=== PATIENT | male | born 1975 | race African-American/Black ===

== ENCOUNTER 2016-12-21 20:32 | Inpatient (IN) ==
--- NOTE | 2016-12-21 20:54 | EKG Report ---
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
[2016-12-21] MEDS ORDERED: SODIUM CHLORIDE 0.9% 2,000 ML IV STA (23:50)
[2016-12-21] MEDS ORDERED: PIPERACILLIN/TAZOBACTAM 3,375 MG in SODIUM CHLORIDE 0.9% 100 ML IV STA (23:50)
[2016-12-21] MEDS ORDERED: VANCOMYCIN INJ 1,000 MG in SODIUM CHLORIDE 0.9% 250 ML IV STA (23:51)
--- NOTE | 2016-12-21 23:54 | Emergency Department Note ---
Arrival - Arrival Chief Complaint: Shortness of Breath Stated Complaint: SOB x 3 days ED Nursing Triage Note: Patient to triage with c/o SOB x 3 days, worse with exertion. denies CP. Mode of Arrival: Ambulatory Time Seen by Provider: 12/21/16 23:09 - History of Present Illness HPI Narrative: This is a 41-year-old male of descent who developed abdominal discomfort 2 weeks ago which was not severe and which did not require him to seek medical attention who developed shortness of breath and right-sided chest pain which started today. His vital signs show a heart rate of 120 bpm with a room air O2 sat of 95%. His urine has been grossly bloody off and on for several months. Allergies/Adverse Reactions: Allergies Allergy/AdvReac Type Severity Reaction Status Date / Time No Known Allergies Allergy Unverified 12/21/16 20:52 Home Medications: Home Medications Medication Instructions Recorded Confirmed Type No Known Home Medications [No 12/21/16 12/21/16 History Known Home Medications] Review of System - Review of System Constitutional: Present: fever, weakness Eyes: Absent: redness, vision change, other Head/Ears/Nose/Throat: Absent: epistaxis, nasal drainage Respiratory: Present: cough. Absent: respiratory distress, wheezing Cardiovascular: Present: dyspnea on exertion Gastrointestinal: Absent: nausea, vomiting, diarrhea Genitourinary male: Present: hematuria Musculoskeletal: Absent: joint swelling, lower back pain Skin: Absent: change in color, change in hair/nails Neurological: Absent: numbness, paresthesias, confusion Psychiatric: Absent: anxiety, suicidal thoughts, homicidal thoughts Endocrine: Absent: heat intolerance, polydipsia, polyuria Hematological/Lymphatic: Absent: easy bruising, lymphadenopathy Allergic/Immunologic: Absent: urticaria, itchy eyes Medical,Surgical,& Family Hx - Medical History Respiratory: History of: Asthma - Social History Smoking Status: Current every day smoker Frequency of Alcohol Use: Rarely Type of Drug Use: None Exam Vital Signs: Vital Signs Temperature 99.5 F 12/21/16 20:36 Pulse Rate 140 H 12/21/16 20:36 Respiratory Rate 26 H 12/21/16 20:36 Blood Pressure 133/96 12/21/16 20:36 O2 Sat by Pulse Oximetry 100 12/21/16 20:36 - General Exam limited due to: ALOC - Head Head exam: Present: atraumatic - Eye Eye exam: Present: PERRL, EOMI - ENT ENT exam: Present: normal exam, mucous membranes dry - Neck Neck exam: Present: normal inspection, full ROM - Chest Chest inspection: Present: normal inspection, symmetric chest wall rise - Respiratory Respiratory exam: Present: normal lung sounds bilaterally - Cardiovascular Cardiovascular exam: Present: tachycardia - Abdominal Exam Abdominal exam: Present: soft, normal bowel sounds - Extremities Exam Extremities exam: Present: normal inspection - Back Exam Back exam: Present: normal inspection. Absent: CVA tenderness (R), CVA tenderness (L) - Neurological Exam Neurological exam: Present: alert, oriented X3 - Psychiatric Psychiatric exam: Present: normal affect, normal mood - Skin Skin exam: Present: warm, dry Course Course Narrative: The CT scan of the chest shows a right lingular infiltrate with associated para pneumonic effusion has a heart rate of 130 in spite of 2 L of normal saline. His blood pressure is normal he is not hypoxic but he is complaining of right pleuritic chest pain. Pulmonary embolus was ruled out by CT scan. The case was discussed with the hospitalist who agreed to admit him to the hospital for intravenous antibiotics and further evaluation. Results - Labs CBC & BMP: 12/22/16 00:10 12/22/16 00:10 Disposition Clinical Impression: Lingular pneumonia, Parapneumonic effusion, Sepsis Disposition: Still a Patient Additional Instructions: The CT scan shows a right lingular infiltrate with a and associated parapneumonic effusion. The patient has chest pain but no hypoxemia nor hypotension. The patient continues to have tachycardia with a rate of 130 bpm after 2 L of intravenous fluids. Therefore it seems reasonable that the patient be admitted for intravenous antibiotics and further evaluation. The case was discussed with the hospitalist team who agreed to admit the patient.
[2016-12-22 00:30] LABS: Basophils % 0.4 % (0.0-0.8); Hemoglobin 13.7 GM/DL (14.0-18.0); Immature Granulocytes % 0.5 %; Immature Granulocytes Absolute 0.05 #; Lymphocytes # 1.4 10*3/uL (1.4-4.0); Lymphocytes % 14.4 % (21.2-54.2); Mean Corpuscular HGB Conc 34.3 GM/DL (32-36); Mean Corpuscular Hemoglobin 33 PG (27-34); Mean Corpuscular Volume 96.4 FL (87-102); Mean Platelet Volume 11.2 FL (9.6-12.0); Monocytes # 0.4 10*3/uL (0.11-0.8); Monocytes % 4.4 % (1.7-12.7); Neutrophils # 7.9 10*3/uL (1.4-7.4); Neutrophils % 80.3 % (38.7-73.9); Platelet Count 118 T/CUMM (130-400); Red Blood Count 4.15 MC/CUMM (3.8-5.5); Red Cell Distribution Width 12.2 % (9.3-17.3); White Blood Count 9.8 T/CUMM (4-12)
[2016-12-22 00:38] LABS: Apearance,Urine Slightly Hazy (Clear); Bilirubin,Urine Small mg/dL (Negative); Blood, Urine Moderate mg/dL (Negative); Glucose,Urine (UA) Negative (Negative); Hyaline Casts,Urine 54 /LPF (0-3); Ketones,Urine Negative (Negative); Mucus,Urine Many /LPF (Occasional); Nitrite,Urine Negative (Negative); Protein,Urine >=500 MG/DL; RBC,Urine 3 /HPF (0-4); Urine Color Amber (Yellow); Urine Specific Gravity 1.033 (1.001-1.035); WBC,Urine 3 /HPF (0-6)
[2016-12-22 00:47] LABS: VBG Base Excess -5.3 MEQ/L (0-4); VBG HCO3 19.6 MEQ/L (24-28); VBG Oxygen Saturation 70.3 %; VBG PCO2 42.1 MMHG (41-51); VBG PH 7.306; VBG PO2 46.5 MMHG (17-40)
[2016-12-22 00:50] LABS: Albumin 3.2 G/DL (3.4-5.0); Bilirubin,Total 2.4 MG/DL (0.2-1.0); Calcium 8.4 MG/DL (8.5-10.1); Osmolality,Calculated 262.5 MOS/KG (273-304); Potassium 3.8 MMOL/L (3.5-5.1); Total Protein 7.5 G/DL (6.4-8.3)
[2016-12-22 00:51] LABS: Lactic Acid 4.1 MMOL/L (0.4-2.0)
[2016-12-22] MEDS ORDERED: PIPERACILLIN/TAZOBACTAM 3,375 MG VIAL IV ONE (00:56)
[2016-12-22] MEDS ORDERED: SODIUM CHLORIDE 0.9% 100 ML IV ONE (00:56)
[2016-12-22] MEDS ORDERED: VANCOMYCIN 1,000 MG VIAL ONE (00:56)
[2016-12-22] MEDS ORDERED: KETOROLAC 30 MG/1 ML VIAL IV STA (01:42)
[2016-12-22] MEDS ORDERED: KETOROLAC 30 MG/1 ML VIAL ONE (01:50)
--- NOTE | 2016-12-22 03:34 | Hospitalist History & Physical ---
Assessment and Plan (1) Cavitary pneumonia Status: Acute Assessment and plan: This is accompanied by fevers and some night sweats at home the patient was been losing weight. Concerned about chronic granulomatous infections. He gives a history of diabetes that just started getting sick but the seen on CT of the chest does not appear acute. This patient should be admitted to a negative pressure room. He does have significant hypoxia I will therefore need to be admitted to the intensive care unit. Obtain a chest x-ray PA and lateral. Current Visit: Yes (2) Pleural effusion Status: Acute Assessment and plan: This could be a parapneumonic effusion. Ligaments cannot be ruled out. Patient will be consulted to pulmonology alongside a consultation to infectious disease to assist with evaluation and management. Current Visit: Yes (3) Weight loss Status: Acute Assessment and plan: Evaluate for chronic infection including HIV granulomatous infection also for malignancy. Current Visit: Yes (4) Thrombocytopenia Status: Acute Current Visit: Yes (5) Chronic anemia Status: Acute Assessment and plan: Repeat CBC in the morning Current Visit: Yes (6) Abnormal EKG Status: Acute Assessment and plan: Patient is tachycardic but abnormalities noted is a poor progression of anterior forces possibly an old MRI. Will check echocardiogram Current Visit: Yes (7) Abnormal CT of liver Status: Acute Current Visit: Yes (8) Acute respiratory failure with hypoxia Status: Acute Assessment and plan: Continue supplemental oxygen as the patient seemed to be doing better with that. Current Visit: Yes History of Present Illness Chief complaint: Shortness of breath cough fever no hemoptysis/fatigue and wt loss History of present illness: Mr. 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 Patient was seen by the emergency room physician noted a CT scan of the abdomen for some reason and the CT scan of the chest reveals a small pleural effusion of the possible thickening of the pleura on the right and anterior chest on the right side showing cavitary consolidation. Patient has never been evaluated for HIV. He is in the hospital accompanied by her fiancee. Does not acknowledge illicit behavior. Is a smoker many years and has a pack of cigarettes in his pants. No history of hemoptysis no history of exotic travel. He has history of childhood asthma which he has not needed to be treated since he was a teenager. Home Medications Medication Instructions Recorded Confirmed Type No Known Home Medications [No 12/21/16 12/21/16 History Known Home Medications] Allergies Allergy/AdvReac Type Severity Reaction Status Date / Time No Known Allergies Allergy Unverified 12/21/16 20:52 Medical,Surgical,& Family Hx - Medical History Respiratory: History of: Asthma - Social History Smoking Status: Current every day smoker Frequency of Alcohol Use: Rarely Type of Drug Use: None Review of systems: A 12 point system assessment was done. What stands out is the chief complaint and history of presenting illness. This patient obviously has lost some weight. He has multiple scars on his legs he does have a multiple scars on his legs most likely associated with his occupation occasional cough no obvious adenopathy very tired. The rest of the 12 point system assessment is unremarkable Exam - Constitutional Vitals: Period Temp Pulse Resp BP Sys/Zayas Pulse Ox Last 24 Hr 99.5 F-99.5 F 140-140 26-26 133-133/96-96 100 General appearance: under weight, other (Looks extremely tired with general malaise) - Head Head exam: Present: normocephalic, atraumatic, other - Eye Eye exam: Present: EOMI, other (Mild icterus) Pupils: Present: RUCHI - ENT ENT exam: Present: normal exam, other - Neck Neck exam: Present: normal inspection, other (No obvious) - Respiratory Respiratory exam: Present: other (There are to auscultation in the right base some crackles inhaled bilaterally and expiratory wheezing more so on the right than the left) - Cardiovascular Cardiovascular exam: Present: regular rate and rhythm - GI/Abdominal GI/Abdominal exam: Present: other (Palpable liver age which is slightly tender) - Neurological Exam Neurological exam: Present: alert, oriented X3, CN II-XII intact - Skin Skin exam: Present: normal color, warm, dry, other (Report discussed in the limb suspicion of the legs.) Results - Labs CBC & BMP: 12/22/16 00:10 12/22/16 00:10 Lab Results: I have reviewed the past 24 hour labs (Chronic anemia with normal MCV low platelet count of 118,000.ABGs show some hypoxemia on room air with a PO2 of 46 mild hyponatremia creatinine 1.3 BUN of 9 LFTs of AST of 84 ALT of 51 alk phos of 134 total bilirubin of 2.4 calcium of 8.4 C-reactive protein 1.25 ( high total protein of 7.5 albumin of 3.2. Urinalysis is slightly hazy greater than 500 protein small bilirubin urobilinogen of 4.0 a lot of urine mucus for the presence of hyaline casts severe RBCs 3 WBCs leukocyte esterase all negative nitrates was negative)
[2016-12-22] MEDS ORDERED: LEVOFLOXACIN INJ 150 ML IV ONE (06:25)
[2016-12-22] MEDS ORDERED: ACETAMINOPHEN 325 MG TABLET ONE (06:25)
[2016-12-22] MEDS: LEVOFLOXACIN INJ 750 MG in PREMIX 1 EACH IV SCH (06:27)
[2016-12-22] MEDS: ACETAMINOPHEN 325 MG TABLET PO PRN (06:27)
--- NOTE | 2016-12-22 06:56 | CT Report ---
Exam: CT chest PE study, Date: 12/21/2016 11:49 PM Indication: Hypoxemia and tachycardia Comparison: None Total DLP 467.2 Technical: Images were obtained from the thoracic inlet through the lung bases with 100 cc of Omnipaque 350 with axial and coronal imaging available for review.Dose reduction was performed with decreasing kv and mA and automated exposure. 3-D MIP images were obtained Findings: The study was initially reviewed by C.. The pulmonary outflow tract, left and right proximal pulmonary arteries, first-order, second-order and third order branches reveal no evidence of pulmonary thromboemboli. There is a right pleural effusion present. There is suggestion of a consolidation present in the right base anteriorly measuring 4.5 x 3.5 cm. Underlying cardiac enlargement is present. Minimal groundglass density in the left lung. The abdominal structures will be described with CT scan of the abdomen pelvis below Impression: 1. Right lower lobe pneumonia suspected with a right pleural effusion 2. Cardiomegaly. Exam: CT abdomen pelvis w con Date: 12/21/2016 11:49 PM Comparison: None Indication: Hypoxia abdominal pain Total DLP: 467.2 mGy*cm Technical: Images were obtained from the lung bases to the iliac crest continuation through the pelvis with 100 cc of Omnipaque 350 with axial sagittal coronal imaging available for review. Dose reduction was performed with decreasing kv and mA and automated exposure Findings: Liver and Spleen: Liver hepatic and portal veins unremarkable. Spleen is intact. Gallbladder and Pancreas: Unremarkable Adrenals: Unremarkable Kidneys: Both kidneys are equally perfused and demonstrate no evidence for obstructive uropathy. Stomach: Incomplete distended with air-fluid and debris Retroperitoneum: No enlarged lymph nodes. Aorta and IVC: No obvious aneurysm aorta vessels, minimal atherosclerotic plaque present and IVC are unremarkable. Bowel and Mesentery: There is no evidence for bowel obstruction. No evidence of appendicitis diverticulosis or diverticulitis present. Pelvis: Bladder: Partially distended with contrast. Fluid: No free fluid identified. Lymph nodes: No enlarged lymph nodes. Pelvic organs: Some calcifications are present in the seminal vesicles. The prostate gland is otherwise demonstrated without obvious abnormality. Osseous structures: No suspicious appearing osseous abnormalities noted. Impression: 1. No acute intra-abdominal or pelvic pathology demonstrated. PROCEDURE INTERPRETED AT [facility] DEPARTMENT OF RADIOLOGY Final Report Signed by: Dr. Chema Suresh
--- NOTE | 2016-12-22 07:34 | XRay Report ---
Exam: XR chest 2V Date: 12/22/2016 3:49 AM Indication: Cavitary pneumonia pleural effusion Comparison: None Technical: PA lateral Findings: Examination reveals right middle lobe pneumonic infiltrate measuring up to approximately 4.3 cm. Mild cardiomegaly is present. Tiny low volume effusions present. No obvious pneumothorax. Oxygen tubing external cardiac leads are present. The bony structures reveal no acute findings Impression: 1. Cardiomegaly with low volume right effusion 2. 4.3 cm consolidation suspected in the right middle lobe suggestive of pneumonic infiltrate PROCEDURE INTERPRETED AT [facility] DEPARTMENT OF RADIOLOGY Final Report Signed by: Dr. Chema Suresh
[2016-12-22] MEDS ORDERED: ENOXAPARIN 40 MG/0.4 ML SYRINGE ONE (08:01)
[2016-12-22 08:07] LABS: HIV Antigen/Antibody Result Nonreactive (Nonreactive)
[2016-12-22] MEDS: ENOXAPARIN 40 MG/0.4 ML SYRINGE SUBCUT SCH (08:15)
[2016-12-22] MEDS ORDERED: PIPERACILLIN/TAZOBACTAM 3,375 MG in SODIUM CHLORIDE 0.9% 100 ML IV SCH (10:00)
--- NOTE | 2016-12-22 10:27 | Hospitalist Progress Note ---
Assessment and Plan (1) Pneumonia Status: Acute Assessment and plan: Impression: 1. Right-sided pneumonia 2. Seizure 3. Nicotine addiction Plan: I will be sure that appropriate sputum studies have been ordered. Nicotine replacement. Ativan as needed for seizures. Infectious disease and pulmonary will see the patient later this morning. This note was completed using [employer] voice recognition software. There may be varnishing machine operator errors as a result. Current Visit: Yes Qualifiers: Pneumonia type: due to unspecified organism Laterality: right Lung location: upper lobe of lung Qualified Code(s): J18.1 - Lobar pneumonia, unspecified organism Hospitalist: Subjective Interval history: Follow-up right-sided pneumonia. The patient tells me that he has been sick for about a week. He has had a cough with yellow sputum production and dyspnea. 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 He does not have any sick contacts. He smokes about 1 or 2 packs of cigarettes per week. He also consumes an undetermined amount of alcohol. He has not had any weight loss, headache, change in vision, or prior seizures. When he was transferring to his bed in the ICU he had a seizure. He is now awake and conversant. Exam - Constitutional Vitals: Period Temp Pulse Resp BP Sys/Zayas Pulse Ox Last 24 Hr 96.5 F-99.5 F 115-144 15-26 120-155/92-109 94-100 Vital signs are noted above. There is no meningismus. Heart is regular with no murmur or gallop. Lungs are clear with rales in the anterior chest on the right. Abdomen is soft without mass. There is no lymphadenopathy in the neck. He is awake and conversant. There is no ophthalmoplegia noted. Results - Labs CBC & BMP: 12/22/16 00:10 12/22/16 00:10 Lab Results: I have reviewed the past 24 hour labs
--- NOTE | 2016-12-22 14:52 | Pulmonology Consult Note ---
Assessment and Plan (1) Abnormal liver function test Status: Acute Assessment and plan: Patient's bilirubin was 2.4 and he does have a history of drinking alcohol regularly. Current Visit: Yes (2) Acute respiratory failure with hypoxia Status: Acute Assessment and plan: The patient has a right middle lobe pneumonia and cardiomegaly and comes in with shortness of breath and hypoxemia. He apparently is more comfortable now for Current Visit: Yes (3) Pneumonia Status: Acute Assessment and plan: The patient has a right middle lobe pneumonia. I doubt this is TB. It certainly could be anaerobic infection. Current Visit: Yes Qualifiers: Pneumonia type: due to unspecified organism Laterality: right Lung location: middle lobe of lung Qualified Code(s): J18.1 - Lobar pneumonia, unspecified organism (4) Seizure Status: Acute Assessment and plan: Patient apparently had a seizure earlier. Current Visit: Yes History of Present Illness Chief complaint: Pneumonia History of present illness: Mr. Bunch is a 41 year old black male that apparently is a heavy smoker and drinker that came in with some abdominal pain along with coughing and shortness of breath. He said he started feeling badly last week with some cough and congestion and he did get a little short of breath. He is unsure if he had much fever. He is not coughing up any blood. He says he has not lost any weight. He says he is always been thin for quite some time. He says his appetite was okay until last week. 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 He came to the emergency room and was found to have a right middle lobe pneumonia. Home Medications Medication Instructions Recorded Confirmed Type Albuterol Sulfate [Proair HFA] 2 puffs INH DIRECTED PRN 12/22/16 12/22/16 History Allergies Allergy/AdvReac Type Severity Reaction Status Date / Time No Known Allergies Allergy Unverified 12/21/16 20:52 - Constitutional Constitutional: Present: chills, fever(s). Absent: fatigue, weight loss - EENT Eyes: Absent: loss of vision Ears: Absent: decreased hearing Nose, mouth and throat: Absent: dysphagia, headache(s), sinus pressure - Cardiovascular Cardiovascular: Present: chest pain at rest, dyspnea. Absent: edema, orthopnea , PND - Respiratory Respiratory: Present: cough, dyspnea, wheezing, change in phlegm color. Absent : hemoptysis - Gastrointestinal Gastrointestinal: Present: abdominal pain. Absent: change in bowel habits, dysphagia, nausea, vomiting - Genitourinary Genitourinary: Absent: difficulty urinating, dysuria, flank pain, hematuria - Musculoskeletal Musculoskeletal: Absent: arthralgias, muscle weakness - Neurological Neurological: Absent: abnormal speech, focal weakness, paresthesias Exam ([facility]) H&P - Constitutional Vitals: Period Temp Pulse Resp BP Sys/Zayas Pulse Ox Last 24 Hr 96.5 F-99.5 F 115-144 14-36 120-155/90-109 94-100 General appearance: mild distress (Patient is sitting up talking and is relatively comfortable at present), under weight - Head Head exam: Present: normal inspection, normocephalic - Eye Eye exam: Present: EOMI. Absent: scleral icterus Pupils: Present: RUCHI - ENT ENT exam: Present: other (He does have dental caries and poor dentition) - Neck Neck exam: Absent: lymphadenopathy, thyromegaly - Respiratory Respiratory exam: Present: rales (He does have coarse breath sounds with some crackles in the right chest), rhonchi, wheezes. Absent: accessory muscle use - Cardiovascular Cardiovascular exam: Present: regular rate and rhythm, tachycardia. Absent: gallop, systolic murmur - GI/Abdominal GI/Abdominal exam: Present: normal bowel sounds, soft. Absent: organomegaly, tenderness - Extremities Exam Extremities exam: Absent: calf tenderness, edema - Neurological Exam Neurological exam: Present: alert, CN II-XII intact - Psychiatric Psychiatric exam: Present: normal affect - Skin Skin exam: Present: warm, dry. Absent: rash Medical,Surgical,& Family Hx - Medical History Neurology: History of: Seizures (This admission 12/22/16) Respiratory: History of: Asthma - Family History Family History: Reports;: Family Cancer (father), Family Diabetes (father and mother), Family Heart Disease (sister), Family Hypertension (sister), Family Stroke (sister) - Social History Smoking Status: Current every day smoker Frequency of Alcohol Use: Frequently Type of Drug Use: None Results - Labs CBC & BMP: 12/22/16 00:10 12/22/16 00:10 Labs: His PO2 is 46 with a PCO2 of 42 and a pH of 7.3. - Diagnostic Findings Procedure: Chest x-ray: image reviewed by me, report reviewed by me (Chest x- ray shows cardiomegaly and a right middle lobe consolidation.), CT - chest: image reviewed by me, report reviewed by me (CT shows a right middle lobe consolidation.)
--- NOTE | 2016-12-22 16:02 | Infectious Disease Consult ---
Assessment and Plan (1) Pneumonia Status: Acute Assessment and plan: Patient has pneumonia involving right lower lung. It is not as severe pneumonia , that is not severe enough to account for the degree of hypoxemia he has. Would classify this as community-acquired pneumonia. Tuberculosis is highly unlikely as this is an acute presentation and there are no associated symptoms such as weight loss night sweats hemoptysis; further the infiltrate is not classic for TB. Recommendations: 1. Discontinue Zosyn 2. Continue levofloxacin for community-acquired pneumonia 3. Check urine Legionella and strep pneumo antigens Thank you very much for the consult. Will follow. Current Visit: Yes Qualifiers: Pneumonia type: due to unspecified organism Laterality: right Lung location: middle lobe of lung Qualified Code(s): J18.1 - Lobar pneumonia, unspecified organism (2) Thrombocytopenia Status: Acute Assessment and plan: Not sure because of this. Patient is HIV negative. Continue to monitor. Current Visit: Yes (3) Abnormal liver function test Status: Acute Assessment and plan: AST higher than ALT; suspect cause may be his alcohol consumption. He told me only drinks 1 beer per day but he may have underestimated this. Current Visit: Yes (4) Acute respiratory failure with hypoxia Status: Acute Assessment and plan: Patient's hypoxemia is out of keeping with the relatively small infiltrate on lung imaging. I think there may be be another cause for this; his BNP was quite high and I am not sure if he may have an element of CHF. Current Visit: Yes History of Present Illness Chief complaint: Pneumonia, suspected TB History of present illness: Mr. Bunch is a 41 year old male who does not have any chronic medical illnesses and presented to hospital yesterday after work because of worsening shortness of breath. The patient started having a "cold "a week ago with mild cough and nasal congestion. His fiance had similar symptoms. Over the weekend , which is about 3 days ago, the patient started coughing more with yellow sputum. He started also having nausea and vomited once. No abdominal pain. Regarding the cough he has had no hemoptysis, no pleuritic chest pain. He denies fever and night sweats. He has not lost any weight over the past few weeks. Denies known contact to tuberculosis. No recent travel, no pets. Denies illicit drug use; says he drinks 1 beer per day after work. 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 Patient has not noted to be hypoxemic and therefore admitted to the intensive care unit. There was concern for TB by primary care provider and so he was admitted to a negative pressure room. I am asked to assist with management. Home Medications Medication Instructions Recorded Confirmed Type Albuterol Sulfate [Proair HFA] 2 puffs INH DIRECTED PRN 12/22/16 12/22/16 History Allergies Allergy/AdvReac Type Severity Reaction Status Date / Time No Known Allergies Allergy Unverified 12/21/16 20:52 12 point system: reviewed and no additional remarkable complaints except as stated (Per HPI, also patient had a seizure this morning just as he was transferred to the ICU from the emergency room, generalized tonic-clonic lasting about a minute.) Medical,Surgical,& Family Hx - Medical History Neurology: History of: Seizures (This admission 12/22/16) Respiratory: History of: Asthma - Family History Family History: Reports;: Family Cancer (father), Family Diabetes (father and mother), Family Heart Disease (sister), Family Hypertension (sister), Family Stroke (sister) - Social History Smoking Status: Current every day smoker Frequency of Alcohol Use: Frequently Type of Drug Use: None Infectious Disease Exam H&P - Constitutional Vitals: Vital Signs Temp Pulse Resp BP Pulse Ox 97.8 F 117 H 21 130/101 100 12/22/16 11:00 12/22/16 15:00 12/22/16 15:00 12/22/16 15:00 12/22/16 15:00 Intake and Output 12/21/16 12/22/16 12/22/16 23:59 07:59 15:59 Intake Total 2350 / 2350 520 / 520 Output Total 0 / 0 Balance 2350 / 2350 520 / 520 Intake: IV 2350 / 2350 250 / 250 Levaquin Inj 750 mg In 150 / 150 Premix 1 Each @ 100 mls/ hr IV Q24H AUDI Rx#: [id number] Zosyn 3,375 mg In Ns 100 100 / 100 ml @ 200 mls/hr IV 1X ED STA Rx#:[id number] Zosyn 3,375 mg In Ns 100 100 / 100 ml @ 25 mls/hr IV Q8H AUDI Rx#:[id number] Ns 2,000 ml @ 999 mls/hr 1999 / 1999 IV 1X ED BOLUS STA Rx#: [id number] Vancomycin Inj 1,000 mg 250 / 250 In Ns 250 ml @ 250 mls/hr IV 1X ED STA Rx#: [id number] Oral 270 / 270 Output: Urine 0 / 0 Other: Voiding Method Toilet # Voids 1 # Bowel Movements 1 Weight 53.07 kg 54.1 kg Patient Weight 12/22/16 23:59 Weight 54.1 kg Exam: General: Patient notably dyspneic, but nontoxic-appearing, his face appeared a bit puffy HEENT: Mucous membranes pale pink and moist, anicteric acyanotic, RUCHI, no oropharyngeal exudates Neck: Supple, no thyroid gland enlargement, no lymphadenopathy Respiratory system: Breath sounds vesicular, no crepitations or wheezes Cardiovascular: Normal S1 and S2, no murmurs appreciated Abdomen: Normal bowel sounds, soft nontender throughout, no organomegaly or mass Genitourinary: No suprapubic pain or bladder distention Extremities: no edema Skin: No rash Reports - Labs CBC & BMP: 12/22/16 00:10 12/22/16 00:10 Labs: Laboratory Results - last 24 hr 12/21/16 12/22/16 12/22/16 00:36 00:10 00:10 WBC 9.8 RBC 4.15 Hgb 13.7 L Hct 40.0 L MCV 96.4 MCH 33 MCHC 34.3 RDW 12.2 Plt Count 118 L MPV 11.2 Neut % (Auto) 80.3 H Lymph % (Auto) 14.4 L Carter % (Auto) 4.4 Eos % (Auto) 0.0 Baso % (Auto) 0.4 Neut # (Auto) 7.9 H Lymph # (Auto) 1.4 Carter # (Auto) 0.4 Eos # (Auto) 0.0 Baso # (Auto) 0.0 Immature Gran % 0.5 Nucleated RBC % 0.0 Immature Gran # 0.05 Nucleated RBCs # 0.00 Immature Plt Fraction 0.0 VBG pH 7.306 VBG pCO2 42.1 VBG pO2 46.5 H VBG HCO3 19.6 L VBG Total CO2 18.6 VBG O2 Saturation 70.3 VBG Base Excess -5.3 L FiO2 21.00 Sodium 132 L Potassium 3.8 Chloride 97 L Carbon Dioxide 23 Anion Gap 15.8 H BUN 9 Creatinine 1.30 GFR Calculation 79 BUN/Creatinine Ratio 6.00 Glucose 97 POC Glucose Calculated Osmolality 262.5 L Lactic Acid 4.1 H Calcium 8.4 L Total Bilirubin 2.40 H AST 84 H ALT 51 Alkaline Phosphatase 134 H C-Reactive Protein B-Natriuretic Peptide Total Protein 7.5 Albumin 3.2 L Globulin 4.3 H Albumin/Globulin Ratio 0.7 L Urine Color Urine Appearance Urine pH Ur Specific Frederick Urine Protein Urine Glucose (UA) Urine Ketones Urine Blood Urine Nitrate Urine Bilirubin Urine Urobilinogen Urine Leukocytes Urine RBC Urine WBC Hyaline Casts Urine Mucus Ur Culture Indicated? HIV 1&2 Antigen & Ab 12/22/16 12/22/16 12/22/16 00:10 00:10 11:05 WBC RBC Hgb Hct MCV MCH MCHC RDW Plt Count MPV Neut % (Auto) Lymph % (Auto) Carter % (Auto) Eos % (Auto) Baso % (Auto) Neut # (Auto) Lymph # (Auto) Carter # (Auto) Eos # (Auto) Baso # (Auto) Immature Gran % Nucleated RBC % Immature Gran # Nucleated RBCs # Immature Plt Fraction VBG pH VBG pCO2 VBG pO2 VBG HCO3 VBG Total CO2 VBG O2 Saturation VBG Base Excess FiO2 Sodium Potassium Chloride Carbon Dioxide Anion Gap BUN Creatinine GFR Calculation BUN/Creatinine Ratio Glucose POC Glucose 97 Calculated Osmolality Lactic Acid Calcium Total Bilirubin AST ALT Alkaline Phosphatase C-Reactive Protein 1.25 H B-Natriuretic Peptide Total Protein Albumin Globulin Albumin/Globulin Ratio Urine Color Kendal Urine Appearance Slightly hazy Urine pH 5.0 Ur Specific Frederick 1.033 Urine Protein >=500 Urine Glucose (UA) Negative Urine Ketones Negative Urine Blood Moderate Urine Nitrate Negative Urine Bilirubin Small H Urine Urobilinogen 4.0 H Urine Leukocytes Negative Urine RBC 3 Urine WBC 3 Hyaline Casts 54 Urine Mucus Many Ur Culture Indicated? Ordered separately HIV 1&2 Antigen & Ab 12/22/16 12/22/16 11:24 Unknown WBC RBC Hgb Hct MCV MCH MCHC RDW Plt Count MPV Neut % (Auto) Lymph % (Auto) Carter % (Auto) Eos % (Auto) Baso % (Auto) Neut # (Auto) Lymph # (Auto) Carter # (Auto) Eos # (Auto) Baso # (Auto) Immature Gran % Nucleated RBC % Immature Gran # Nucleated RBCs # Immature Plt Fraction VBG pH VBG pCO2 VBG pO2 VBG HCO3 VBG Total CO2 VBG O2 Saturation VBG Base Excess FiO2 Sodium Potassium Chloride Carbon Dioxide Anion Gap BUN Creatinine GFR Calculation BUN/Creatinine Ratio Glucose POC Glucose Calculated Osmolality Lactic Acid Calcium Total Bilirubin AST ALT Alkaline Phosphatase C-Reactive Protein B-Natriuretic Peptide 3781 H Total Protein Albumin Globulin Albumin/Globulin Ratio Urine Color Urine Appearance Urine pH Ur Specific Frederick Urine Protein Urine Glucose (UA) Urine Ketones Urine Blood Urine Nitrate Urine Bilirubin Urine Urobilinogen Urine Leukocytes Urine RBC Urine WBC Hyaline Casts Urine Mucus Ur Culture Indicated? HIV 1&2 Antigen & Ab Nonreactive - Reports Microbiology: Microbiology 12/22/16 Unknown Cryptococcal Antigen - Final Serum Negative for Cryptococcus Ag - Diagnostic Findings Procedure: Chest x-ray: image reviewed by me, report reviewed by me (Infiltrate in right midlung), CT Abdomen and Pelvis: report reviewed by me (Unremarkable), CT - chest: report reviewed by me, image reviewed by me (Right mid to lower lung infiltrate)
--- NOTE | 2016-12-22 19:40 | ECHO Report ---
Larry Bunch Exam Date: 12/22/2016 07:50 Referring Physician: Technologist: ko LincolnS, RVT Age: 41 Ht (in): 74 Wt (lb): 117 Gender: M Exam Location: [facility] Echo Indications: Abnormal electrocardiogram [ECG] [EKG], Pneumonia, Thrombocytopenia, Chronic anemia, Acute resp failure w/hypoxia BP: 133 / 96 HR: 231 Rhythm: Sinus Technical Quality: Good IMPRESSIONS Severely reduced LV systolic function with global hypokinesis, ejection fraction 10%. Grade 3/4 diastolic dysfunction consistent with impaired restricted filling pattern. Mild biventricular dilation with biventricular hypokinesis. Mild right atrial enlargement. Mild mitral and pulmonic regurgitation. Moderate tricuspid regurgitation. Pulmonary hypertension pulmonary artery pressure estimated at 48 mmHg. MEASUREMENTS (Male / Female) Normal Values 2D ECHO LV Diastolic Diameter PLAX 6.1 cm 4.2 - 5.9 / 3.9 - 5.3 cm LV Systolic Diameter PLAX 5.9 cm LV Fractional Shortening PLAX 2.9 % IVS Diastolic Thickness 0.7 cm 0.6 - 1.0 / 0.6 - 0.9 cm LVPW Diastolic Thickness 0.8 cm 0.6 - 1.0 / 0.6 - 0.9 cm RV Internal Dim ED PLAX 3.6 cm Aortic Root Diameter 2.5 cm LA Systolic Diameter LX 2.9 cm 3.0 - 4.0 / 2.7 - 3.8 cm DOPPLER TR Peak Velocity 307.0 cm/s TR Peak Gradient 37.7 mmHg FINDINGS Left Ventricle Mildly increased left ventricular cavity size. Normal left ventricular wall thickness. Left ventricular ejection fraction is estimated at 10%. Right Ventricle The right ventricle is mildly dilated and hypokinetic. Right Atrium The right atrium is mildly enlarged. Left Atrium The left atrium is normal in size. Mitral Valve Morphologically normal mitral valve. Mild mitral valve regurgitation. Aortic Valve Morphologically normal aortic valve without significant sclerosis or stenosis. There is no aortic regurgitation. Tricuspid Valve Morphologically normal tricuspid valve. Moderate tricuspid valve regurgitation. Tricuspid regurgitation velocities suggest a PAP of 48 mmHg. Pulmonic Valve Morphologically normal pulmonic valve. Mild pulmonary valve regurgitation. Pericardium Normal pericardium without effusion. Aorta Normal ascending aorta dimension. Justa Hammond MD (Electronically Signed) Final Date: 22 December 2016 19:39
--- NOTE | 2016-12-22 19:57 | CT Report ---
CT head/brain wo con INDICATION: Altered mental status/confusion The total DLP is 173 mGy*cm. COMPARISON: None available Technique: Serial axial tomographic images of the brain were obtained without the use of intravenous contrast. Dose reduction: This CT exam was performed using one or more of the following dose reduction techniques: Automated exposure control, automated adjustment of the mA and/or KV according to patient size, or use of iterative reconstruction technique. Findings: Mild generalized atrophy is noted with mild prominence of the sulci and cortical volume loss, which is somewhat advanced for patient's stated age. Periventricular white matter hypodensity changes are noted bilaterally which do not demonstrate mass effect and are nonspecific but favored to represent sequela of chronic microvascular ischemia. There is no evidence of vascular territory infarct or acute intracranial hemorrhage. Nonspecific hypodensities noted within the prakash, which may be artifactual or represent age indeterminate lacunar infarcts. The gomez-white matter differentiation is otherwise generally maintained. There is no hydrocephalus. The basilar cisterns are patent. Right maxillary sinus is completely opacified with somewhat increased density, which may represent inspissated mucus or fungal sinusitis. Otherwise, visualized paranasal sinuses, mastoid air cells and middle ear cavities are predominantly clear. The included orbits and their contents appear within normal limits. The visualized osseous structures and overlying soft tissues of the skull and face demonstrate no acute abnormality. IMPRESSION: No acute intracranial hemorrhage or infarction. Somewhat advanced atrophy and sequela of chronic microvascular ischemia. Additionally, vague hypodensities within the prakash are suggested, which may be artifactual although underlying lacunar infarcts of indeterminate age would be an alternate consideration. If further evaluation is warranted, MRI would be recommended. High density opacification of the right maxillary sinus may represent inspissated mucus or fungal sinusitis if there is no history of trauma. PROCEDURE INTERPRETED AT [facility] DEPARTMENT OF RADIOLOGY Final Report Signed by: Jarrett Cast
[2016-12-22] MEDS: LORazepam 2 MG/1 ML VIAL IV PRN (23:16)
[2016-12-23] MEDS ORDERED: DEXTROSE 50% 25 GM/50 ML SYRINGE IV ONE (00:25)
[2016-12-23] MEDS: DEXTROSE 50% 25 GM/50 ML SYRINGE IV PRN ×2 (00:34→04:34)
--- NOTE | 2016-12-23 07:06 | XRay Report ---
Exam: XR chest 1V portable Date: 12/23/2016 4:00 AM Indication: Pneumonia Comparison: 12/22/2016 Technical: AP Findings: Cardiomegaly is present. Increasing consolidation present in the right infrahilar region. No obvious pneumothorax. The mediastinum and bony structures are otherwise intact. Impression: 1. Increasing pneumonic infiltrate in the right perihilar infrahilar region right middle lobe area 2. Cardiomegaly without decompensation PROCEDURE INTERPRETED AT [facility] DEPARTMENT OF RADIOLOGY Final Report Signed by: Dr. Chema Suresh
--- NOTE | 2016-12-23 08:09 | Pulmonology Progress Note ---
Pulmonary - PN: Subj Interval history: Patient is a 41-year-old black man that comes in with shortness of breath and a right middle lobe pneumonia. He also has cardiomegaly and it looks like he has an ejection fraction of 10%. He says he will drink up to a sixpack of beer a day and sometimes will drink of whiskey with this. 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 He is having some mild alcohol withdrawal now. He did get some Ativan during the night. He says his cough and shortness of breath are better. He is not coughing up much sputum. He did not have any fever. His chest x-ray actually looks better today. Exam (Progress Note) - Constitutional Vitals: Period Temp Pulse Resp BP Sys/Zayas Pulse Ox Last 24 Hr 96.5 F-98.5 F 115-144 14-39 115-155/76-110 95-100 Exam: General appearance: mild distress (Patient is resting okay in bed but he does have some anxiety and nervousness. His heart rate is around 120.), under weight - Head Head exam: Present: normal inspection, normocephalic - Eye Eye exam: Present: EOMI. Absent: scleral icterus Pupils: Present: RUCHI - ENT ENT exam: Present: other (He does have dental caries and poor dentition) - Neck Neck exam: Absent: lymphadenopathy, thyromegaly - Respiratory Respiratory exam: Present: He has good breath sounds bilaterally with some mild crackles bilaterally. He is not wheezing now. - Cardiovascular Cardiovascular exam: Present: regular rate and rhythm, tachycardia. Absent: gallop, systolic murmur - GI/Abdominal GI/Abdominal exam: Present: normal bowel sounds, soft. Absent: organomegaly, tenderness - Extremities Exam Extremities exam: Absent: calf tenderness, edema, he has no signs of phlebitis - Neurological Exam Neurological exam: Present: alert, CN II-XII intact - Psychiatric Psychiatric exam: Present: normal affect - Skin Skin exam: Present: warm, dry. Absent: rash Results - Labs CBC & BMP: 12/22/16 00:10 12/22/16 00:10 - Diagnostic Findings Procedure: Chest x-ray: image reviewed by me, report reviewed by me (Chest x- ray shows cardiomegaly and the right midlung pneumonia is better.) Assessment and Plan (1) Abnormal liver function test Status: Acute Assessment and plan: Patient's bilirubin was 2.4 and he does have a history of drinking alcohol regularly. Current Visit: Yes (2) Acute respiratory failure with hypoxia Status: Acute Assessment and plan: The patient has a right middle lobe pneumonia and cardiomegaly and comes in with shortness of breath and hypoxemia. His infiltrate is better. He looks like he has a severe cardiomyopathy causing most of his problems. Current Visit: Yes (3) Pneumonia Status: Acute Assessment and plan: The patient has a right middle lobe pneumonia. I doubt this is TB. It certainly could be anaerobic infection. Current Visit: Yes Qualifiers: Pneumonia type: due to unspecified organism Laterality: right Lung location: middle lobe of lung Qualified Code(s): J18.1 - Lobar pneumonia, unspecified organism (4) Seizure Status: Acute Assessment and plan: Patient apparently had a seizure earlier. He will need to be watched for DTs. 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 Will start low-dose Coreg and cardiology will need to evaluate. Current Visit: Yes
[2016-12-23] MEDS ORDERED: FUROSEMIDE 40 MG/4 ML VIAL IV ONE (08:13)
[2016-12-23] MEDS: NICOTINE 14 MG/24 HR PATCH TRANSDERM SCH (08:43)
[2016-12-23] MEDS: ENOXAPARIN 40 MG/0.4 ML SYRINGE SUBCUT SCH (08:43)
[2016-12-23] MEDS: CARVEDILOL 3.125 MG TABLET PO SCH ×2 (08:43→22:34)
[2016-12-23] MEDS: LEVOFLOXACIN INJ 750 MG in PREMIX 1 EACH IV SCH (08:43)
--- NOTE | 2016-12-23 09:42 | Hospitalist Progress Note ---
Assessment and Plan (1) Pneumonia Status: Acute Assessment and plan: Impression: 1. Right-sided pneumonia 2. Acute systolic congestive heart failure, etiology not known 3. Seizure 4. Possible chronic alcoholism Plan: He is not on much in the way of anything for his heart failure. He is on a low- dose of Coreg. If he develops pulmonary vascular congestion, will add a diuretic. Continue current antibiotics. This note was completed using [employer] voice recognition software. There may be medical illustrator errors as a result. Current Visit: Yes Qualifiers: Pneumonia type: due to unspecified organism Laterality: right Lung location: middle lobe of lung Qualified Code(s): J18.1 - Lobar pneumonia, unspecified organism Hospitalist: Subjective Interval history: Follow-up right middle lobe pneumonia. Pulmonary and infectious disease have both seen the patient, and none of us think that he has tuberculosis. I think we can discontinue isolation. Echocardiogram showed an ejection fraction of 10%. Etiology and chronicity is not known. He may have an alcoholic cardiomyopathy. Exam - Constitutional Vitals: Period Temp Pulse Resp BP Sys/Zayas Pulse Ox Last 24 Hr 97.4 F-98.5 F 115-144 12-39 115-144/76-110 95-100 Vital signs are noted above. Heart is regular with distant tones. He has a soft systolic murmur. I do not hear a gallop. Chest is clear anteriorly. I could not get him to wake up enough to sit up for an examination of the posterior lung dos santos. Abdomen is nontender. He is currently sleeping. Results - Labs CBC & BMP: 12/22/16 00:10 12/22/16 00:10 Lab Results: I have reviewed the past 24 hour labs
--- NOTE | 2016-12-23 12:12 | Infectious Disease Progress ---
Assessment and Plan (1) Pneumonia Status: Acute Assessment and plan: Patient has pneumonia involving right lower lung - CAP vs aspiration. Today his told me he drinks a lot. TB not likely. Recommendations: 1. Discontinue levofloxacin due to the fact that it lowers seizure threshold 2. Start Unasyn; this will cover possible aspiration 3. Start azithromycin to cover atypicals 4. F/U cultures Current Visit: Yes Qualifiers: Pneumonia type: due to unspecified organism Laterality: right Lung location: middle lobe of lung Qualified Code(s): J18.1 - Lobar pneumonia, unspecified organism (2) Thrombocytopenia Status: Acute Assessment and plan: Not sure because of this, maybe alcoholism. Continue to monitor. Current Visit: Yes (3) Abnormal liver function test Status: Acute Assessment and plan: AST higher than ALT; based on history from this is from alcoholism. Current Visit: Yes (4) Acute respiratory failure with hypoxia Status: Acute Assessment and plan: Patient's hypoxemia is out of keeping with the relatively small infiltrate on lung imaging. I think there may be be another cause for this; his BNP was quite high and EF is only 10% so likely pulmonary edema from CHF is the cause. Current Visit: Yes Infectious Disease - PN: Subj Interval history: Pt having visual and auditory halucinations today, and very tremulous. No fever. Denies significant cough. Infectious Disease Exam (PN) - Constitutional Vitals: Temp Pulse Resp BP Pulse Ox 97.6 F 130 H 27 H 127/93 94 L 12/23/16 07:00 12/23/16 10:00 12/23/16 10:00 12/23/16 10:00 12/23/16 10:00 General appearance: mild distress (Patient is sitting up talking and is relatively comfortable at present), under weight Exam: GEN: very tremulous, drowsy HEENT: no oral exudates RS: no added sounds CVS: normal S1 and S2, no murmurs ABD: soft, non-tender EXTREMITIES: no edema Results - Labs CBC & BMP: 12/22/16 00:10 12/22/16 00:10 Lab Results: I have reviewed the past 24 hour labs - Diagnostic Findings Procedure: Chest x-ray: report reviewed by me
[2016-12-23] MEDS: LORazepam 2 MG/1 ML VIAL IV PRN ×3 (12:45→22:38)
[2016-12-23] MEDS: ACETAMINOPHEN 325 MG TABLET PO PRN (12:45)
[2016-12-23] MEDS ORDERED: DIAZEPAM 10 MG/2 ML SYRINGE IV PRN (20:18)
[2016-12-23] MEDS: DIAZEPAM 10 MG/2 ML SYRINGE IV PRN ×2 (20:28→22:04)
[2016-12-24] MEDS: DIAZEPAM 10 MG/2 ML SYRINGE IV PRN (00:24)
[2016-12-24] MEDS: chlordiazePOXIDE 25 MG CAPSULE PO SCH ×4 (02:33→20:13)
[2016-12-24] MEDS: DEXTROSE 50% 25 GM/50 ML SYRINGE IV PRN (02:44)
[2016-12-24 06:33] LABS: Calcium 8.4 MG/DL (8.5-10.1); Osmolality,Calculated 275.1 MOS/KG (273-304); Potassium 3.9 MMOL/L (3.5-5.1)
[2016-12-24] MEDS: AMPICILLIN/SULBACTAM 1,500 MG in SODIUM CHLORIDE 0.9% 100 ML IV SCH ×3 (07:26→18:03)
--- NOTE | 2016-12-24 07:45 | Pulmonology Progress Note ---
Pulmonary - PN: Subj Interval history: Patient is a 41-year-old black man that comes in with shortness of breath and a right middle lobe pneumonia. He also has cardiomegaly and it looks like he has an ejection fraction of 10%. He says he will drink up to a sixpack of beer a day and sometimes will drink of whiskey with this. 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 Yesterday he had considerable more confusion and had a very restless night. He looks like he is hallucinating and having DTs. He did get IV Valium and Ativan. He seems to be resting now. His heart rate and blood pressure have been increased. He does not seem to be having any breathing trouble. Exam (Progress Note) - Constitutional Vitals: Period Temp Pulse Resp BP Sys/Zayas Pulse Ox Last 24 Hr 97.9 F-98.5 F 106-130 12-38 104-144/75-122 94-100 Exam: General appearance: mild distress (Patient has been extremely restless and is now sedated. He is not having any respiratory distress.) - Head Head exam: Present: normal inspection, normocephalic - Eye Eye exam: Present: EOMI. Absent: scleral icterus Pupils: Present: RUCHI - ENT ENT exam: Present: other (He does have dental caries and poor dentition) - Neck Neck exam: Absent: lymphadenopathy, thyromegaly - Respiratory Respiratory exam: Present: He has good breath sounds bilaterally with some mild crackles bilaterally. He is not wheezing now. - Cardiovascular Cardiovascular exam: Present: regular rate and rhythm, tachycardia. His blood pressure has been up also. Absent: gallop, systolic murmur - GI/Abdominal GI/Abdominal exam: Present: normal bowel sounds, soft. Absent: organomegaly, tenderness - Extremities Exam Extremities exam: Absent: calf tenderness, edema, he has no signs of phlebitis - Neurological Exam Neurological exam: Present: alert, CN II-XII intact - Psychiatric Psychiatric exam: Present: He is confused now. - Skin Skin exam: Present: warm, dry. Absent: rash Results - Labs CBC & BMP: 12/22/16 00:10 12/24/16 04:19 Assessment and Plan (1) Abnormal liver function test Status: Acute Assessment and plan: Patient's bilirubin was 2.4 and he does have a history of drinking alcohol regularly. Now it looks like he is having the DTs. Current Visit: Yes (2) Acute respiratory failure with hypoxia Status: Acute Assessment and plan: The patient has a right middle lobe pneumonia and cardiomegaly and comes in with shortness of breath and hypoxemia. His infiltrate is better. He looks like he has a severe cardiomyopathy causing most of his problems. He seems to be breathing okay at present. Current Visit: Yes (3) Pneumonia Status: Acute Assessment and plan: The patient has a right middle lobe pneumonia. I doubt this is TB. It certainly could be anaerobic infection. Current Visit: Yes Qualifiers: Pneumonia type: due to unspecified organism Laterality: right Lung location: middle lobe of lung Qualified Code(s): J18.1 - Lobar pneumonia, unspecified organism (4) Seizure Status: Acute Assessment and plan: Patient apparently had a seizure earlier. He has not had any obvious seizures but he is having the DTs now. 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 Will start low-dose Coreg and cardiology will need to evaluate. Current Visit: Yes
[2016-12-24] MEDS: ENOXAPARIN 40 MG/0.4 ML SYRINGE SUBCUT SCH (08:22)
[2016-12-24] MEDS: CARVEDILOL 6.25 MG TABLET PO SCH ×2 (08:22→20:13)
[2016-12-24] MEDS: AZITHROMYCIN 250 MG TABLET PO SCH (08:22)
[2016-12-24] MEDS: NICOTINE 14 MG/24 HR PATCH TRANSDERM SCH (08:23)
[2016-12-24] MEDS: LORazepam 2 MG/1 ML VIAL IV PRN ×3 (08:23→21:20)
--- NOTE | 2016-12-24 09:00 | Hospitalist Progress Note ---
Assessment and Plan (1) Pneumonia Status: Acute Assessment and plan: Impression: 1. Right-sided pneumonia 2. Acute systolic congestive heart failure, etiology not known 3. Seizure 4. Possible chronic alcoholism 5. Possible psychiatric diagnosis Plan: Continue current antibiotics. Librium is on board for alcohol withdrawal. May need to add an antipsychotic if hallucinations and agitation persist. This note was completed using [employer] voice recognition software. There may be geography faculty member errors as a result. Current Visit: Yes Qualifiers: Pneumonia type: due to unspecified organism Laterality: right Lung location: middle lobe of lung Qualified Code(s): J18.1 - Lobar pneumonia, unspecified organism Hospitalist: Subjective Interval history: Follow-up right-sided pneumonia, probable alcoholism with possible withdrawal, and agitation. The patient apparently had some hallucinations and agitated behavior yesterday evening. I do not think it safe for him to move to the floor because of that. Infectious disease has revised his antibiotics. Tuberculosis does not seem likely, and the isolation has been discontinued. The question has been raised as to whether or not the patient has a psychiatric diagnosis. We may need to get that information from the family if they visit today. Exam - Constitutional Vitals: Period Temp Pulse Resp BP Sys/Zayas Pulse Ox Last 24 Hr 97.9 F-98.5 F 106-130 17-38 104-144/75-122 94-100 Vital signs are noted above. Heart is regular with distant tones and no murmur. He is moving air fairly well. Abdomen is soft with positive bowel sounds. He is awake and conversant. Results - Labs CBC & BMP: 12/22/16 00:10 12/24/16 04:19 Lab Results: I have reviewed the past 24 hour labs
--- NOTE | 2016-12-24 14:35 | Event Note ---
I have been informed that the patient "does not meet ICU criteria." The patient 's female template storage clerk is in the room. She reports that he has a long history of significant alcohol use. There is no prior history of any psychiatric diagnosis. I think his hallucinations and agitation are from alcohol withdrawal. Will continue him on [id number] benzodiazepines. When family members do not stay with the patient, he will likely require one-on-one assistance for safety
--- NOTE | 2016-12-24 15:08 | Infectious Disease Progress ---
Assessment and Plan (1) Pneumonia Status: Acute Assessment and plan: Patient has pneumonia involving right lower lung - CAP vs aspiration. Recommendations: Continue Unasyn and azithromycin. Current Visit: Yes Qualifiers: Pneumonia type: due to unspecified organism Laterality: right Lung location: middle lobe of lung Qualified Code(s): J18.1 - Lobar pneumonia, unspecified organism (2) Thrombocytopenia Status: Acute Assessment and plan: 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 Current Visit: Yes (3) Abnormal liver function test Status: Acute Assessment and plan: AST higher than ALT; based on history from this is probably from alcoholism with liver cirrhosis. Current Visit: Yes (4) Acute respiratory failure with hypoxia Status: Acute Assessment and plan: Likely a CHF from some cardiomyopathy. Current Visit: Yes Infectious Disease - PN: Subj Interval history: Patient remains confused to date, tremulous, BP was high this morning but now it is borderline low. Difficulty getting his O2 saturations but is not any respiratory distress. He has been afebrile. Infectious Disease Exam (PN) - Constitutional Vitals: Temp Pulse Resp BP Pulse Ox 97.2 F L 100 H 14 95/81 96 12/24/16 08:00 12/24/16 11:00 12/24/16 11:00 12/24/16 11:00 12/24/16 11:00 General appearance: mild distress (Patient is sitting up talking and is relatively comfortable at present), under weight Exam: GEN: tremulous, confused HEENT: Pale moist mucosa RS: Sounded clear CVS: normal S1 and S2, no murmurs ABD: soft, non-tender EXTREMITIES: no edema Results - Labs CBC & BMP: 12/22/16 00:10 12/24/16 04:19 Lab Results: I have reviewed the past 24 hour labs (Blood cultures negative to date)
[2016-12-25] MEDS: AMPICILLIN/SULBACTAM 1,500 MG in SODIUM CHLORIDE 0.9% 100 ML IV SCH ×4 (01:00→17:35)
--- NOTE | 2016-12-25 07:24 | Pulmonology Progress Note ---
Pulmonary - PN: Subj Interval history: Patient is a 41-year-old black man that comes in with shortness of breath and a right middle lobe pneumonia. He also has cardiomegaly and it looks like he has an ejection fraction of 10%. He says he will drink up to a sixpack of beer a day and sometimes will drink of whiskey with this. 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 He was having considerable DTs yesterday but he looks much better this morning. He is much more comfortable and calmer. He responds okay and is resting better. His heart rate and blood pressure better. He is not having any respiratory distress now. He will probably move to a regular room today. I will check a chest x-ray tomorrow. Exam (Progress Note) - Constitutional Vitals: Period Temp Pulse Resp BP Sys/Zayas Pulse Ox Last 24 Hr 97.2 F-98.1 F 91-114 11-39 94-124/73-101 96-100 Exam: General appearance: no distress (Patient looks much more comfortable and is in no distress now.) - Head Head exam: Present: normal inspection, normocephalic - Eye Eye exam: Present: EOMI. Absent: scleral icterus Pupils: Present: RUCHI - ENT ENT exam: Present: other (He does have dental caries and poor dentition) - Neck Neck exam: Absent: lymphadenopathy, thyromegaly - Respiratory Respiratory exam: Present: He has good breath sounds bilaterally with some mild crackles bilaterally. He is not wheezing now. - Cardiovascular Cardiovascular exam: Present: regular rate and rhythm, he has a laterally displaced PMI but his heart rate is much better now. - GI/Abdominal GI/Abdominal exam: Present: normal bowel sounds, soft. Absent: organomegaly, tenderness - Extremities Exam Extremities exam: Absent: calf tenderness, edema, he has no signs of phlebitis - Neurological Exam Neurological exam: Present: alert, CN II-XII intact - Psychiatric Psychiatric exam: Present: He is still very sleepy but is resting better. - Skin Skin exam: Present: warm, dry. Absent: rash Results - Labs CBC & BMP: 12/22/16 00:10 12/24/16 04:19 Assessment and Plan (1) Abnormal liver function test Status: Acute Assessment and plan: Patient's bilirubin was 2.4 and he does have a history of drinking alcohol regularly. He has had some DTs but is getting better now. Current Visit: Yes (2) Acute respiratory failure with hypoxia Status: Acute Assessment and plan: The patient has a right middle lobe pneumonia and cardiomegaly and comes in with shortness of breath and hypoxemia. His infiltrate is better. He looks like he has a severe cardiomyopathy causing most of his problems. He is not having any respiratory difficulties at present. Current Visit: Yes (3) Pneumonia Status: Acute Assessment and plan: The patient has a right middle lobe pneumonia. I doubt this is TB. It certainly could be anaerobic infection. Clinically he is doing better and will check a chest x-ray tomorrow. Current Visit: Yes Qualifiers: Pneumonia type: due to unspecified organism Laterality: right Lung location: middle lobe of lung Qualified Code(s): J18.1 - Lobar pneumonia, unspecified organism (4) Seizure Status: Acute Assessment and plan: Patient apparently had a seizure earlier. He has not had any obvious seizures but he is having the DTs now. He apparently slept much better last night. 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 Will start low-dose Coreg and cardiology will need to evaluate. His heart rate and blood pressure are better today. Current Visit: Yes
--- NOTE | 2016-12-25 08:25 | Physician Query Form ---
CLICK EDIT DOCUMENT TO SELECT QUERY ANSWER --> OK --> SIGN Angela Guajardo RN Clinical Operating Room Surgical Technician W) [phone] (f) [phone] [email or web address] PROVIDERS: Make your selection(s) from the choices in EACH section by typing an "x" and enter comments in the comment section. Please use your independent medical judgment in providing your response. This request does not imply that any particular answer is desired or expected. CLINICAL INDICATORS: (Providers should not edit this section) Height: 6ft 2in Weight: 118 lbs Filter Worker BMI: 15.1 Nutritional supplements: Ensure Enlive with all meals Pipe Organ Installer notes: Loss of body fat and muscle mass. Meets criteria for malnutrition. Based on the above, which following choice most accurately represents the patient's nutritional status? ( ) Malnutrition ( ) mild ( ) moderate ( ) severe ( x) Protein calorie malnutrition ( ) mild ( ) moderate ( x) severe ( ) Emaciation due to malnutrition ( ) Nutritional marasmus ( ) Cachexia ( ) Underweight ( ) No nutritional deficiency ( ) Other, please specify: ( ) Clinically unable to determine Mild Malnutrition (BMI < 18.5, % Normal Body Weight 85-95%) Moderate Malnutrition (BMI < 17, % Normal Body Weight 75-85%) Severe Malnutrition (BMI < 16, % Normal Body Weight < 75%) Source: Lola COMMENTS: PLEASE ALSO DOCUMENT RESPONSE IN PROGRESS NOTES AND/OR DISCHARGE SUMMARY Use of terms such as suspected, likely, or probable (associated with a specific diagnosis that is being evaluated, monitored, or treated as if it exists) are acceptable and can be restated in the discharge summary if not ruled out. MTDD
[2016-12-25] MEDS: chlordiazePOXIDE 25 MG CAPSULE PO SCH ×4 (09:25→20:37)
[2016-12-25] MEDS: CARVEDILOL 6.25 MG TABLET PO SCH ×2 (09:26→20:38)
[2016-12-25] MEDS: NICOTINE 14 MG/24 HR PATCH TRANSDERM SCH (09:27)
[2016-12-25] MEDS: AZITHROMYCIN 250 MG TABLET PO SCH (09:27)
[2016-12-25] MEDS: ENOXAPARIN 40 MG/0.4 ML SYRINGE SUBCUT SCH (09:31)
--- NOTE | 2016-12-25 10:08 | Hospitalist Progress Note ---
Assessment and Plan (1) Pneumonia Status: Acute Assessment and plan: Impression: 1. Right-sided pneumonia, improving clinically 2. Acute systolic congestive heart failure, probably alcoholic 3. Seizure, likely related to alcohol withdrawal 4. Chronic alcoholism with delirium tremens; withdrawal symptoms appear to be improving Plan: Continue current antibiotics and sedatives. Transfer to floor. Repeat chest x- ray in the morning. This note was completed using [employer] voice recognition software. There may be occupational therapy teacher errors as a result. Current Visit: Yes Qualifiers: Pneumonia type: due to unspecified organism Laterality: right Lung location: middle lobe of lung Qualified Code(s): J18.1 - Lobar pneumonia, unspecified organism Hospitalist: Subjective Interval history: Follow-up pneumonia, alcohol withdrawal, and probable alcoholic cardiomyopathy with chronic systolic congestive heart failure. The patient's mental status appears to have improved. Staff reports that he slept all night after one injection of Ativan yesterday afternoon. He says that he is hungry this morning. He does not appear to be actively hallucinating. He continues to oxygenate well with supplemental nasal oxygen. Exam - Constitutional Vitals: Period Temp Pulse Resp BP Sys/Zayas Pulse Ox Last 24 Hr 97.2 F-98.1 F 91-114 11-39 94-120/73-97 96-100 Vital signs are noted above. Heart is regular with a soft systolic murmur. I do not hear a gallop. He has a few rhonchi in the chest, but the lung dos santos are otherwise clear. He is awake and conversant. Speech is clearer than yesterday. Results - Labs CBC & BMP: 12/22/16 00:10 12/24/16 04:19 Lab Results: I have reviewed the past 24 hour labs
--- NOTE | 2016-12-25 12:44 | Infectious Disease Progress ---
Assessment and Plan (1) Pneumonia Status: Acute Assessment and plan: Patient has pneumonia involving right lower lung - CAP vs aspiration. Clinically seems to be improving. Recommendations: Continue Unasyn and azithromycin. Current Visit: Yes Qualifiers: Pneumonia type: due to unspecified organism Laterality: right Lung location: middle lobe of lung Qualified Code(s): J18.1 - Lobar pneumonia, unspecified organism (2) Thrombocytopenia Status: Acute Assessment and plan: 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 Current Visit: Yes (3) Abnormal liver function test Status: Acute Assessment and plan: AST higher than ALT; based on history from this is probably from alcoholism with liver cirrhosis. Current Visit: Yes (4) Acute respiratory failure with hypoxia Status: Acute Assessment and plan: Likely a CHF from cardiomyopathy. Current Visit: Yes Infectious Disease - PN: Subj Interval history: Patient now out of ICU. He was more lucid today less agitated less tremulous. However by the time I saw him he was sedated having recently gotten Librium. No fever. Infectious Disease Exam (PN) - Constitutional Vitals: Temp Pulse Resp BP Pulse Ox 98.8 F 89 18 100/84 100 12/25/16 10:00 12/25/16 10:00 12/25/16 10:00 12/25/16 10:00 12/25/16 10:00 General appearance: mild distress (Patient is sitting up talking and is relatively comfortable at present), under weight Exam: GEN: Sedated but arousable HEENT: Pale moist mucosa, no oral exudates RS: No added sounds CVS: normal S1 and S2, no murmurs ABD: soft, non-tender EXTREMITIES: no edema Results - Labs CBC & BMP: 12/22/16 00:10 12/24/16 04:19 Lab Results: I have reviewed the past 24 hour labs
[2016-12-25 14:21] LABS: Mycoplasma pneumoniae Ab, IgG 3.59 index (<=0.90); Mycoplasma pneumoniae Ab, IgM 0.72 index (<=0.90)
[2016-12-25] MEDS: ACETAMINOPHEN 325 MG TABLET PO PRN (20:38)
[2016-12-26] MEDS: AMPICILLIN/SULBACTAM 1,500 MG in SODIUM CHLORIDE 0.9% 100 ML IV SCH ×4 (01:10→18:05)
[2016-12-26 04:23] LABS: Calcium 7.8 MG/DL (8.5-10.1); Osmolality,Calculated 276.7 MOS/KG (273-304); Potassium 3.2 MMOL/L (3.5-5.1)
[2016-12-26] MEDS: AZITHROMYCIN 250 MG TABLET PO SCH (09:15)
[2016-12-26] MEDS: CARVEDILOL 6.25 MG TABLET PO SCH ×2 (09:15→21:52)
[2016-12-26] MEDS: chlordiazePOXIDE 25 MG CAPSULE PO SCH ×4 (09:15→21:52)
[2016-12-26] MEDS: NICOTINE 14 MG/24 HR PATCH TRANSDERM SCH (09:16)
[2016-12-26] MEDS: ENOXAPARIN 40 MG/0.4 ML SYRINGE SUBCUT SCH (09:16)
--- NOTE | 2016-12-26 11:21 | Pulmonology Progress Note ---
Pulmonary - PN: Subj Interval history: Patient is a 41-year-old black man that comes in with shortness of breath and a right middle lobe pneumonia. He also has cardiomegaly and it looks like he has an ejection fraction of 10%. He says he will drink up to a sixpack of beer a day and sometimes will drink of whiskey with this. 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 He was having considerable DTs yesterday but he looks much better this morning. He is much more comfortable and calmer. He responds okay and is resting better. His heart rate and blood pressure better. He is not having any respiratory distress now. He apparently had a reasonable night and did get some rest. He looks more alert today and calmer. He is starting to eat a little better. He says is not that short of breath now. Overall he looks like he is improving. Exam (Progress Note) - Constitutional Vitals: Period Temp Pulse Resp BP Sys/Zayas Pulse Ox Last 24 Hr 97.4 F-98.8 F 89-101 18-20 96-115/61-86 95-100 Exam: General appearance: no distress (Patient looks comfortable and reasonably alert now.) - Head Head exam: Present: normal inspection, normocephalic - Eye Eye exam: Present: EOMI. Absent: scleral icterus Pupils: Present: RUCHI - ENT ENT exam: Present: other (He does have dental caries and poor dentition) - Neck Neck exam: Absent: lymphadenopathy, thyromegaly - Respiratory Respiratory exam: Present: He has good breath sounds bilaterally and his lungs sound reasonably clear at present. - Cardiovascular Cardiovascular exam: Present: regular rate and rhythm, he has a laterally displaced PMI but his heart rate is much better now. - GI/Abdominal GI/Abdominal exam: Present: normal bowel sounds, soft. Absent: organomegaly, tenderness - Extremities Exam Extremities exam: Absent: calf tenderness, edema, he has no signs of phlebitis - Neurological Exam Neurological exam: Present: alert, CN II-XII intact - Psychiatric Psychiatric exam: Present: He is more alert today and looks comfortable. - Skin Skin exam: Present: warm, dry. Absent: rash Results - Labs CBC & BMP: 12/22/16 00:10 12/26/16 02:28 - Diagnostic Findings Procedure: Chest x-ray: image reviewed by me, report reviewed by me (Chest x- ray has improved but he still has a mild right middle lobe infiltrate.) Assessment and Plan (1) Abnormal liver function test Status: Acute Assessment and plan: Patient's bilirubin was 2.4 and he does have a history of drinking alcohol regularly. He has had some DTs but is getting better now. He definitely is getting over his withdrawal. Current Visit: Yes (2) Acute respiratory failure with hypoxia Status: Acute Assessment and plan: The patient has a right middle lobe pneumonia and cardiomegaly and comes in with shortness of breath and hypoxemia. His infiltrate is better. He looks like he has a severe cardiomyopathy causing most of his problems. He is not having any respiratory difficulties at present. He continues to do well with his breathing. Current Visit: Yes (3) Pneumonia Status: Acute Assessment and plan: The patient has a right middle lobe pneumonia. I doubt this is TB. It certainly could be anaerobic infection. Clinically he is doing better and his chest x-ray is improving. Current Visit: Yes Qualifiers: Pneumonia type: due to unspecified organism Laterality: right Lung location: middle lobe of lung Qualified Code(s): J18.1 - Lobar pneumonia, unspecified organism (4) Seizure Status: Acute Assessment and plan: Patient apparently had a seizure earlier. 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 Will start low-dose Coreg and cardiology will need to evaluate. His heart rate and blood pressure are better today. He does not have any heart failure at present. Current Visit: Yes
--- NOTE | 2016-12-26 13:03 | XRay Report ---
History: Pneumonia Date: 12/26/2016 Study: Chest x-ray AP portable Comparison exam: December 23, 2016 There is cardiomegaly. There is no mediastinal mass. The pulmonary vasculature is upper normal. There is no gross pleural effusion. There is some patchy infiltrate/edema in the right infrahilar area, unchanged. There is no new or worsening infiltrate. Osseous structures are unchanged. Impression: Continued right infrahilar pneumonia, grossly similar PROCEDURE INTERPRETED AT [facility] DEPARTMENT OF RADIOLOGY Final Report Signed by: Dr. Rosey lBanco
--- NOTE | 2016-12-26 16:28 | Hospitalist Progress Note ---
Hospitalist: Subjective Interval history: 41-year-old -[place] male who was admitted to ICU for pneumonia and respiratory failure, he is breathing better today. Exam - Constitutional Vitals: Period Temp Pulse Resp BP Sys/Zayas Pulse Ox Last 24 Hr 97.4 F-98 F 92-101 18-24 94-115/61-86 95-100 Exam: General: No Acute Distress HEENT: Normocephalic, atraumatic, Extra ocular movements intact Neck: Supple, No JVD Chest: Clear to auscultation B/L CV: S1 + S2 audible without murmur, gallop or rub Abd: soft, NT, Non-distended, BS + Ext: No edema Skin: No purpura, bruising or rash Rheumatologic: No Joint deformities Neurologic: Strength 5/5 all extremities, no gross sensory deficits Results - Labs CBC & BMP: 12/22/16 00:10 12/26/16 02:28 - Impressions Assessment and Plan: RML bacterial pneumonia Status: Acute Assessment and plan: Continue Unasyn and azithromycin Current Visit: Yes Thrombocytopenia, mild Status: Acute Assessment and plan: 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 Current Visit: Yes Chronic systolic congestive heart failure/cardiomyopathy Status: Acute Assessment and plan: His EF is 10%, this likely alcohol induced cardiac Current Visit: Yes Abnormal liver function test/ETOH abuse Status: Acute Assessment and plan: AST higher than ALT, due to alcohol abuse Current Visit: Yes Acute hypoxemic respiratory failure due to pneumonia Status: Acute Assessment and plan: Improving Current Visit: Yes
[2016-12-27] MEDS: AMPICILLIN/SULBACTAM 1,500 MG in SODIUM CHLORIDE 0.9% 100 ML IV SCH ×5 (01:58→23:56)
[2016-12-27] MEDS: NICOTINE 14 MG/24 HR PATCH TRANSDERM SCH (09:14)
[2016-12-27] MEDS: ENOXAPARIN 40 MG/0.4 ML SYRINGE SUBCUT SCH (09:15)
[2016-12-27] MEDS: AZITHROMYCIN 250 MG TABLET PO SCH (09:15)
[2016-12-27] MEDS: CARVEDILOL 6.25 MG TABLET PO SCH ×2 (09:15→21:54)
[2016-12-27] MEDS: chlordiazePOXIDE 25 MG CAPSULE PO SCH (09:18)
--- NOTE | 2016-12-27 10:45 | Pulmonology Progress Note ---
Pulmonary - PN: Subj Interval history: Patient is a 41-year-old black man that comes in with shortness of breath and a right middle lobe pneumonia. He also has cardiomegaly and it looks like he has an ejection fraction of 10%. He says he will drink up to a sixpack of beer a day and sometimes will drink of whiskey with this. 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 He was having considerable DTs yesterday but he looks much better this morning. He is much more comfortable and calmer. He responds okay and is resting better. His heart rate and blood pressure better. He is not having any respiratory distress now. He is starting to eat a little bit but he is very weak. He is still sleepy and will make his Librium as needed. Otherwise he seems to be doing a little better. Exam (Progress Note) - Constitutional Vitals: Period Temp Pulse Resp BP Sys/Zayas Pulse Ox Last 24 Hr 96.8 F-98.0 F 82-98 16-24 94-115/72-87 94-100 Exam: General appearance: no distress (Patient looks comfortable and does not appear to be in any distress now. ) - Head Head exam: Present: normal inspection, normocephalic - Eye Eye exam: Present: EOMI. Absent: scleral icterus Pupils: Present: RUCHI - ENT ENT exam: Present: other (He does have dental caries and poor dentition) - Neck Neck exam: Absent: lymphadenopathy, thyromegaly - Respiratory Respiratory exam: Present: He has good breath sounds bilaterally and his lungs sound reasonably clear at present. - Cardiovascular Cardiovascular exam: Present: regular rate and rhythm, he has a laterally displaced PMI but his heart rate is much better now. - GI/Abdominal GI/Abdominal exam: Present: normal bowel sounds, soft. Absent: organomegaly, tenderness - Extremities Exam Extremities exam: Absent: calf tenderness, edema, he has no signs of phlebitis - Neurological Exam Neurological exam: Present: alert, CN II-XII intact. He is moving his extremities but is very weak. - Psychiatric Psychiatric exam: Present: He is a little sleepy today. - Skin Skin exam: Present: warm, dry. Absent: rash Results - Labs CBC & BMP: 12/22/16 00:10 12/26/16 02:28 Assessment and Plan (1) Abnormal liver function test Status: Acute Assessment and plan: Patient's bilirubin was 2.4 and he does have a history of drinking alcohol regularly. He has had some DTs but is getting better now. He definitely is getting over his withdrawal. Will cut back on his Librium today. Current Visit: Yes (2) Acute respiratory failure with hypoxia Status: Acute Assessment and plan: The patient has a right middle lobe pneumonia and cardiomegaly and comes in with shortness of breath and hypoxemia. His infiltrate is better. He looks like he has a severe cardiomyopathy causing most of his problems. He is not having any respiratory difficulties at present. He continues to do well with his breathing. Current Visit: Yes (3) Pneumonia Status: Acute Assessment and plan: The patient has a right middle lobe pneumonia. I doubt this is TB. It certainly could be anaerobic infection. Clinically he is doing better and his chest x-ray is improving. He continues to do well with his breathing. Current Visit: Yes Qualifiers: Pneumonia type: due to unspecified organism Laterality: right Lung location: middle lobe of lung Qualified Code(s): J18.1 - Lobar pneumonia, unspecified organism (4) Seizure Status: Acute Assessment and plan: Patient apparently had a seizure earlier. 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 Will start low-dose Coreg and cardiology will need to evaluate. His heart rate and blood pressure are better today. He does not have any heart failure at present. He seems to be relatively stable. Current Visit: Yes
--- NOTE | 2016-12-27 13:37 | Hospitalist Progress Note ---
Hospitalist: Subjective Interval history: Patient resting comfortably today. He was admitted for pneumonia. Exam - Constitutional Vitals: Period Temp Pulse Resp BP Sys/Zayas Pulse Ox Last 24 Hr 96.8 F-98.0 F 82-98 16-20 95-115/75-87 94-100 Exam: General: No Acute Distress HEENT: Normocephalic, atraumatic, Extra ocular movements intact Neck: Supple, No JVD Chest: Clear to auscultation B/L CV: S1 + S2 audible without murmur, gallop or rub Abd: soft, NT, Non-distended, BS + Ext: No edema Skin: No purpura, bruising or rash Rheumatologic: No Joint deformities Neurologic: Strength 5/5 all extremities, no gross sensory deficits Results - Labs CBC & BMP: 12/22/16 00:10 12/26/16 02:28 - Impressions Assessment and Plan: RML bacterial pneumonia Status: Acute Assessment and plan: Continue Unasyn Current Visit: Yes Thrombocytopenia, mild Status: Acute Assessment and plan: 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
[2016-12-28] MEDS: AMPICILLIN/SULBACTAM 1,500 MG in SODIUM CHLORIDE 0.9% 100 ML IV SCH ×2 (06:12→11:22)
[2016-12-28] MEDS ORDERED: PNEUMOCOCCAL VACCINE (23 VALENT) 0.5 ML VIAL IM ONE (08:59)
[2016-12-28] MEDS: NICOTINE 14 MG/24 HR PATCH TRANSDERM SCH (09:54)
[2016-12-28] MEDS: CARVEDILOL 6.25 MG TABLET PO SCH ×2 (09:55→21:34)
[2016-12-28] MEDS: ENOXAPARIN 40 MG/0.4 ML SYRINGE SUBCUT SCH (09:57)
[2016-12-28 13:06] LABS: TB Ag minue Nil Result -0.01 IU/mL
--- NOTE | 2016-12-28 13:14 | Pulmonology Progress Note ---
Pulmonary - PN: Subj Interval history: Patient is a 41-year-old black man that comes in with shortness of breath and a right middle lobe pneumonia. He also has cardiomegaly and it looks like he has an ejection fraction of 10%. He says he will drink up to a sixpack of beer a day and sometimes will drink of whiskey with this. 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 He was having considerable DTs but this is cleared up fairly well. He says he is feeling better and is eating more today. He is more alert and looks comfortable. He says is not having shortness of breath. He is very weak. Exam (Progress Note) - Constitutional Vitals: Period Temp Pulse Resp BP Sys/Zayas Pulse Ox Last 24 Hr 96.1 F-98.6 F 72-102 16-22 103-110/54-79 90-100 Exam: General appearance: no distress (Patient looks more alert and is sitting up eating breakfast. ) - Head Head exam: Present: normal inspection, normocephalic - Eye Eye exam: Present: EOMI. Absent: scleral icterus Pupils: Present: RUCHI - ENT ENT exam: Present: other (He does have dental caries and poor dentition) - Neck Neck exam: Absent: lymphadenopathy, thyromegaly - Respiratory Respiratory exam: Present: He has good breath sounds bilaterally and his lungs sound reasonably clear at present. - Cardiovascular Cardiovascular exam: Present: regular rate and rhythm, he has a laterally displaced PMI but his heart rate is much better now. - GI/Abdominal GI/Abdominal exam: Present: normal bowel sounds, soft. Absent: organomegaly, tenderness - Extremities Exam Extremities exam: Absent: calf tenderness, edema, he has no signs of phlebitis - Neurological Exam Neurological exam: Present: alert, CN II-XII intact. He is moving his extremities but is very weak. He has not done much activity yet. - Psychiatric Psychiatric exam: Present: He is much more alert today. - Skin Skin exam: Present: warm, dry. Absent: rash Results - Labs CBC & BMP: 12/22/16 00:10 12/26/16 02:28 Assessment and Plan (1) Abnormal liver function test Status: Acute Assessment and plan: Patient's bilirubin was 2.4 and he does have a history of drinking alcohol regularly. He has had some DTs but is getting better now. He is more alert now and is calmer. He seems to be doing a little better. Current Visit: Yes (2) Acute respiratory failure with hypoxia Status: Acute Assessment and plan: The patient has a right middle lobe pneumonia and cardiomegaly and comes in with shortness of breath and hypoxemia. His infiltrate is better. He looks like he has a severe cardiomyopathy causing most of his problems. He is not having any respiratory difficulties at present. He continues to do well with his breathing. Current Visit: Yes (3) Pneumonia Status: Acute Assessment and plan: The patient has a right middle lobe pneumonia. Clinically he is doing much better. Current Visit: Yes Qualifiers: Pneumonia type: due to unspecified organism Laterality: right Lung location: middle lobe of lung Qualified Code(s): J18.1 - Lobar pneumonia, unspecified organism (4) Seizure Status: Acute Assessment and plan: Patient apparently had a seizure earlier. 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 Will start low-dose Coreg and cardiology will need to evaluate. His heart rate and blood pressure are better today. He does not have any heart failure at present. He looks like he feels better today. Current Visit: Yes
[2016-12-28] MEDS: chlordiazePOXIDE 25 MG CAPSULE PO PRN ×2 (13:38→21:34)
--- NOTE | 2016-12-28 14:55 | Infectious Disease Progress ---
Assessment and Plan (1) Pneumonia Status: Acute Assessment and plan: Patient has pneumonia involving right lower lung - histoplasmosis given urine histoplasma antigen positive. Will consider this mild to moderate infection rather than severe and therefore he would not require IV amphotericin B. Recommendations: 1. Discontinue Unasyn and azithromycin 2. Start on itraconazole 200 mg p.o. 3 times a day 3 days, then 200 mg p.o. twice a day for at least one month. May need to extend longer depending on how he does. Discussed with Dr. 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 Current Visit: Yes (3) Abnormal liver function test Status: Acute Assessment and plan: AST higher than ALT; based on history from this is probably from alcoholism with liver cirrhosis. Current Visit: Yes (4) Acute respiratory failure with hypoxia Status: Acute Assessment and plan: Likely a CHF from cardiomyopathy. Current Visit: Yes Infectious Disease - PN: Subj Interval history: Patient doing fairly okay. No longer confused but still requiring Librium. No fever, denies cough and shortness of breath. Infectious Disease Exam (PN) - Constitutional Vitals: Temp Pulse Resp BP Pulse Ox 98.3 F 72 20 106/54 99 12/28/16 11:40 12/28/16 11:40 12/28/16 11:40 12/28/16 11:40 12/28/16 11:40 General appearance: mild distress (Patient is sitting up talking and is relatively comfortable at present), under weight Exam: GEN: Sedated but arousable HEENT: Pale moist mucosa, no oral exudates RS: No added sounds CVS: normal S1 and S2, no murmurs ABD: soft, non-tender EXTREMITIES: no edema Results - Labs CBC & BMP: 12/22/16 00:10 12/26/16 02:28 Lab Results: I have reviewed the past 24 hour labs (Urine histoplasma antigen positive)
[2016-12-28] MEDS: ITRACONAZOLE 100 MG CAPSULE PO SCH ×2 (16:05→21:35)
--- NOTE | 2016-12-28 16:21 | Hospitalist Progress Note ---
Hospitalist: Subjective Interval history: Patient is awake and comfortable Exam - Constitutional Vitals: Period Temp Pulse Resp BP Sys/Zayas Pulse Ox Last 24 Hr 96.9 F-98.6 F 72-102 16-22 103-110/54-79 90-100 Exam: General: No Acute Distress HEENT: Normocephalic, atraumatic, Extra ocular movements intact Neck: Supple, No JVD Chest: Clear to auscultation B/L CV: S1 + S2 audible without murmur, gallop or rub Abd: soft, NT, Non-distended, BS + Ext: No edema Skin: No purpura, bruising or rash Rheumatologic: No Joint deformities Neurologic: Strength 5/5 all extremities, no gross sensory deficits Results - Labs CBC & BMP: 12/22/16 00:10 12/26/16 02:28 - Impressions Assessment and Plan: RML bacterial pneumonia/histoplasmosis Status: Acute Assessment and plan: Continue itraconazole Current Visit: Yes Thrombocytopenia, mild Status: Acute Assessment and plan: 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
[2016-12-29 07:24] LABS: Basophils # 0.1 10*3/uL (0.0-0.2); Basophils % 0.8 % (0.0-0.8); Eosinophils # 0.1 10*3/uL (0.0-0.87); Hematocrit 38.1 VOL% (42.0-52.0); Hemoglobin 13.1 GM/DL (14.0-18.0); Immature Granulocytes % 0.6 %; Immature Granulocytes Absolute 0.04 #; Lymphocytes # 1.7 10*3/uL (1.4-4.0); Lymphocytes % 22.7 % (21.2-54.2); Mean Corpuscular HGB Conc 34.4 GM/DL (32-36); Mean Corpuscular Hemoglobin 34 PG (27-34); Mean Corpuscular Volume 97.4 FL (87-102); Monocytes # 0.6 10*3/uL (0.11-0.8); Monocytes % 8.7 % (1.7-12.7); Neutrophils # 4.8 10*3/uL (1.4-7.4); Neutrophils % 66.2 % (38.7-73.9); Platelet Count 166 T/CUMM (130-400); Red Blood Count 3.91 MC/CUMM (3.8-5.5); Red Cell Distribution Width 12.8 % (9.3-17.3); White Blood Count 7.3 T/CUMM (4-12)
[2016-12-29 07:59] LABS: Calcium 8.1 MG/DL (8.5-10.1); Osmolality,Calculated 273.8 MOS/KG (273-304)
[2016-12-29] MEDS: ITRACONAZOLE 100 MG CAPSULE PO SCH ×3 (09:23→20:25)
[2016-12-29] MEDS: chlordiazePOXIDE 25 MG CAPSULE PO PRN ×2 (09:23→20:25)
[2016-12-29] MEDS: ENOXAPARIN 40 MG/0.4 ML SYRINGE SUBCUT SCH (09:23)
[2016-12-29] MEDS: CARVEDILOL 6.25 MG TABLET PO SCH ×2 (09:23→20:26)
[2016-12-29] MEDS: NICOTINE 14 MG/24 HR PATCH TRANSDERM SCH (09:23)
--- NOTE | 2016-12-29 13:48 | Pulmonology Progress Note ---
Pulmonary - PN: Subj Interval history: Patient is a 41-year-old black man that comes in with shortness of breath and a right middle lobe pneumonia. He also has cardiomegaly and it looks like he has an ejection fraction of 10%. He says he will drink up to a sixpack of beer a day and sometimes will drink of whiskey with this. 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 He was having considerable DTs but this is cleared up fairly well. He has been feeling better each day and eating a little more. He is starting to do more activity with physical therapy. He says he is not coughing much and denies shortness of breath. He is quite debilitated but does look better. Exam (Progress Note) - Constitutional Vitals: Period Temp Pulse Resp BP Sys/Zayas Pulse Ox Last 24 Hr 96.7 F-98.4 F 84-101 16-20 108-123/68-90 96-100 Exam: General appearance: no distress (Patient looks more alert and is sitting up eating breakfast. He is fairly calm and in no distress.) - Head Head exam: Present: normal inspection, normocephalic - Eye Eye exam: Present: EOMI. Absent: scleral icterus Pupils: Present: RUCHI - ENT ENT exam: Present: other (He does have dental caries and poor dentition) - Neck Neck exam: Absent: lymphadenopathy, thyromegaly - Respiratory Respiratory exam: Present: He has good breath sounds bilaterally and his lungs sound reasonably clear at present. - Cardiovascular Cardiovascular exam: Present: regular rate and rhythm, he has a laterally displaced PMI but his heart rate is much better now. - GI/Abdominal GI/Abdominal exam: Present: normal bowel sounds, soft. Absent: organomegaly, tenderness - Extremities Exam Extremities exam: Absent: calf tenderness, edema, he has no signs of phlebitis - Neurological Exam Neurological exam: Present: alert, CN II-XII intact. He is moving his extremities but is very weak. He has not done much activity yet. - Psychiatric Psychiatric exam: Present: He is much more alert today. - Skin Skin exam: Present: warm, dry. Absent: rash Results - Labs CBC & BMP: 12/29/16 05:15 12/29/16 05:15 Labs: His urine histoplasma antigen is positive. Assessment and Plan (1) Abnormal liver function test Status: Acute Assessment and plan: Patient's bilirubin was 2.4 and he does have a history of drinking alcohol regularly. He has had some DTs but is getting better now. He is more alert now and is calmer. He seems to be doing a little better. Current Visit: Yes (2) Acute respiratory failure with hypoxia Status: Acute Assessment and plan: The patient has a right middle lobe pneumonia and cardiomegaly and comes in with shortness of breath and hypoxemia. His infiltrate is better. He looks like he has a severe cardiomyopathy causing most of his problems. He is not having any respiratory difficulties at present. He is feeling better and is not short of breath now. Current Visit: Yes (3) Pneumonia Status: Acute Assessment and plan: The patient has a right middle lobe pneumonia. Clinically he is doing much better. He has positive histoplasma serology has been started on itraconazole. He seems to be relatively stable at present. Current Visit: Yes Qualifiers: Pneumonia type: due to unspecified organism Laterality: right Lung location: middle lobe of lung Qualified Code(s): J18.1 - Lobar pneumonia, unspecified organism (4) Seizure Status: Acute Assessment and plan: Patient apparently had a seizure earlier. 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 He seems to be comfortable and tolerating medicines. He has no signs of heart failure at present. Current Visit: Yes
--- NOTE | 2016-12-29 16:18 | Infectious Disease Progress ---
Assessment and Plan (1) Pneumonia Status: Acute Assessment and plan: Patient has pneumonia involving right lower lung - cause is histoplasmosis given urine histoplasma antigen positive. Recommendations: 1. Serum histoplasma serologies; titers can be followed to assess response to treatment 2. Continue itraconazole therapy as outlined in yesterday's note. Will treat for at least one month. Discussed with patient's at bedside Current Visit: Yes Qualifiers: Pneumonia type: due to unspecified organism Laterality: right Lung location: middle lobe of lung Qualified Code(s): J18.1 - Lobar pneumonia, unspecified organism (2) Thrombocytopenia Status: Acute Assessment and plan: 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 Current Visit: Yes (3) Abnormal liver function test Status: Acute Assessment and plan: AST higher than ALT; based on history from this is probably from alcoholism with liver cirrhosis. Current Visit: Yes (4) Acute respiratory failure with hypoxia Status: Acute Assessment and plan: Likely a CHF from cardiomyopathy. Current Visit: Yes Infectious Disease - PN: Subj Interval history: Patient doing okay, more alert and interactive. He denies significant cough and no sputum production. He has not had fever. Infectious Disease Exam (PN) - Constitutional Vitals: Temp Pulse Resp BP Pulse Ox 97.3 F L 93 H 20 99/68 95 12/29/16 16:00 12/29/16 16:00 12/29/16 16:00 12/29/16 16:00 12/29/16 16:00 General appearance: mild distress (Patient is sitting up talking and is relatively comfortable at present), under weight Exam: GEN: Awake and was having breakfast when I saw him this HEENT: Pale moist mucosa, no oral exudates RS: No added sounds CVS: normal S1 and S2, no murmurs ABD: soft, non-tender EXTREMITIES: no edema Results - Labs CBC & BMP: 12/29/16 05:15 12/29/16 05:15 Lab Results: I have reviewed the past 24 hour labs
--- NOTE | 2016-12-29 16:33 | Hospitalist Progress Note ---
Hospitalist: Subjective Interval history: 41-year-old male with pneumonia, breathing is better Exam - Constitutional Vitals: Period Temp Pulse Resp BP Sys/Zayas Pulse Ox Last 24 Hr 96.7 F-97.4 F 85-101 16-20 99-123/68-90 95-100 Exam: General: No Acute Distress HEENT: Normocephalic, atraumatic, Extra ocular movements intact Neck: Supple, No JVD Chest: Clear to auscultation B/L CV: S1 + S2 audible without murmur, gallop or rub Abd: soft, NT, Non-distended, BS + Ext: No edema Skin: No purpura, bruising or rash Rheumatologic: No Joint deformities Neurologic: Strength 5/5 all extremities, no gross sensory deficits Results - Labs CBC & BMP: 12/29/16 05:15 12/29/16 05:15 - Impressions Assessment and Plan: RML bacterial pneumonia/histoplasmosis Status: Acute Assessment and plan: Continue itraconazole for at least one month with follow-up serology titers Current Visit: Yes Thrombocytopenia, mild Status: Acute Assessment and plan: 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
[2016-12-29] MEDS: INSULIN REGULAR 100 UNIT/ML SUBCUT SCH ×2 (16:35→20:11)
[2016-12-30] MEDS: INSULIN REGULAR 100 UNIT/ML SUBCUT SCH ×2 (07:47→12:32)
[2016-12-30] MEDS: ITRACONAZOLE 100 MG CAPSULE PO SCH ×2 (07:59→14:16)
[2016-12-30] MEDS: ENOXAPARIN 40 MG/0.4 ML SYRINGE SUBCUT SCH (08:00)
[2016-12-30] MEDS: CARVEDILOL 6.25 MG TABLET PO SCH (08:00)
[2016-12-30] MEDS: NICOTINE 14 MG/24 HR PATCH TRANSDERM SCH (08:00)
[2016-12-30 12:44] VITALS: BP 109/88
--- NOTE | 2016-12-30 12:46 | Infectious Disease Progress ---
Assessment and Plan (1) Pneumonia Status: Acute Assessment and plan: Patient has pulmonary histoplasmosis. Recommendations: 1. Follow-up results of serum histoplasma serology; titers can be followed to assess response to treatment 2. Continue itraconazole therapy for at least one month. 3. Appointment to see me in the office in about 2 weeks. Check LFTs then and follow-up on histoplasma serology Discussed with at bedside. Discussed with Dr. 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 Current Visit: Yes (3) Abnormal liver function test Status: Acute Assessment and plan: AST higher than ALT; based on history from this is probably from alcoholism with liver cirrhosis. Current Visit: Yes (4) Acute respiratory failure with hypoxia Status: Acute Assessment and plan: Likely a CHF from cardiomyopathy. Current Visit: Yes Infectious Disease - PN: Subj Interval history: Patient feeling better overall and says he is ready to go home. He was approved for swing bed so he could get physical therapy but does not not want to go. will take care of him at home. He has been afebrile. Minimal cough. Eating better. Infectious Disease Exam (PN) - Constitutional Vitals: Temp Pulse Resp BP Pulse Ox 97.5 F L 99 H 18 120/90 95 12/30/16 08:00 12/30/16 08:00 12/30/16 08:00 12/30/16 08:00 12/30/16 08:00 General appearance: mild distress (Patient is sitting up talking and is relatively comfortable at present), under weight Exam: GEN: Awake and comfortable HEENT: Pale moist mucosa, no oral exudates RS: No added sounds CVS: normal S1 and S2, no murmurs ABD: soft, non-tender EXTREMITIES: no edema Results - Labs CBC & BMP: 12/29/16 05:15 12/29/16 05:15 Lab Results: I have reviewed the past 24 hour labs
--- NOTE | 2016-12-30 13:53 | Pulmonology Progress Note ---
Pulmonary - PN: Subj Interval history: Patient is a 41-year-old black man that comes in with shortness of breath and a right middle lobe pneumonia. He also has cardiomegaly and it looks like he has an ejection fraction of 10%. He says he will drink up to a sixpack of beer a day and sometimes will drink of whiskey with this. 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 He was having considerable DTs but this is cleared up fairly well. He has been feeling better each day and eating a little more. He is starting to do more activity with physical therapy. He says he is not coughing much and denies shortness of breath. He is starting to walk some with physical therapy. Overall he says he is better and wants to go home rather than a swing bed. Exam (Progress Note) - Constitutional Vitals: Period Temp Pulse Resp BP Sys/Zayas Pulse Ox Last 24 Hr 97 F-97.5 F 91-106 16-20 99-120/68-90 92-99 Exam: General appearance: no distress (Patient looks more alert and is sitting up eating breakfast. He is fairly calm and in no distress.) - Head Head exam: Present: normal inspection, normocephalic - Eye Eye exam: Present: EOMI. Absent: scleral icterus Pupils: Present: RUCHI - ENT ENT exam: Present: other (He does have dental caries and poor dentition) - Neck Neck exam: Absent: lymphadenopathy, thyromegaly - Respiratory Respiratory exam: Present: He has good breath sounds bilaterally and his lungs sound reasonably clear at present. His lungs sound okay today. - Cardiovascular Cardiovascular exam: Present: regular rate and rhythm, he has a laterally displaced PMI but his heart rate is much better now. - GI/Abdominal GI/Abdominal exam: Present: normal bowel sounds, soft. Absent: organomegaly, tenderness - Extremities Exam Extremities exam: Absent: calf tenderness, edema, he has no signs of phlebitis - Neurological Exam Neurological exam: Present: alert, CN II-XII intact. He is moving his extremities but is very weak. He has not done much activity yet. - Psychiatric Psychiatric exam: Present: He is much more alert today. - Skin Skin exam: Present: warm, dry. Absent: rash Results - Labs CBC & BMP: 12/29/16 05:15 12/29/16 05:15 Assessment and Plan (1) Abnormal liver function test Status: Acute Assessment and plan: Patient's bilirubin was 2.4 and he does have a history of drinking alcohol regularly. He has had some DTs but is getting better now. He is more alert now and is calmer. He seems to be doing a little better. Current Visit: Yes (2) Acute respiratory failure with hypoxia Status: Acute Assessment and plan: The patient has a right middle lobe pneumonia and cardiomegaly and comes in with shortness of breath and hypoxemia. His infiltrate is better. He looks like he has a severe cardiomyopathy causing most of his problems. He is not having any respiratory difficulties at present. He is feeling better and is not short of breath now. He can probably go from a pulmonary standpoint Current Visit: Yes (3) Pneumonia Status: Acute Assessment and plan: The patient has a right middle lobe pneumonia. Clinically he is doing much better. He has positive histoplasma serology has been started on itraconazole. He seems to be relatively stable at present. Current Visit: Yes Qualifiers: Pneumonia type: due to unspecified organism Laterality: right Lung location: middle lobe of lung Qualified Code(s): J18.1 - Lobar pneumonia, unspecified organism (4) Seizure Status: Acute Assessment and plan: Patient apparently had a seizure earlier. 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 He seems to be comfortable and tolerating medicines. He has no signs of heart failure at present. He continues to be extremely weak and needs to continue with physical therapy. Current Visit: Yes
--- NOTE | 2016-12-30 14:41 | Discharge Summary ---
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 Patient was seen by the emergency room physician noted a CT scan of the abdomen for some reason and the CT scan of the chest reveals a small pleural effusion of the possible thickening of the pleura on the right and anterior chest on the right side showing cavitary consolidation. Patient was admitted to the hospital with a diagnosis of community-acquired pneumonia and started on broad-spectrum antibiotics. Initially he was in the intensive care unit. Pulmonology and infectious disease are following. He also had cardiomyopathy and chronic systolic congestive heart failure with baseline ejection fraction 10%. He also has chronic nicotine addiction as well as alcohol abuse, and he was on DT prophylaxis with Librium. Overall he is stabilized and improved and was transferred to the floor. 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 Palma and switched to itraconazole, which she is tolerating quite well. His congestive heart failure is compensated and chronic systolic in nature for which she is on beta-carlito as well as SHERICE inhibitor. Patient was quite deconditioned and offered physical therapy. He also was offered swing bed or rehab but he declined. His culture turns are okay with him going home and follow-up with them as an outpatient. Patient has reached maximal hospital benefit and being discharged home in improved and stable condition. Total discharge time 45 minutes. - Time spent with patient Time with patient DS: Greater than 30 minutes Diagnosis - Discharge Diagnosis (1) Cavitary pneumonia Status: Resolved (2) Cardiomyopathy Status: Chronic Discharge Plan - Discharge Data Discharge Diet: advance to your usual diet Activity: resume usual activities as tolerated Hygiene: no restrictions Weight Bearing at Discharge: full weight bearing Driving: no restrictions Contact your physician if you experience:: fever over 101, Shortness of breath - Discharge Medications New Lisinopril [Prinivil] 2.5 mg PO DAILY #30 tablet Nicotine 14 mg/24 Hr Patch [Nicoderm CQ 14 mg/24 hr Patch] 1 patch TRANSDERM DAILY #30 patch Carvedilol [Coreg] 3.125 mg PO BID #60 tablet Itraconazole Cap [Sporanox Cap] 200 mg PO BID #120 capsule Continue Albuterol Sulfate [Proair HFA] 2 puffs INH DIRECTED PRN PRN Reason: Shortness Of Breath - Follow Up or Referral - Forms/Instructions Exam - Constitutional Vitals: Period Temp Pulse Resp BP Sys/Zayas Pulse Ox Last 24 Hr 97 F-97.5 F 91-106 16-20 99-120/68-90 92-99 Exam: General: No Acute Distress HEENT: Normocephalic, atraumatic, Extra ocular movements intact Neck: Supple, No JVD Chest: Clear to auscultation B/L CV: S1 + S2 audible without murmur, gallop or rub Abd: soft, NT, Non-distended, BS + Ext: No edema Skin: No purpura, bruising or rash Rheumatologic: No Joint deformities Neurologic: Strength 5/5 all extremities, no gross sensory deficits Discharge Results Procedures and tests throughout hospitalization: Pending Orders 12/29/16 16:34 Histoplasma Ab, S Routine Labs on day of discharge: Labs from last 24 hours 12/30/16 12/30/16 12/29/16 11:32 07:29 19:44 POC Glucose 142 H 140 H 83 12/29/16 15:25 POC Glucose 394 H DS: Provider Date of admission: 12/22/16 03:15 Primary care physician: . 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 Consulting Provider: Brent Santiago Consult to Specialist Group: Pulmonology When should Consulting Provider be notified: In am Person Notified: Gallo Date Notified: 12/22/16 Time Notified: 09:30 12/22/16 09:05 Consult to Dietitian [CONS] Routine Reason for Dietitian: Diet Recommendations 12/27/16 09:04 Consult to Physical Therapy [CONS] Routine Reason for Physical Therapy: Evaluate and Treat 12/27/16 13:40 Consult to Physician [CONS] Routine Comment: Urine histoplasma antigen was positive please eval Consulting Provider: Nani Hanna When should Consulting Provider be notified: In am When should Consulting Provider be notified: In am Person Notified: Lashell Date Notified: 12/28/16 Time Notified: 09:07 Consult Notification Comment: clifford monteiro 12/29/16 09:44 Consult to Case Mgmt/Social Srvs [CONS] Routine Reason for Case Mgmt/Social Srvs: Discharge Planning 12/29/16 10:03 Consult to Case Mgmt/Social Srvs [CONS] Routine Reason for Case Mgmt/Social Srvs: Rehab Discharging clinician: Myrna Talbot MD
--- NOTE | 2016-12-30 14:49 | Discharge Summary ---
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 Patient was seen by the emergency room physician noted a CT scan of the abdomen for some reason and the CT scan of the chest reveals a small pleural effusion of the possible thickening of the pleura on the right and anterior chest on the right side showing cavitary consolidation. Patient was admitted to the hospital with a diagnosis of community-acquired pneumonia and started on broad-spectrum antibiotics. Initially he was in the intensive care unit. Pulmonology and infectious disease are following. He also had cardiomyopathy and chronic systolic congestive heart failure with baseline ejection fraction 10%. He also has chronic nicotine addiction as well as alcohol abuse, and he was on DT prophylaxis with Librium. Overall he is stabilized and improved and was transferred to the floor. 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 Palma and switched to itraconazole, which she is tolerating quite well. His congestive heart failure is compensated and chronic systolic in nature for which she is on beta-carlito as well as SHERICE inhibitor. Patient was quite deconditioned and offered physical therapy. He also was offered swing bed or rehab but he declined. His culture turns are okay with him going home and follow-up with them as an outpatient. Patient has reached maximal hospital benefit and being discharged home in improved and stable condition. Total discharge time 45 minutes. Diagnosis - Discharge Diagnosis (1) Cavitary pneumonia Status: Resolved (2) Cardiomyopathy Status: Chronic Discharge Plan - Discharge Medications New Lisinopril [Prinivil] 2.5 mg PO DAILY #30 tablet Nicotine 14 mg/24 Hr Patch [Nicoderm CQ 14 mg/24 hr Patch] 1 patch TRANSDERM DAILY #30 patch Carvedilol [Coreg] 3.125 mg PO BID #60 tablet Itraconazole Cap [Sporanox Cap] 200 mg PO BID #120 capsule Continue Albuterol Sulfate [Proair HFA] 2 puffs INH DIRECTED PRN PRN Reason: Shortness Of Breath - Follow Up or Referral Follow Up: Nani Hanna MD [Physician] - 2 Weeks No PCP,. [Primary Care Provider] - 1 Week - Forms/Instructions Exam - Constitutional Vitals: Period Temp Pulse Resp BP Sys/Zayas Pulse Ox Last 24 Hr 97 F-97.5 F 91-106 16-20 99-120/68-90 92-99 Discharge Results Procedures and tests throughout hospitalization: Pending Orders 12/29/16 16:34 Histoplasma Ab, S Routine Labs on day of discharge: Labs from last 24 hours 12/30/16 12/30/16 12/29/16 11:32 07:29 19:44 POC Glucose 142 H 140 H 83 12/29/16 15:25 POC Glucose 394 H DS: Provider Date of admission: 12/22/16 03:15 Primary care physician: . 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 Consulting Provider: Brent Santiago Consult to Specialist Group: Pulmonology When should Consulting Provider be notified: In am Person Notified: Gallo Date Notified: 12/22/16 Time Notified: 09:30 12/22/16 09:05 Consult to Dietitian [CONS] Routine Reason for Dietitian: Diet Recommendations 12/27/16 09:04 Consult to Physical Therapy [CONS] Routine Reason for Physical Therapy: Evaluate and Treat 12/27/16 13:40 Consult to Physician [CONS] Routine Comment: Urine histoplasma antigen was positive please eval Consulting Provider: Nani Hanna When should Consulting Provider be notified: In am When should Consulting Provider be notified: In am Person Notified: Lashell Date Notified: 12/28/16 Time Notified: 09:07 Consult Notification Comment: clifford monteiro 12/29/16 09:44 Consult to Case Mgmt/Social Srvs [CONS] Routine Reason for Case Mgmt/Social Srvs: Discharge Planning 12/29/16 10:03 Consult to Case Mgmt/Social Srvs [CONS] Routine Reason for Case Mgmt/Social Srvs: Rehab Discharging clinician: Myrna Talbot MD
[2016-12-30] MEDS ORDERED: CARVEDILOL 6.25 MG TABLET PO SCH (21:00)
[2016-12-31] MEDS ORDERED: LISINOPRIL 2.5 MG TABLET PO SCH (09:00)
[2016-12-31] MEDS ORDERED: ITRACONAZOLE 100 MG CAPSULE PO SCH (15:00)
[2017-01-03 14:21] LABS: Histoplasma Immnodiffusion Negative (Negative)
== END 2016-12-30 16:40 | disposition home or self-care (01) | DRG 177 ==
LOC: N.ED 20:32 → N.EDINP 12-22 03:15 → SUATTDRO 12-22 03:15 → N.CC 12-22 07:54 → N.5E 12-25 09:57
PROVIDERS: ADMIT Internal Medicine Infectious Disease; ATTEND Hospitalist

== ENCOUNTER 2017-01-04 06:01 | Inpatient (IN) ==
--- NOTE | 2017-01-04 06:21 | Emergency Department Note ---
Saurabh Fernandes Rolonda, am scribing for, and in the presence of, John Reyes MD 06: 17. Amy Fernandes James D, MD, personally performed the services described in this documentation, ascribed by Ty Wiley in my presence, and it is both accurate and complete . Arrival - Arrival Chief Complaint: Upper Respiratory Stated Complaint: stomach hurting and hard to breathe/congested ED Nursing Triage Note: C/O Congestion/unable to take a deep breath/cough. Onset a couple of days ago. Pt was discharged from hospital last Wednesday after being treated for pneumonia. Pt/family reports that he was unable to get medications filled due to financial stress. Mode of Arrival: Wheelchair Source: Patient, Family (mother), Old Records Reviewed, RN Notes Reviewed - History of Present Illness HPI Narrative: Patient is a 41-year-old male with a known history of pulmonary histoplasmosis, cardiomyopathy, nicotine addiction, and alcohol abuse who presents to the emergency department short of breath stating that he cannot get his medication filled. The patient was discharged last week from the hospital with pulmonary histoplasmosis and having been placed on Sporanox. Onset (ago): month(s) Consistency: constant Severity: mild, moderate Severity scale (1-10): 4 Allergies/Adverse Reactions: Allergies Allergy/AdvReac Type Severity Reaction Status Date / Time No Known Allergies Allergy Unverified 12/21/16 20:52 Home Medications: Home Medications Medication Instructions Recorded Confirmed Type Carvedilol [Coreg] 3.125 mg PO BID #60 tablet 12/30/16 01/04/17 Rx Lisinopril [Prinivil] 2.5 mg PO DAILY #30 tablet 12/30/16 01/04/17 Rx Review of System - Review of System 12 point system: reviewed and no additional remarkable complaints except as stated - Review of System Constitutional: Absent: chills Eyes: Absent: pain Respiratory: Present: cough, respiratory distress (SOB), other (congestion) Cardiovascular: Absent: chest pain Gastrointestinal: Absent: nausea Genitourinary male: Absent: dysuria Musculoskeletal: Absent: arm pain Skin: Absent: rash Neurological: Absent: headache Psychiatric: Absent: anxiety Endocrine: Absent: cold intolerance Hematological/Lymphatic: Absent: easy bleeding Allergic/Immunologic: Absent: facial swelling Medical,Surgical,& Family Hx - Medical History Neurology: History of: Seizures (This admission 12/22/16) Respiratory: History of: Asthma - Family History Family History: Reports;: Family Cancer (father), Family Diabetes (father and mother), Family Heart Disease (sister), Family Hypertension (sister), Family Stroke (sister) - Social History Smoking Status: Current every day smoker Frequency of Alcohol Use: None Type of Drug Use: None Exam Vital Signs: Vital Signs Temperature 98.2 F 01/04/17 06:04 Pulse Rate 100 H 01/04/17 06:36 Respiratory Rate 20 01/04/17 06:36 Blood Pressure 138/100 01/04/17 06:36 O2 Sat by Pulse Oximetry 100 01/04/17 06:36 GENERAL: This is a well-nourished well-developed chronically and acutely ill- appearing black male in no apparent distress. VITAL SIGNS: Reviewed HEENT: Head is atraumatic and normocephalic. Pupils are equal round react to light. Extraocular movements are intact. Oropharynx is benign with moist mucous membranes. NECK: Neck is soft and supple without tenderness. There are no masses. There is no lymphadenopathy. LUNGS: Coarse breath sounds bilaterally. Chest rises symmetrically. There is no chest wall tenderness. CV: Heart is regular rate and rhythm without murmurs rubs or gallops. ABDOMEN: Abdomen is soft, nontender to palpation. There are no abdominal abnormal masses palpated. There is no organomegaly. Bowel sounds are present and active. SKIN: Skin is warm and dry. No rash. EXTREMITIES: Patient has full range of motion without tenderness. There is no pedal edema. NEUROLOGIC: Awake alert and oriented 4. Cranial nerves II through XII are intact. Motor is 5 over 5 in all extremities bilaterally. Deep tendon reflexes are 2+ and bilaterally equal. Course Course Narrative: The patient by his own admission since he left the hospital has continued to drink alcohol and smoke cigarettes. His fiance has attempted to get his medications and I have explained to the patient that his continued drinking and smoking bring him know closer to being able to afford his Sporanox. Patient was given Lasix 80 mg IV due to shortness of breath. - Consultations Consultation #1: Discussed with hospitalist. Patient will be admitted to their service. Time: 08:11 Results - Labs CBC & BMP: 01/04/17 06:26 01/04/17 06:26 Lab Results: I have reviewed the patients labs - Diagnostic Findings Procedure: Chest x-ray: image reviewed by me (Increased pulmonary markings bilaterally right greater than left) Disposition Clinical Impression: Pulmonary histoplasmosis, Cardiomyopathy, Nicotine addiction Case discussed with: patient Disposition: Still a Patient Condition: Stable
[2017-01-04 06:51] LABS: Basophils # 0.2 10*3/uL (0.0-0.2); Basophils % 1.6 % (0.0-0.8); Eosinophils # 0.1 10*3/uL (0.0-0.87); Eosinophils % 1.1 % (0.00-10.9); Immature Granulocytes % 0.4 %; Immature Granulocytes Absolute 0.04 #; Lymphocytes # 2.4 10*3/uL (1.4-4.0); Lymphocytes % 25.2 % (21.2-54.2); Mean Corpuscular HGB Conc 33.3 GM/DL (32-36); Mean Corpuscular Hemoglobin 33 PG (27-34); Mean Corpuscular Volume 98.8 FL (87-102); Mean Platelet Volume 11.3 FL (9.6-12.0); Monocytes # 0.7 10*3/uL (0.11-0.8); Monocytes % 7.7 % (1.7-12.7); Platelet Count 204 T/CUMM (130-400); Red Blood Count 4.25 MC/CUMM (3.8-5.5); Red Cell Distribution Width 12.6 % (9.3-17.3); White Blood Count 9.4 T/CUMM (4-12)
[2017-01-04 07:01] LABS: Albumin 2.7 G/DL (3.4-5.0); Calcium 8.8 MG/DL (8.5-10.1); Osmolality,Calculated 268.1 MOS/KG (273-304); Potassium 4.4 MMOL/L (3.5-5.1)
--- NOTE | 2017-01-04 07:44 | XRay Report ---
Exam: XR chest 2V Date: 01/04/2017 6:21 AM Indication: Pulmonary histoplasmosis Comparison: 12/26/2016 Technical: AP lateral Findings: Low volume effusion present right base. Cardiomegaly is present. No pneumothorax present. The bony structures are intact. The mediastinum is otherwise unremarkable. Impression: 1. Cardiomegaly 2. Right base atelectatic change infiltrates and low volume effusion. This could be secondary to mild cardiac decompensation or pneumonic infiltrate and parapneumonic effusion PROCEDURE INTERPRETED AT [facility] DEPARTMENT OF RADIOLOGY Final Report Signed by: Dr. Chema Suresh
[2017-01-04] MEDS ORDERED: FUROSEMIDE 40 MG/4 ML VIAL IV STA (08:08)
[2017-01-04] MEDS ORDERED: FUROSEMIDE 40 MG/4 ML VIAL ONE (08:14)
[2017-01-04] MEDS ORDERED: diphenhydrAMINE CAP 25 MG CAPSULE PO PRN (08:39)
[2017-01-04] MEDS ORDERED: NICOTINE 21 MG/24 HR PATCH TRANSDERM PRN (08:39)
[2017-01-04] MEDS ORDERED: MORPHINE 2 MG/1 ML SYRINGE IV PRN (08:39)
[2017-01-04] MEDS ORDERED: guaiFENesin/DM ER 600-30 MG TABLET PO PRN (08:39)
[2017-01-04] MEDS ORDERED: ACETAMINOPHEN 325 MG TABLET PO PRN ×2 (08:39)
[2017-01-04] MEDS ORDERED: ONDANSETRON 4 MG/2 ML VIAL IV PRN (08:39)
[2017-01-04] MEDS ORDERED: PROMETHAZINE 25 MG/1 ML VIAL IM PRN (08:39)
--- NOTE | 2017-01-04 08:51 | Hospitalist History & Physical ---
<Danielle Poe - Last Filed: 01/04/17 08:44> Assessment and Plan - Time spent with patient Time spent with patient: Greater than 30 minutes (1) Alcohol abuse Status: Acute Assessment and plan: 41-year-old -[place] male admitted by the hospitalist service with complaints of shortness of breath. 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 Will restart his Sporanox and consult Dr. Hanna for evaluation. Will get social workers involved to assist with helping patient pay for his medication. Will also get physical therapy evaluation for possible swing bed versus rehab placement. Patient did refuse swing bed on his last admission. Already restarted patient's hypertensive medications and will continue to monitor this. Patient does have elevated BNP with some pulmonary edema and patient will be started on IV Lasix as well. We will recheck his labs in the morning and a cxr in [address] Sherwood will see and examine patient and further recommendations to follow. Current Visit: Yes (2) Shortness of breath Status: Acute Current Visit: Yes (3) Hypertension Status: Acute Current Visit: Yes (4) Cardiomyopathy Status: Acute Current Visit: Yes (5) Nicotine addiction Status: Acute Current Visit: Yes (6) Pulmonary histoplasmosis Status: Acute Current Visit: Yes History of Present Illness Chief complaint: Shortness of breath History of present illness: Mr. Bunch is a 41 year old male with history of hypertension, cardiomyopathy with an EF of 10%, alcohol and tobacco abuse and recent diagnosis of pulmonary histoplasmosis presenting to the ED with a 3 day history of increasing shortness of breath, fatigue, and chills. Patient was recently discharged on 12/30/2016 after admission for cavitary pneumonia. He was found to be hypertensive with a cardiomyopathy with EF of 10%. He was started on lisinopril and carvedilol. Dr. Hanna was consulted at that time and he was found to have pulmonary histoplasmosis resulting in pneumonia. Patient is HIV negative. She discharged him on itraconazole and patient did not get his antibiotic filled. Fiance in the room states that it was too expensive. Patient is afebrile and vital signs are stable. Patient's alkaline phosphatase is 119, BNP 3947. Rest of his labs are relatively unremarkable. Chest x-ray showing cardiomegaly with right basilar atelectatic change infiltrates and low volume effusion. After discussion with Dr. Reyes the ED physician and Dr. Sherwood the admitting hospitalist, it was agreed patient would be admitted for further evaluation and treatment. Patient's medicines have already been reconciled and he is a full code. Home Medications Medication Instructions Recorded Confirmed Type Carvedilol [Coreg] 3.125 mg PO BID #60 tablet 12/30/16 01/04/17 Rx Lisinopril [Prinivil] 2.5 mg PO DAILY #30 tablet 12/30/16 01/04/17 Rx Allergies Allergy/AdvReac Type Severity Reaction Status Date / Time No Known Allergies Allergy Unverified 12/21/16 20:52 Medical,Surgical,& Family Hx - Medical History Neurology: History of: Seizures (This admission 12/22/16) Respiratory: History of: Asthma - Surgical History Orthopedic Surgeries: Patient denies;: Orthopedic Surgery - Family History Family History: Reports;: Family Cancer (father), Family Diabetes (father and mother), Family Heart Disease (sister), Family Hypertension (sister), Family Stroke (sister) - Social History Smoking Status: Current every day smoker Frequency of Alcohol Use: Frequently Type of Drug Use: None Marital Status: Single Lives With:: Significant Other Functional capacity: independent ambulation 12 point system: reviewed and no additional remarkable complaints except as stated Exam - Constitutional Vitals: Period Temp Pulse Resp BP Sys/Zayas Pulse Ox Last 24 Hr 97.8 F-98.2 F 100-102 20-22 120-138/88-100 98-100 Exam: Constitutional System: No distress. No tremulousness. Head: Normocephalic, atraumatic. Ears, Nose and Throat System: No evidence of Otitis or Mastoiditis. No epistaxis or discharge, poor dentition Eyes System: Pupils equal, round, and reactive. Extraocular muscles intact. Neck: Supple, without adenopathy, No jugular venous distention. No thyromegaly, neck mass, or prior surgery apparent. Respiratory System: Chest mild rales bilaterally to auscultation. Cardiovascular System: Heart with mildly tachycardic rate and regular rhythm. No murmur. GI System: Abdomen soft, nontender. Normo active bowel sounds present. Musculoskeletal System: limbs with no pedal edema. Full distal pulses. Neurological System: No discernable sensory deficit. No aphasia Psychiatric System: Conversation is rational Results - Labs CBC & BMP: 01/04/17 06:26 01/04/17 06:26 Lab Results: I have reviewed the past 24 hour labs - Impressions EKG is pending - Diagnostic Findings Procedure: Chest x-ray: report reviewed by me (Cardiomegaly, right base atelectatic change infiltrates and low volume effusion could be secondary to mild cardiac decompensation or pneumonic infiltrate and parapneumonic effusion) <Zackery Sherwood - Last Filed: 01/04/17 15:57> History of Present Illness History of present illness: Patient seen and examined independently of CAROL Poe, agree with history, assessment and plan as documented. Patient recently discharged with histoplasmosis, unable to afford his medication. Now returns with sob. He has known systolic CHF with EF 10%. BNP is elevated. IV lasix. ID evaluated, continue with the plan for itraconazole for 1 month. Social work to assist with this. Exam - Constitutional Vitals: Period Temp Pulse Resp BP Sys/Zayas Pulse Ox Last 24 Hr 97.8 F-98.2 F 100-108 20-22 114-138/55-100 96-100 Results - Labs CBC & BMP: 01/04/17 06:26 01/04/17 06:26
[2017-01-04] MEDS: FUROSEMIDE 40 MG/4 ML VIAL IV SCH ×3 (11:13→20:24)
[2017-01-04] MEDS: CARVEDILOL 3.125 MG TABLET PO SCH ×2 (11:20→20:23)
[2017-01-04] MEDS: PANTOPRAZOLE 40 MG TABLET PO SCH (11:20)
[2017-01-04] MEDS: ITRACONAZOLE 100 MG CAPSULE PO SCH ×2 (12:32→20:23)
[2017-01-04] MEDS: ENOXAPARIN 40 MG/0.4 ML SYRINGE SUBCUT SCH (12:32)
[2017-01-04] MEDS: LISINOPRIL 2.5 MG TABLET PO SCH (12:32)
--- NOTE | 2017-01-04 13:56 | Infectious Disease Consult ---
Assessment and Plan (1) Alcohol abuse Status: Acute Current Visit: Yes (2) Pulmonary histoplasmosis Status: Acute Assessment and plan: Urine histoplasma antigen was positive as well as serum histoplasma antibody. Recommendations: Patient has resumed itraconazole therapy and social work to assist with getting this medicine on discharge. Dose is 200 mg p.o. twice a day and it should be continued for about a month. Thank you very much for the consult. I can see him about 2 weeks after discharge to make sure he is doing okay on the itraconazole. Current Visit: Yes (3) Cardiomyopathy Status: Chronic Current Visit: No History of Present Illness Chief complaint: Pulmonary histoplasmosis History of present illness: Mr. Bunch is a 41 year old male who is here up until just last week. He was diagnosed with pulmonary histoplasmosis. He was started on hydrocortisone in the hospital and sent home but was unable to afford the prescription. Patient has cardiomyopathy as well diagnosed during last admission. He is a long- standing alcoholic. He says he came back to the hospital because he was feeling bad, coughing quite a bit. No fever or shortness of breath. He did go back to drinking alcohol after he was discharged. Home Medications Medication Instructions Recorded Confirmed Type Carvedilol [Coreg] 3.125 mg PO BID #60 tablet 12/30/16 01/04/17 Rx Lisinopril [Prinivil] 2.5 mg PO DAILY #30 tablet 12/30/16 01/04/17 Rx Allergies Allergy/AdvReac Type Severity Reaction Status Date / Time No Known Allergies Allergy Unverified 12/21/16 20:52 12 point system: reviewed and no additional remarkable complaints except as stated (Per HPI) Medical,Surgical,& Family Hx - Medical History Neurology: History of: Seizures (This admission 12/22/16) Respiratory: History of: Asthma - Surgical History Orthopedic Surgeries: Patient denies;: Orthopedic Surgery - Family History Family History: Reports;: Family Cancer (father), Family Diabetes (father and mother), Family Heart Disease (sister), Family Hypertension (sister), Family Stroke (sister) - Social History Smoking Status: Current every day smoker Frequency of Alcohol Use: Frequently Type of Drug Use: None Infectious Disease Exam H&P - Constitutional Vitals: Vital Signs Temp Pulse Resp BP Pulse Ox 97.9 F 108 H 20 114/55 96 01/04/17 11:12 01/04/17 11:12 01/04/17 11:12 01/04/17 11:12 01/04/17 11:12 Intake and Output 01/03/17 01/04/17 01/04/17 23:59 07:59 15:59 Intake Total 200 / 200 Balance 200 / 200 Intake: Oral 200 / 200 Other: # Voids 0 # Bowel Movements 0 Weight 55.338 kg 55.338 kg Patient Weight 01/04/17 23:59 Weight 55.338 kg Exam: General: Patient relatively comfortable but thin and chronically ill looking HEENT: Mucous membranes pink and moist, anicteric acyanotic, RUCHI, no oropharyngeal exudates Neck: Supple, no thyroid gland enlargement Respiratory system: Breath sounds vesicular, no crepitations or wheezes heard Cardiovascular: Normal S1 and S2, no murmurs appreciated Abdomen: Normal bowel sounds, soft nontender throughout, no organomegaly or mass Genitourinary: No suprapubic pain or bladder distention Extremities: no edema Skin: No rash Reports - Labs CBC & BMP: 01/04/17 06:26 01/04/17 06:26 Labs: Laboratory Results - last 24 hr 01/04/17 01/04/17 01/04/17 06:26 06:26 06:26 WBC 9.4 RBC 4.25 Hgb 14.0 Hct 42.0 MCV 98.8 MCH 33 MCHC 33.3 RDW 12.6 Plt Count 204 MPV 11.3 Neut % (Auto) 64.0 Lymph % (Auto) 25.2 [place] % (Auto) 7.7 Eos % (Auto) 1.1 Baso % (Auto) 1.6 H Neut # (Auto) 6.0 Lymph # (Auto) 2.4 [place] # (Auto) 0.7 Eos # (Auto) 0.1 Baso # (Auto) 0.2 Immature Gran % 0.4 Nucleated RBC % 0.0 Immature Gran # 0.04 Nucleated RBCs # 0.00 Immature Plt Fraction 0.0 Sodium 135 L Potassium 4.4 Chloride 102 Carbon Dioxide 25 Anion Gap 12.4 BUN 8 Creatinine 1.10 GFR Calculation 98 BUN/Creatinine Ratio 7.00 Glucose 108 H Calculated Osmolality 268.1 L Calcium 8.8 Total Bilirubin 1.00 AST 52 H ALT 42 Alkaline Phosphatase 119 H B-Natriuretic Peptide 3947 H Total Protein 7.0 Albumin 2.7 L Globulin 4.3 H Albumin/Globulin Ratio 0.6 L - Diagnostic Findings Procedure: Chest x-ray: image reviewed by me, report reviewed by me (Opacity in right lung base)
[2017-01-04] MEDS ORDERED: LORazepam 2 MG/1 ML VIAL IV PRN (16:18)
[2017-01-04] MEDS: chlordiazePOXIDE 10 MG CAPSULE PO SCH ×2 (17:37→20:24)
[2017-01-05] MEDS: FUROSEMIDE 40 MG/4 ML VIAL IV SCH ×5 (03:53→20:22)
[2017-01-05 07:36] LABS: Basophils # 0.1 10*3/uL (0.0-0.2); Basophils % 1.6 % (0.0-0.8); Eosinophils # 0.1 10*3/uL (0.0-0.87); Eosinophils % 1.2 % (0.00-10.9); Hematocrit 38.2 VOL% (42.0-52.0); Hemoglobin 13.2 GM/DL (14.0-18.0); Immature Granulocytes % 0.6 %; Immature Granulocytes Absolute 0.05 #; Lymphocytes # 1.8 10*3/uL (1.4-4.0); Lymphocytes % 21.4 % (21.2-54.2); Mean Corpuscular HGB Conc 34.6 GM/DL (32-36); Mean Corpuscular Hemoglobin 33 PG (27-34); Mean Corpuscular Volume 95.7 FL (87-102); Mean Platelet Volume 11.3 FL (9.6-12.0); Monocytes # 0.7 10*3/uL (0.11-0.8); Monocytes % 8.3 % (1.7-12.7); Neutrophils # 5.6 10*3/uL (1.4-7.4); Neutrophils % 66.9 % (38.7-73.9); Platelet Count 190 T/CUMM (130-400); Red Blood Count 3.99 MC/CUMM (3.8-5.5); Red Cell Distribution Width 12.3 % (9.3-17.3); White Blood Count 8.4 T/CUMM (4-12)
[2017-01-05 08:13] LABS: Albumin 2.4 G/DL (3.4-5.0); Bilirubin,Total 1.3 MG/DL (0.2-1.0); Calcium 8.6 MG/DL (8.5-10.1); Magnesium 1.6 MG/DL (1.8-2.4); Osmolality,Calculated 275.5 MOS/KG (273-304); Potassium 3.4 MMOL/L (3.5-5.1); Total Protein 6.4 G/DL (6.4-8.3)
[2017-01-05] MEDS: PANTOPRAZOLE 40 MG TABLET PO SCH (08:13)
[2017-01-05] MEDS: CARVEDILOL 3.125 MG TABLET PO SCH ×2 (08:13→20:21)
[2017-01-05] MEDS: chlordiazePOXIDE 10 MG CAPSULE PO SCH ×3 (08:13→16:08)
[2017-01-05] MEDS: LISINOPRIL 2.5 MG TABLET PO SCH (08:13)
[2017-01-05] MEDS: ITRACONAZOLE 100 MG CAPSULE PO SCH ×2 (08:13→20:21)
[2017-01-05] MEDS ORDERED: MAGNESIUM SULF RIDER 4 GM in PREMIX 1 EACH IV PRN (08:56)
--- NOTE | 2017-01-05 09:09 | XRay Report ---
History is short of breath Chest, 2 views Comparison 01/04/2017 The cardiac silhouette is enlarged. There is been mild improvement of prior diffuse pulmonary opacities. Minimal diffuse reticular opacities remain with continued patchy more focal pulmonary opacities in the right mid and lower chest. Small right effusion remains. Annmarie tiny suspected granuloma at the lateral left base again seen Impression: Slight improvement with continued mild diffuse infiltrates versus edema and more focal patchy area infiltrate in the right lung base PROCEDURE INTERPRETED AT [facility] DEPARTMENT OF RADIOLOGY Final Report Signed by: Dr. Rhea Schilling
[2017-01-05] MEDS: POTASSIUM CHLORIDE RIDER 10 MEQ in PREMIX 1 EACH IV PRN (09:52)
[2017-01-05] MEDS: ENOXAPARIN 40 MG/0.4 ML SYRINGE SUBCUT SCH (11:08)
--- NOTE | 2017-01-05 11:21 | Hospitalist Progress Note ---
<Niurka Chairezda - Last Filed: 01/05/17 11:18> Assessment and Plan (1) Alcohol abuse Status: Acute Assessment and plan: The patient has a long-standing history of alcohol abuse which places him at an increased risk for the development of delirium tremors. He reports that his last alcohol intake was only "2 beers" after discharge. Ativan and Librium was started yesterday prophylactically. In addition, we will start thiamine and multivitamin p.o. Current Visit: Yes (2) Cardiomyopathy Status: Acute Assessment and plan: Upon review of the patient's medical record, echocardiogram was obtained during the last clinical encounter on December 2016. Echocardiogram was significant for severely reduced left ventricular systolic function with global hypokinesis and ejection fraction at 10%. In addition, grade 3/4 diastolic dysfunction consistent with impaired restriction filling pattern was noted. Mild biventricular dilation with biventricular hypokinesis and mild right atrial enlargement is noted. Mild mitral and pulmonic regurgitation and moderate tricuspid regurgitation was noted. Pulmonary hypertension was noted with a pulmonary artery pressure estimated at 48 mmHg. Due to the severity of the patient's cardiomyopathy, we will consult cardiology to evaluate. In addition, at the time of admission the patient's BNP was noted at 3947. The patient was diuresed overnight however, his BNP was still noted at 3512. Current Visit: Yes (3) Nicotine addiction Status: Acute Current Visit: Yes (4) Abnormal liver function test Status: Acute Assessment and plan: The patient has chronic alcohol use. Total bilirubin at the time of admission was noted at 1.00, AST of 52, ALT of 42, and alkaline phosphatase was noted at 119. Today's labs were significant for a moderate elevation in the patient's total bilirubin which was noted at 1.30, AST 43, ALT 40, and alkaline phosphatase remained at 119. We will consult gastroenterology to evaluate and monitor the patient's liver function during the clinical encounter. Current Visit: No (5) Hypokalemia Status: Acute Assessment and plan: Potassium was noted at 3.4 today. We will start the electrolyte protocol, correct deficit, and recheck labs in a.m. Current Visit: Yes (6) Hypomagnesemia Status: Acute Assessment and plan: Magnesium was noted at 1.6 today. We will start the magnesium replacement protocol, correct deficit, and recheck labs in a.m. Current Visit: Yes Exam - Constitutional Vitals: Period Temp Pulse Resp BP Sys/Zayas Pulse Ox Last 24 Hr 97.1 F-98.8 F 84-92 16-20 98-114/64-75 94-98 Results - Labs CBC & BMP: 01/05/17 06:44 01/05/17 06:44 Specialty Discharge - Follow Up or Referrals Follow up with: Nani Hanna MD [Physician] - 2 Weeks <Zackery Sherwood - Last Filed: 01/05/17 15:18> Hospitalist: Subjective Interval history: Patient seen and examined independently of HALEY Chairez, agree with assessment and plan as documented. He denies sob. His BNP is elevated but clinically he has now edema and no sob. His EF is 10, cardiology recommend heart cath, which he is considering. Social work assisting with patient receiving itraconazole for his histo, this could be ready as soon as tomorrow. Exam - Constitutional Vitals: Period Temp Pulse Resp BP Sys/Zayas Pulse Ox Last 24 Hr 97.1 F-98.8 F 84-92 16-20 92-114/64-75 94-98 General appearance: under weight - Head Head exam: Present: normocephalic, atraumatic - Eye Eye exam: Present: EOMI Pupils: Present: RUCHI - ENT ENT exam: Present: normal exam - Neck Neck exam: Present: normal inspection - Respiratory Respiratory exam: Present: clear to auscultation bilaterally. Absent: rhonchi, wheezes - Cardiovascular Cardiovascular exam: Present: regular rate and rhythm - GI/Abdominal GI/Abdominal exam: Present: normal bowel sounds, soft. Absent: tenderness, rebound - Extremities Exam Extremities exam: Present: normal inspection. Absent: edema - Back Exam Back exam: Present: normal inspection - Neurological Exam Neurological exam: Present: alert, oriented X3 - Psychiatric Psychiatric exam: Present: normal affect, normal mood - Skin Skin exam: Present: warm, intact Results - Labs CBC & BMP: 01/05/17 06:44 01/05/17 06:44
--- NOTE | 2017-01-05 12:07 | Cardiology Consult Note ---
Assessment and Plan - Time spent with patient Time spent with patient: Greater than 30 minutes (Exam chart reviewed discussion with the patient education and orders) (1) Alcohol abuse Status: Chronic Current Visit: Yes (2) Cardiomyopathy Status: Chronic Assessment and plan: This very well may be related to his alcohol use or other potential etiology. I recommended left heart catheterization to further assess and rule out coronary artery disease or coronary anomalies. Patient wishes to talk with his fiance. Recommend adjusting his medications at this time. SHERICE inhibitor beta- carlito and diuretics. Alcohol cessation is a must. Current Visit: Yes (3) Hypokalemia Status: Acute Current Visit: Yes (4) Hypomagnesemia Status: Acute Current Visit: Yes (5) Nicotine addiction Status: Acute Current Visit: Yes Qualifiers: Nicotine product type: cigarettes (6) Pulmonary histoplasmosis Status: Chronic Current Visit: Yes (7) Abnormal liver function test Status: Chronic Current Visit: No (8) Seizure Status: Chronic Current Visit: No (9) Weight loss Status: Chronic Current Visit: No History of Present Illness - Data of Consult Patient: new to practice Consult date: 01/05/17 Requesting Physician: Zackery Sherwood - Consult Narrative Reason for consult: CM History of present illness: Mr. Bunch is a 41 year old male alcoholic gentleman who has demonstrated noncompliance that he states is due to cost for treatment of his pulmonary histoplasmosis. The patient is 6 feet 2 inches tall weighs 120 pounds he has significantly depressed body weight with a BMI 15.9. The patient was found on have an ejection fraction of 10% with no clear regional wall motion abnormality. He is now admitted with dyspnea and what appears to be some component of heart failure exacerbation we have been asked to see. The patient works at [employer] and denies any dyspnea on exertion he states he sleeps on one pillow he also denies chronic lower extremity edema. He is very stoic. He demonstrates impressive psychomotor slowing. He states that he drinks "2 beers " daily. He denies recreational or IV drugs. He states that he was not able to buy his medications for his lungs because of cost. He was able to buy his heart medicines without difficulty because they were cheap. His lung medicines were over $1200. We have been asked to see for his cardiomyopathy. I discussed with the patient about coronary artery disease. Although he has no identifiable risk factors except tobacco use and some remote family history his parents when they were older given his low EF would likely need left heart catheterization selective coronary angiography. I discussed with the patient about this and he wants to wait and discuss with his fiance. He is the father of 6 children. CC: Zackery Sherwood MD - Home Medications and Allergies Home Medications: Home Medications Medication Instructions Recorded Confirmed Type Carvedilol [Coreg] 3.125 mg PO BID #60 tablet 12/30/16 01/04/17 Rx Lisinopril [Prinivil] 2.5 mg PO DAILY #30 tablet 12/30/16 01/04/17 Rx Allergies/Adverse Reactions: Allergies Allergy/AdvReac Type Severity Reaction Status Date / Time No Known Allergies Allergy Unverified 12/21/16 20:52 - Constitutional Constitutional: Present: anorexia, weight loss. Absent: fatigue, fever(s), weakness, weight gain - EENT Eyes: Absent: blurry vision Ears: Absent: decreased hearing Nose, mouth and throat: Absent: dysphagia, neck mass, sore throat - Cardiovascular Cardiovascular: Absent: dyspnea, dyspnea on exertion, edema, radiating jaw, neck or arm pain - Respiratory Respiratory: Absent: dyspnea, dyspnea on exertion - Gastrointestinal Gastrointestinal: Absent: abdominal pain, dyspepsia - Genitourinary Genitourinary: Absent: hematuria, nocturia - Musculoskeletal Musculoskeletal: Absent: arthralgias, joint swelling - Neurological Neurological: Present: other (Severe psychomotor slowing) - Psychiatric Psychiatric: Present: depression - Endocrine Endocrine: Present: cold intolerance. Absent: heat intolerance - Hematologic/Lymphatic Hematologic/Lymphatic: Absent: easy bleeding, easy bruising Medical,Surgical,& Family Hx - Medical History Cardio: History of: Cardiovascular Problems (Cardiomyopathy) Neurology: History of: Seizures (This admission 12/22/16) Respiratory: History of: Asthma - Surgical History Orthopedic Surgeries: Patient denies;: Orthopedic Surgery - Family History Family History: Reports;: Family Cancer (father), Family Diabetes (father and mother), Family Heart Disease (sister), Family Hypertension (sister), Family Stroke (sister) - Social History Smoking Status: Current every day smoker Frequency of Alcohol Use: Frequently Type of Drug Use: None Marital Status: Life Partner Lives With:: Fiance' Functional capacity: independent ambulation Physical Examination Vital Signs Temp Pulse Resp BP Pulse Ox 97.8 F 102 H 22 120/88 98 01/04/17 06:04 01/04/17 06:04 01/04/17 06:04 01/04/17 06:04 01/04/17 06:04 General: Present: Other (Chronically ill very thin-appearing age-appropriate male) HEENT: Absent: Jaundice Neck: Present: Supple Neck, Midline Trachea Cardiac: Present: Reg Rate and Rhythm, S1/S2, S3 Lungs: Present: Normal Exam Neuro: Present: Motor Function Intact, Other (Very slow). Absent: Tingling, Weakness Abdomen: Present: Soft, Active Bowel Sounds Skin: Present: Clear, Rash Musculoskeletal: Present: Erythematous Joints Extremities: Present: Normal Gait, No Clubbing, No Cyanosis Result/EKG - Labs CBC & BMP: 01/05/17 06:44 01/05/17 06:44 Labs: Laboratory Results - last 24 hr 01/04/17 01/05/17 01/05/17 15:47 06:44 06:44 WBC 8.4 RBC 3.99 Hgb 13.2 L Hct 38.2 L MCV 95.7 MCH 33 MCHC 34.6 RDW 12.3 Plt Count 190 MPV 11.3 Neut % (Auto) 66.9 Lymph % (Auto) 21.4 [place] % (Auto) 8.3 Eos % (Auto) 1.2 Baso % (Auto) 1.6 H Neut # (Auto) 5.6 Lymph # (Auto) 1.8 [place] # (Auto) 0.7 Eos # (Auto) 0.1 Baso # (Auto) 0.1 Immature Gran % 0.6 Nucleated RBC % 0.0 Immature Gran # 0.05 Nucleated RBCs # 0.00 Immature Plt Fraction 0.0 Sodium 139 Potassium 3.4 L Chloride 101 Carbon Dioxide 29 Anion Gap 12.4 BUN 10 Creatinine 1.10 GFR Calculation 99 BUN/Creatinine Ratio 9.00 Glucose 94 POC Glucose 93 Calculated Osmolality 275.5 Calcium 8.6 Magnesium 1.6 L Total Bilirubin 1.30 H AST 43 H ALT 40 Alkaline Phosphatase 119 H B-Natriuretic Peptide Total Protein 6.4 Albumin 2.4 L Globulin 4.0 H Albumin/Globulin Ratio 0.6 L 01/05/17 01/05/17 06:45 07:05 WBC RBC Hgb Hct MCV MCH MCHC RDW Plt Count MPV Neut % (Auto) Lymph % (Auto) [place] % (Auto) Eos % (Auto) Baso % (Auto) Neut # (Auto) Lymph # (Auto) [place] # (Auto) Eos # (Auto) Baso # (Auto) Immature Gran % Nucleated RBC % Immature Gran # Nucleated RBCs # Immature Plt Fraction Sodium Potassium Chloride Carbon Dioxide Anion Gap BUN Creatinine GFR Calculation BUN/Creatinine Ratio Glucose POC Glucose 108 H Calculated Osmolality Calcium Magnesium Total Bilirubin AST ALT Alkaline Phosphatase B-Natriuretic Peptide 3512 H Total Protein Albumin Globulin Albumin/Globulin Ratio Specialty Discharge - Follow Up or Referrals Follow up with: Nani Hanna MD [Physician] - 2 Weeks
[2017-01-05] MEDS: MAGNESIUM SULF RIDER 2 GM in PREMIX 1 EACH IV PRN (20:29)
[2017-01-06] MEDS: chlordiazePOXIDE 10 MG CAPSULE PO SCH ×5 (00:37→20:07)
[2017-01-06] MEDS: FUROSEMIDE 40 MG/4 ML VIAL IV SCH ×3 (02:56→14:39)
[2017-01-06 06:18] LABS: Basophils # 0.1 10*3/uL (0.0-0.2); Basophils % 1.4 % (0.0-0.8); Eosinophils # 0.2 10*3/uL (0.0-0.87); Hematocrit 37.8 VOL% (42.0-52.0); Hemoglobin 13.2 GM/DL (14.0-18.0); Immature Granulocytes % 0.4 %; Immature Granulocytes Absolute 0.03 #; Lymphocytes # 1.7 10*3/uL (1.4-4.0); Lymphocytes % 23.5 % (21.2-54.2); Mean Corpuscular HGB Conc 34.9 GM/DL (32-36); Mean Corpuscular Hemoglobin 33 PG (27-34); Monocytes # 0.7 10*3/uL (0.11-0.8); Neutrophils # 4.7 10*3/uL (1.4-7.4); Neutrophils % 63.7 % (38.7-73.9); Platelet Count 200 T/CUMM (130-400); Red Blood Count 4.02 MC/CUMM (3.8-5.5); Red Cell Distribution Width 12.1 % (9.3-17.3); White Blood Count 7.4 T/CUMM (4-12)
[2017-01-06 06:43] LABS: Calcium 8.8 MG/DL (8.5-10.1); Magnesium 1.7 MG/DL (1.8-2.4); Osmolality,Calculated 270.8 MOS/KG (273-304); Potassium 3.1 MMOL/L (3.5-5.1)
[2017-01-06] MEDS: POTASSIUM CHLORIDE RIDER 10 MEQ in PREMIX 1 EACH IV PRN ×4 (06:45→15:20)
[2017-01-06 06:46] LABS: Albumin 2.4 G/DL (3.4-5.0); Bilirubin,Total 0.8 MG/DL (0.2-1.0); Calcium 8.6 MG/DL (8.5-10.1); Magnesium 1.6 MG/DL (1.8-2.4); Osmolality,Calculated 270.8 MOS/KG (273-304); Phosphorous 4.7 MG/DL (2.5-4.9); Total Protein 6.8 G/DL (6.4-8.3)
[2017-01-06] MEDS: MAGNESIUM SULF RIDER 2 GM in PREMIX 1 EACH IV PRN (08:47)
--- NOTE | 2017-01-06 08:50 | XRay Report ---
XR chest 1V portable Indication: COPD Comparison: 05 January 2017 Findings: The heart and mediastinum are normal in size and configuration. The pulmonary vascularity is normal in caliber. Right lower lung increased density and small effusion are present, similar to previous exam. No other lung infiltrates, effusions, pneumothorax or other abnormality is demonstrated. Impression: No significant changes. PROCEDURE INTERPRETED AT [facility] DEPARTMENT OF RADIOLOGY Final Report Signed by: Dr. Jaziel Jacobo
[2017-01-06] MEDS: SPIRONOLACTONE 25 MG TABLET PO SCH (08:51)
[2017-01-06] MEDS: PANTOPRAZOLE 40 MG TABLET PO SCH (08:51)
[2017-01-06] MEDS: ITRACONAZOLE 100 MG CAPSULE PO SCH ×2 (08:51→20:08)
[2017-01-06] MEDS: FUROSEMIDE 40 MG TABLET PO SCH ×2 (08:51→14:40)
--- NOTE | 2017-01-06 09:59 | Physician Query Form ---
CLICK EDIT DOCUMENT TO SELECT QUERY ANSWER --> OK --> SIGN Umm Ogden RN Clinical Storehouse Clerk W) [phone] (f) [phone] [email or web address] PROVIDERS: Make your selection(s) from the choices in EACH section by typing an "x" and enter comments in the comment section. Please use your independent medical judgment in providing your response. This request does not imply that any particular answer is desired or expected. CLINICAL INDICATORS: (Providers should not edit this section) Based on documentation of "Echocardiogram was significant for severely reduced left ventricular systolic function with global hypokinesis and ejection fraction at 10%." "Right base atelectatic change infiltrates and low volume effusion" "In addition, grade 3/4 diastolic dysfunction consistent with impaired restriction filling pattern was noted" BNP of 3947. Treated with IV Lasix. Please provide further specificity regarding CHF. ACUITY: ( ) Acute ( ) Chronic ( x) Acute on Chronic ( ) Clinically unable to determine TYPE: ( ) Systolic (HFrEF - heart failure with reduced systolic function/EF) ( ) Diastolic (HFpEF - heart failure with preserved systolic function/EF) (x ) Combined Systolic/Diastolic ( ) Other, please specify: ( ) Clinically unable to determine ( ) Past Medical History of Systolic CHF ( ) Past Medical History of Diastolic CHF ( ) Clinically unable to determine COMMENTS: PLEASE ALSO DOCUMENT RESPONSE IN PROGRESS NOTES AND/OR DISCHARGE SUMMARY Use of terms such as suspected, likely, or probable (associated with a specific diagnosis that is being evaluated, monitored, or treated as if it exists) are acceptable and can be restated in the discharge summary if not ruled out. MTDD
--- NOTE | 2017-01-06 10:03 | Physician Query Form ---
CLICK EDIT DOCUMENT TO SELECT QUERY ANSWER --> OK --> SIGN Umm Ogden RN Clinical Limb Driver W) [phone] (f) [phone] [email or web address] PROVIDERS: Make your selection(s) from the choices in EACH section by typing an "x" and enter comments in the comment section. Please use your independent medical judgment in providing your response. This request does not imply that any particular answer is desired or expected. 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 ( x) Malnutrition ( ) mild ( ) moderate (x ) severe ( ) Protein calorie malnutrition ( ) mild ( ) moderate ( ) severe ( ) Emaciation due to malnutrition ( ) Nutritional marasmus ( ) Cachexia ( ) Underweight ( ) No nutritional deficiency ( ) Other, please specify: ( ) Clinically unable to determine Mild Malnutrition (BMI < 18.5, % Normal Body Weight 85-95%) Moderate Malnutrition (BMI < 17, % Normal Body Weight 75-85%) Severe Malnutrition (BMI < 16, % Normal Body Weight < 75%) Source: [place] COMMENTS: PLEASE ALSO DOCUMENT RESPONSE IN PROGRESS NOTES AND/OR DISCHARGE SUMMARY Use of terms such as suspected, likely, or probable (associated with a specific diagnosis that is being evaluated, monitored, or treated as if it exists) are acceptable and can be restated in the discharge summary if not ruled out. MTDD
--- NOTE | 2017-01-06 10:15 | Hospitalist Progress Note ---
<Nain Chairez - Last Filed: 01/06/17 10:11> Assessment and Plan (1) Alcohol abuse Status: Chronic Assessment and plan: The patient has a long-standing history of alcohol abuse which places him at an increased risk for the development of delirium tremors. He reports that his last alcohol intake was only "2 beers" after discharge. Ativan and Librium was started yesterday prophylactically. In addition, we will start thiamine and multivitamin p.o. 01/06-spoke with patient and family members in great detail regarding the need to permanently refrain from alcohol use. No signs or symptoms of impending delirium tremors noted. We will continue prophylactic Librium, thiamine, and multivitamin as previously ordered. Current Visit: Yes (2) Cardiomyopathy Status: Chronic Assessment and plan: Upon review of the patient's medical record, echocardiogram was obtained during the last clinical encounter on December 2016. Echocardiogram was significant for severely reduced left ventricular systolic function with global hypokinesis and ejection fraction at 10%. In addition, grade 3/4 diastolic dysfunction consistent with impaired restriction filling pattern was noted. Mild biventricular dilation with biventricular hypokinesis and mild right atrial enlargement is noted. Mild mitral and pulmonic regurgitation and moderate tricuspid regurgitation was noted. Pulmonary hypertension was noted with a pulmonary artery pressure estimated at 48 mmHg. Due to the severity of the patient's cardiomyopathy, we will consult cardiology to evaluate. In addition, at the time of admission the patient's BNP was noted at 3947. The patient was diuresed overnight however, his BNP was still noted at 3512. 01/06-the patient was seen and evaluated by cardiology. The patient has been advised of the need for a heart catheterization. Initially, the patient refused heart catheterization stating that he wanted to speak with his family first. This morning I spoke with both patient and family regarding the patient' s current status and need for further cardiac diagnostic testing. The patient has agreed for cardiac catheterization this a.m. The patient was placed on a fluid restriction overnight. Will continue to diurese and recheck BNP in AM. Current Visit: Yes (3) Nicotine addiction Status: Acute Current Visit: Yes Qualifiers: Nicotine product type: cigarettes (4) Abnormal liver function test Status: Chronic Assessment and plan: The patient has chronic alcohol use. Total bilirubin at the time of admission was noted at 1.00, AST of 52, ALT of 42, and alkaline phosphatase was noted at 119. Today's labs were significant for a moderate elevation in the patient's total bilirubin which was noted at 1.30, AST 43, ALT 40, and alkaline phosphatase remained at 119. We will consult gastroenterology to evaluate and monitor the patient's liver function during the clinical encounter 01/06-improvement in hepatic function noted this a.m. Total bilirubin noted at 0.80, AST 28, ALT 34, however, alkaline phosphatase noted at 148. We will continue to monitor patient's liver function. Will refrain from the use of possibly hepatotoxic agents. Current Visit: No (5) Hypokalemia Status: Acute Assessment and plan: Potassium was noted at 3.4 today. We will start the electrolyte protocol, correct deficit, and recheck labs in a.m. 01/06-potassium noted at 3.1. We will correct the deficit and recheck labs in a.m. Current Visit: Yes (6) Hypomagnesemia Status: Acute Assessment and plan: Magnesium was noted at 1.6 today. We will start the magnesium replacement protocol, correct deficit, and recheck labs in a.m. 01/06-magnesium level noted at 1.7. We will correct the deficit and recheck labs in a.m. Current Visit: Yes (7) Pulmonary histoplasmosis Status: Chronic Assessment and plan: We will continue itraconazole per infectious disease recommendation. automotive services manager has been consulted to assist the patient with prescription assistance at the time of discharge. Current Visit: Yes Exam - Constitutional Vitals: Period Temp Pulse Resp BP Sys/Zayas Pulse Ox Last 24 Hr 97.2 F-98.6 F 82-89 16- 92-126/60-76 96-99 Results - Labs CBC & BMP: 01/06/17 05:54 01/06/17 05:54 Specialty Discharge - Follow Up or Referrals Follow up with: Nani Hanna MD [Physician] - 2 Weeks <Zackery Sherwood - Last Filed: 01/06/17 16:45> Hospitalist: Subjective Interval history: Patient seen and examined independently of HALEY Chairez, agree with history, assessment and plan as documented. Patient denies sob. Exam - Constitutional Vitals: Period Temp Pulse Resp BP Sys/Zayas Pulse Ox Last 24 Hr 96.9 F-98.6 F 82-95 16- 98-126/60-92 97-99 Results - Labs CBC & BMP: 01/06/17 05:54 01/06/17 05:54
[2017-01-06] MEDS: ENOXAPARIN 40 MG/0.4 ML SYRINGE SUBCUT SCH (11:08)
[2017-01-06] MEDS: LISINOPRIL 2.5 MG TABLET PO SCH (13:01)
[2017-01-06] MEDS: CARVEDILOL 3.125 MG TABLET PO SCH ×2 (13:01→20:08)
[2017-01-06] MEDS: ASPIRIN EC 81 MG TABLET PO SCH (13:01)
[2017-01-06 14:51] LABS: INR 1.1
--- NOTE | 2017-01-06 15:38 | EKG Report ---
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
[2017-01-06] MEDS ORDERED: POTASSIUM CHLORIDE RIDER 10 MEQ in PREMIX 1 EACH IV PRN (16:31)
--- NOTE | 2017-01-06 16:35 | Cardiology Progress Note ---
<Anaya Nava E - Last Filed: 01/06/17 16:25> Assessment and Plan - Time spent with patient Time spent with patient: Greater than 30 minutes Time spent discussing smoking cessation with patient: 3 to 10 minutes (1) Pulmonary histoplasmosis Status: Chronic Assessment and plan: Sporanox has been restarted. Current Visit: Yes (2) Cardiomyopathy Status: Chronic Assessment and plan: EF 10%. Unable to categorize type of cardiomyopathy as he has not undergone cardiac catheterization at this point. Will further define as additional information and details. He is tolerating low-dose beta-carlito and SHERICE inhibitor. Current Visit: Yes (3) Nicotine addiction Status: Chronic Assessment and plan: Greater than 5 minutes was spent today discussing the merits of tobacco cessation Current Visit: Yes Qualifiers: Nicotine product type: cigarettes (4) Alcohol abuse Status: Chronic Assessment and plan: Greater than 5 minutes was spent today discussing the merits of alcohol cessation Current Visit: Yes (5) Shortness of breath Status: Acute Assessment and plan: Seems to be improved. Has diuresed well. Current Visit: Yes (6) Hypertension Status: Acute Assessment and plan: Adequately controlled. Will adjust medications accordingly during hospital stay Current Visit: Yes (7) Hypokalemia Status: Acute Assessment and plan: Will verify he is received replacement for his low potassium level. Check BMP daily. Current Visit: Yes (8) Hypomagnesemia Status: Acute Assessment and plan: Will verify patient has received treatment for his low magnesium level. Will check daily Current Visit: Yes (9) CHF (congestive heart failure), NYHA class III Status: Acute Assessment and plan: Improved. Adjusting diuretics accordingly. Continue afterload reduction as able. Current Visit: Yes Qualifiers: Congestive heart failure type: systolic Congestive heart failure chronicity : acute Qualified Code(s): I50.21 - Acute systolic (congestive) heart failure Cardiology - PN: Subj Interval history: ENVIRONMENTAL PROGRAM MANAGER: DR. ALMAZAN (NEW) SUMMARY: Mr. Bunch, 41BM, with risk factors significant for: Hypertension, tobaccoism, alcohol abuse and sedentary lifestyle. History of cardiomyopathy ( EF 10%), pulmonary histoplasmosis for which he has not been compliant with treatment. Patient was admitted January 04, 2017 with complaints of shortness of breath. He has been diagnosed with acute congestive heart failure secondary to systolic dysfunction (EF 10%), initially NYHA Class III. He has been diuresed and overall has improved in the hospital stay. Cardiology was consulted for evaluation of treatment and management of his cardiomyopathy. 2016: Yesterday, Dr. Almazan discussed the need for cardiac catheterization with patient. Patient preferred to discuss with his fiance. This afternoon, patient reports that he would like to proceed with cardiac catheterization. He is having no chest pain, heaviness or tightness at this time. He is not orthopneic and believes he can lie flat for an extended period of time. He is hypokalemic and hypomagnesemic, will treat. He is tolerating low-dose beta-carlito and low-dose SHERICE inhibitor. I will discontinue his IV Lasix as he is now prescribed oral Lasix and seems to have well compensated with his CHF. Continue Spironolactone. I will keep patient NPO. after midnight tonight for further possible work-up tomorrow. I will further discuss with Dr. Almazan and await additional recommendations. Exam (Progress Note) - Constitutional Vitals: Period Temp Pulse Resp BP Sys/Zayas Pulse Ox Last 24 Hr 96.9 F-98.6 F 82-95 16-20 98-126/60-92 97-99 Exam: General: [Emaciated, somnolent male. Cooperative. ] [Appears comfortable.] HEENT: [PERRL, normocephalic, atraumatic. Poor dentition noted mucous membranes moist. No jaundice noted. Conjunctiva moist and clear, sclerae anicteric] Neck: No JVD/HJR, no thyromegaly or lymphadenopathy noted. No carotid bruit appreciated Cardiac: [Regular rate and rhythm.] [No obvious murmur rub or gallop.] Lungs: [Clear to auscultation without accessory muscle use to assist the respiratory pattern.] Not requiring oxygen. Abdomen: Soft, bowel sounds normoactive. Nontender and nondistended. No abdominal bruit or thrill noted. No masses noted. Musculoskeletal: No fluid collection. Decreased range of motion is noted. Extremities: No clubbing, cyanosis noted. [ No edema noted.] Upper extremity pulses 2+. Lower extremity pulses 2+. Capillary refill less than 3 seconds. Skin: No unusual lesions or rashes. No skin breakdown appreciated. Neuro: Awake, alert and oriented 3. Moves all extremities well without hemiparesis or paralysis. No essential tremor is appreciated. Result/EKG - Labs CBC & BMP: 01/06/17 05:54 01/06/17 05:54 Lab Results: I have reviewed the past 24 hour labs Labs: Laboratory Results - last 24 hr 01/06/17 01/06/17 01/06/17 05:54 05:54 05:54 WBC 7.4 RBC 4.02 Hgb 13.2 L Hct 37.8 L MCV 94.0 MCH 33 MCHC 34.9 RDW 12.1 Plt Count 200 MPV 11.0 Neut % (Auto) 63.7 Lymph % (Auto) 23.5 [place] % (Auto) 9.0 Eos % (Auto) 2.0 Baso % (Auto) 1.4 H Neut # (Auto) 4.7 Lymph # (Auto) 1.7 [place] # (Auto) 0.7 Eos # (Auto) 0.2 Baso # (Auto) 0.1 Immature Gran % 0.4 Nucleated RBC % 0.0 Immature Gran # 0.03 Nucleated RBCs # 0.00 Immature Plt Fraction 0.0 INR PT Patient/Control Mix Circ Anticoag PTT Sodium 137 137 Potassium 3.0 L 3.1 L Chloride 98 98 Carbon Dioxide 30 30 Anion Gap 12.0 12.1 BUN 9 9 Creatinine 1.00 1.00 GFR Calculation 108 108 BUN/Creatinine Ratio 9.00 9.00 Glucose 77 78 POC Glucose Calculated Osmolality 270.8 L 270.8 L Calcium 8.6 8.8 Phosphorus 4.7 Magnesium 1.6 L 1.7 L Total Bilirubin 0.80 AST 28 ALT 34 Alkaline Phosphatase 148 H Total Protein 6.8 Albumin 2.4 L Globulin 4.4 H Albumin/Globulin Ratio 0.5 L 01/06/17 01/06/17 01/06/17 05:54 10:56 14:12 WBC RBC Hgb Hct MCV MCH MCHC RDW Plt Count MPV Neut % (Auto) Lymph % (Auto) [place] % (Auto) Eos % (Auto) Baso % (Auto) Neut # (Auto) Lymph # (Auto) [place] # (Auto) Eos # (Auto) Baso # (Auto) Immature Gran % Nucleated RBC % Immature Gran # Nucleated RBCs # Immature Plt Fraction INR 1.1 PT Patient/Control Mix 12.0 Circ Anticoag PTT 28.0 Sodium Potassium 3.1 L Chloride Carbon Dioxide Anion Gap BUN Creatinine GFR Calculation BUN/Creatinine Ratio Glucose POC Glucose 106 Calculated Osmolality Calcium Phosphorus Magnesium Total Bilirubin AST ALT Alkaline Phosphatase Total Protein Albumin Globulin Albumin/Globulin Ratio 01/06/17 15:19 WBC RBC Hgb Hct MCV MCH MCHC RDW Plt Count MPV Neut % (Auto) Lymph % (Auto) [place] % (Auto) Eos % (Auto) Baso % (Auto) Neut # (Auto) Lymph # (Auto) [place] # (Auto) Eos # (Auto) Baso # (Auto) Immature Gran % Nucleated RBC % Immature Gran # Nucleated RBCs # Immature Plt Fraction INR PT Patient/Control Mix Circ Anticoag PTT Sodium Potassium Chloride Carbon Dioxide Anion Gap BUN Creatinine GFR Calculation BUN/Creatinine Ratio Glucose POC Glucose 142 H Calculated Osmolality Calcium Phosphorus Magnesium Total Bilirubin AST ALT Alkaline Phosphatase Total Protein Albumin Globulin Albumin/Globulin Ratio - EKG EKG results: interpreted by me EKG shows: sinus rhythm Specialty Discharge - Follow Up or Referrals Follow up with: Nani Hanna MD [Physician] - 2 Weeks <Kimberly Almazan - Last Filed: 01/06/17 21:00> Assessment and Plan (1) Alcohol abuse Status: Chronic Current Visit: Yes (2) Cardiomyopathy Status: Chronic Current Visit: Yes (3) Hypokalemia Status: Acute Current Visit: Yes (4) Hypomagnesemia Status: Acute Current Visit: Yes (5) Nicotine addiction Status: Chronic Current Visit: Yes Qualifiers: Nicotine product type: cigarettes (6) Pulmonary histoplasmosis Status: Chronic Current Visit: Yes (7) Abnormal liver function test Status: Chronic Current Visit: No (8) Seizure Status: Chronic Current Visit: No (9) Weight loss Status: Chronic Current Visit: No Exam (Progress Note) - Constitutional Vitals: Period Temp Pulse Resp BP Sys/Zayas Pulse Ox Last 24 Hr 96.9 F-98.2 F 82-95 16-20 98-115/60-92 92-99 Result/EKG - Labs CBC & BMP: 01/06/17 05:54 01/06/17 19:20 Labs: Laboratory Results - last 24 hr 01/06/17 01/06/17 01/06/17 05:54 05:54 05:54 WBC 7.4 RBC 4.02 Hgb 13.2 L Hct 37.8 L MCV 94.0 MCH 33 MCHC 34.9 RDW 12.1 Plt Count 200 MPV 11.0 Neut % (Auto) 63.7 Lymph % (Auto) 23.5 [place] % (Auto) 9.0 Eos % (Auto) 2.0 Baso % (Auto) 1.4 H Neut # (Auto) 4.7 Lymph # (Auto) 1.7 [place] # (Auto) 0.7 Eos # (Auto) 0.2 Baso # (Auto) 0.1 Immature Gran % 0.4 Nucleated RBC % 0.0 Immature Gran # 0.03 Nucleated RBCs # 0.00 Immature Plt Fraction 0.0 INR PT Patient/Control Mix Circ Anticoag PTT Sodium 137 137 Potassium 3.0 L 3.1 L Chloride 98 98 Carbon Dioxide 30 30 Anion Gap 12.0 12.1 BUN 9 9 Creatinine 1.00 1.00 GFR Calculation 108 108 BUN/Creatinine Ratio 9.00 9.00 Glucose 77 78 POC Glucose Calculated Osmolality 270.8 L 270.8 L Calcium 8.6 8.8 Phosphorus 4.7 Magnesium 1.6 L 1.7 L Total Bilirubin 0.80 AST 28 ALT 34 Alkaline Phosphatase 148 H Total Protein 6.8 Albumin 2.4 L Globulin 4.4 H Albumin/Globulin Ratio 0.5 L 01/06/17 01/06/17 01/06/17 05:54 10:56 14:12 WBC RBC Hgb Hct MCV MCH MCHC RDW Plt Count MPV Neut % (Auto) Lymph % (Auto) [place] % (Auto) Eos % (Auto) Baso % (Auto) Neut # (Auto) Lymph # (Auto) [place] # (Auto) Eos # (Auto) Baso # (Auto) Immature Gran % Nucleated RBC % Immature Gran # Nucleated RBCs # Immature Plt Fraction INR 1.1 PT Patient/Control Mix 12.0 Circ Anticoag PTT 28.0 Sodium Potassium 3.1 L Chloride Carbon Dioxide Anion Gap BUN Creatinine GFR Calculation BUN/Creatinine Ratio Glucose POC Glucose 106 Calculated Osmolality Calcium Phosphorus Magnesium Total Bilirubin AST ALT Alkaline Phosphatase Total Protein Albumin Globulin Albumin/Globulin Ratio 01/06/17 01/06/17 15:19 19:20 WBC RBC Hgb Hct MCV MCH MCHC RDW Plt Count MPV Neut % (Auto) Lymph % (Auto) [place] % (Auto) Eos % (Auto) Baso % (Auto) Neut # (Auto) Lymph # (Auto) [place] # (Auto) Eos # (Auto) Baso # (Auto) Immature Gran % Nucleated RBC % Immature Gran # Nucleated RBCs # Immature Plt Fraction INR PT Patient/Control Mix Circ Anticoag PTT Sodium Potassium 3.5 Chloride Carbon Dioxide Anion Gap BUN Creatinine GFR Calculation BUN/Creatinine Ratio Glucose POC Glucose 142 H Calculated Osmolality Calcium Phosphorus Magnesium 2.2 Total Bilirubin AST ALT Alkaline Phosphatase Total Protein Albumin Globulin Albumin/Globulin Ratio
[2017-01-06] MEDS ORDERED: MAGNESIUM SULF RIDER 2 GM in PREMIX 1 EACH IV PRN (16:40)
[2017-01-06] MEDS ORDERED: MAGNESIUM SULF RIDER 4 GM in PREMIX 1 EACH IV PRN (16:40)
[2017-01-06 20:06] LABS: Magnesium 2.2 MG/DL (1.8-2.4); Potassium 3.5 MMOL/L (3.5-5.1)
[2017-01-07] MEDS ORDERED: diphenhydrAMINE CAP 25 MG CAPSULE PO ONE (06:00)
[2017-01-07] MEDS ORDERED: DIAZEPAM 5 MG TABLET PO ONE (06:00)
[2017-01-07] MEDS: SODIUM CHLORIDE 0.45% 1,000 ML IV SCH ×2 (06:24→18:10)
[2017-01-07 06:53] LABS: Basophils # 0.1 10*3/uL (0.0-0.2); Basophils % 1.7 % (0.0-0.8); Eosinophils # 0.2 10*3/uL (0.0-0.87); Eosinophils % 2.4 % (0.00-10.9); Hematocrit 43.6 VOL% (42.0-52.0); Hemoglobin 14.7 GM/DL (14.0-18.0); Immature Granulocytes % 0.5 %; Immature Granulocytes Absolute 0.04 #; Lymphocytes # 2.2 10*3/uL (1.4-4.0); Lymphocytes % 26.9 % (21.2-54.2); Mean Corpuscular HGB Conc 33.7 GM/DL (32-36); Mean Corpuscular Hemoglobin 33 PG (27-34); Mean Corpuscular Volume 96.9 FL (87-102); Mean Platelet Volume 11.3 FL (9.6-12.0); Monocytes # 0.6 10*3/uL (0.11-0.8); Monocytes % 7.5 % (1.7-12.7); Neutrophils # 4.9 10*3/uL (1.4-7.4); Platelet Count 246 T/CUMM (130-400); Red Cell Distribution Width 12.2 % (9.3-17.3); White Blood Count 8.1 T/CUMM (4-12)
[2017-01-07] MEDS: LISINOPRIL 2.5 MG TABLET PO SCH ×2 (07:01→08:06)
[2017-01-07 07:03] LABS: INR 1.1; PT Patient Result 11.8 SECS
--- NOTE | 2017-01-07 07:03 | Hospitalist Progress Note ---
Assessment and Plan (1) Pulmonary histoplasmosis Status: Chronic Assessment and plan: Evaluated as inpatient discharge 30 December 2016. Current Visit: Yes (2) Cardiomyopathy Status: Chronic Assessment and plan: Angiographially normal coronary arteries at catheterization 07 January. Current Visit: Yes Hospitalist: Subjective Interval history: 41-year-old male who had presented earlier in the month with abnormal chest x- ray and subsequent diagnosis of pulmonary histoplasmosis. An echocardiogram done during that hospital stay showed an ejection fraction of 10%. He does have a history of tobacco and alcohol abuse. He had re-presented on this occasion having not complied with his outpatient medical treatment for either his heart failure or his histoplasmosis. His vital signs overnight were stable. He is anticipated for an angiogram today for clarification of source of his left ventricular systolic dysfunction. Exam - Constitutional Vitals: Period Temp Pulse Resp BP Sys/Zayas Pulse Ox Last 24 Hr 96.9 F-98.2 F 82-95 18-20 99-115/64-92 92-99 General appearance: under weight - Respiratory Respiratory exam: Present: clear to auscultation bilaterally. Absent: rales, rhonchi, wheezes - Cardiovascular Cardiovascular exam: Present: regular rate and rhythm - GI/Abdominal GI/Abdominal exam: Present: normal bowel sounds. Absent: tenderness - Extremities Exam Extremities exam: Absent: edema - Neurological Exam Neurological exam: Present: alert, oriented X3 Results - Labs CBC & BMP: 01/07/17 06:06 01/07/17 06:06 - Impressions Sinus rhythm with augmented QRS voltage and discordant T waves across anterior precordial leads. Specialty Discharge - Follow Up or Referrals Follow up with: Nani Hanna MD [Physician] - 2 Weeks Kimberly Pham DO [Physician] - 1 Month
[2017-01-07] MEDS: CARVEDILOL 3.125 MG TABLET PO SCH ×3 (07:04→21:12)
[2017-01-07] MEDS: ASPIRIN EC 81 MG TABLET PO SCH ×2 (07:04→08:05)
[2017-01-07] MEDS: ENOXAPARIN 40 MG/0.4 ML SYRINGE SUBCUT SCH ×2 (07:05→11:18)
[2017-01-07] MEDS ORDERED: NITROGLYCERIN DRIP 50 MG/250 ML BOTTLE IV ONE (07:13)
[2017-01-07] MEDS ORDERED: HEPARIN/NACL 0.9% 2 UNITS/ML 1,000 ML IV ONE (07:13)
[2017-01-07] MEDS ORDERED: LIDOCAINE 1% 20 ML VIAL ONE (07:13)
[2017-01-07] MEDS ORDERED: VERAPAMIL 5 MG/2 ML VIAL ONE (07:13)
--- NOTE | 2017-01-07 07:18 | History and Physical Update ---
Sedation H&P Update - History and Physical H&P was reviewed, the patient examined and there: are no changes in the patients condition since last H&P was completed. - Dictation Physical: refer to H&P completed by admitting physician - Physical Exam Mental Status: alert and oriented Heart: regular rate and rhythm Lung: clear to auscultation Abdomen: within normal limits Vitals: within normal limits - Sedation Plan for Sedation: moderate Patient Consent: Procedure disscussed with patient and patinet has consented., Risks and benefits were discussed with patient,including infection,, bleeding, injury to surrounding structures, seizure, temporary nerve, Patient understands and accepts potential risks/benefits and agrees to, proceed. ASA Class: III Airway Assessment: Class I: Soft palate, uvula, fauces, pillars visible
[2017-01-07] MEDS ORDERED: MIDAZOLAM 2 MG/2 ML VIAL ONE ×2 (07:23→07:35)
[2017-01-07] MEDS ORDERED: fentaNYL 100 MCG/2 ML VIAL ONE (07:23)
[2017-01-07 07:27] LABS: Calcium 8.9 MG/DL (8.5-10.1); Magnesium 1.8 MG/DL (1.8-2.4); Potassium 4.4 MMOL/L (3.5-5.1)
[2017-01-07] MEDS ORDERED: HEPARIN/NACL 0.9% 2 UNITS/ML 500 ML IV ONE (07:31)
[2017-01-07] MEDS ORDERED: ENOXAPARIN 60 MG/0.6 ML SYRINGE ONE (07:37)
[2017-01-07 07:38] LABS: Albumin 2.5 G/DL (3.4-5.0); Bilirubin,Total 0.7 MG/DL (0.2-1.0); Calcium 9.1 MG/DL (8.5-10.1); Osmolality,Calculated 268.1 MOS/KG (273-304); Phosphorous 4.2 MG/DL (2.5-4.9); Potassium 4.4 MMOL/L (3.5-5.1)
--- NOTE | 2017-01-07 07:58 | Cardiac Catheterization ---
Date of Procedure:: 01/07/17 Pre-op Diagnosis: Cardiomyopathy, newly diagnosed Post-op diagnosis: other (Nonischemic cardiomyopathy, compensated end-diastolic pressure of 14) Procedure: Procedures: 1. Left heart catheterization resting hemodynamics 2. Selective left and right coronary angiography After signed an informed consent was obtained, the patient was prepped and draped in standard fashion for right radial access. Time out was recorded. 0.5 mL of 1% lidocaine were infiltrated in the skin and subcutaneous tissue overlying the right radial artery and Seldinger technique was utilized with a Angiocath to obtain access to the right radial artery. A Otus LabsumVestorly glide wire was then advanced into the midforearm under fluoroscopic guidance. The Angiocath was removed and a 6 [place] Terumo glide sheath was placed over the Glidewire. The sheath was aspirated and flushed and then 5 mg of verapamil and 200 g of nitroglycerin were given through the sheath. At this time an 035 J-wire was used to guide a Annada 6 [place] catheter into the central aorta across the aortic valve and into the ventricle. A 10 mL injection of contrast was used for ventriculography in the STEVENS projection. Pressure measurements and pullback measurements were obtained. The Annada catheter was then used to engage the left main coronary artery and multiple orthogonal views of the left system were obtained. The catheter then was torqued into the right coronary artery and orthogonal views of the right system were obtained. The catheter was then exchanged over the wire. The sheath was aspirated and flushed. The well testing operator reviewed the films. And a TR band was placed over the glide sheath and used for hemostasis. Total contrast exposure 45 cc of omnipaque Total x-ray exposure: 3.6 min fluoroscopy time and 57 mGy air Kerma Findings: 1. EF not assessed. recently demonstrated low by TTE 2. Hemodynamics LV: 88/2 EDP:14 Ao:84/62 3. Left main: Angiographically normal 4: Left anterior descending artery: Angiographically normal large reaches the apex and extends the inferior ventricular myocardium 5: Left circumflex artery: Angiographically normal with contribution to the posterior lateral wall this in conjunction with the LAD make the left system dominant 6: Right coronary artery: This vessel has an anterior takeoff. It is nondominant and supplies very little to the left ventricular myocardium Assessment: 1. Non-ischemic cardiomyopathy currently compensated with end-diastolic pressure of 14 Plan: 1. Therapeutic lifestyle changes. 2. Alcohol cessation and other therapeutic lifestyle changes 3. Monitor for additional 2 hours for radial access if no complications may be discharged home and follow-up with me in 1 month. Nothing further to add at this time and I will sign off. I discussed with the patient and his fiance about the importance of alcohol cessation and other medical pharmacologic therapies. Will reevaluate in 3 months for possibility of ICD. Implants: none Anesthesia: moderate conscious sedation Surgeon / Physician: Kimberly Pham Licensed Investment Sales Assistant: none Estimated blood loss: none Specimens: none sent Condition: stable Disposition: floor - Medications / Follow-up Referrals: Nani Hanna MD [Physician] - 2 Weeks
[2017-01-07] MEDS: chlordiazePOXIDE 10 MG CAPSULE PO SCH ×4 (08:06→21:46)
[2017-01-07] MEDS: SPIRONOLACTONE 25 MG TABLET PO SCH (08:25)
[2017-01-07] MEDS: THIAMINE 100 MG TABLET PO SCH (08:25)
[2017-01-07] MEDS: MULTIVITAMIN (BEROCCA) TABLET PO SCH (08:25)
[2017-01-07] MEDS: ITRACONAZOLE 100 MG CAPSULE PO SCH ×2 (08:25→21:12)
[2017-01-07] MEDS: DOCUSATE SODIUM 100 MG CAPSULE PO PRN (08:25)
[2017-01-07] MEDS: PANTOPRAZOLE 40 MG TABLET PO SCH (08:25)
[2017-01-07] MEDS: FUROSEMIDE 40 MG TABLET PO SCH (08:25)
--- NOTE | 2017-01-07 11:36 | Event Note ---
Saw patient post cath. Right radial site without evidence of hematoma. Radial band intact per protocol.
[2017-01-08] MEDS: SODIUM CHLORIDE 0.45% 1,000 ML IV SCH ×2 (03:45→15:26)
[2017-01-08 07:19] LABS: Calcium 8.3 MG/DL (8.5-10.1); Magnesium 1.7 MG/DL (1.8-2.4); Potassium 3.4 MMOL/L (3.5-5.1)
--- NOTE | 2017-01-08 08:29 | Hospitalist Progress Note ---
Assessment and Plan (1) Pulmonary histoplasmosis Status: Chronic Assessment and plan: Evaluated as inpatient discharge 30 December 2016. Outpatient noncompliance with antifungal therapy due to cost concerns. Current Visit: Yes (2) Cardiomyopathy Status: Chronic Assessment and plan: Angiographially normal coronary arteries at catheterization 07 January. Current Visit: Yes Hospitalist: Subjective Interval history: 41-year-old male who had presented earlier in the month with histoplasmosis urine and serum positivity with chest x-ray showing cavitary pneumonia. An echocardiogram done at that time showed an ejection fraction of 10%; patient underwent cardiac catheterization yesterday showing no obstructive coronary artery disease. Patient was noncompliant as an outpatient with his original recommendation for itraconazole treatment. Likewise he had not complied with his treatment for LV systolic dysfunction. We will need to correlate with aids social worker regarding his medications at their initial note indicates a fairly high cost the patient for itraconazole alone not including his current cardiac medications. Exam - Constitutional Vitals: Period Temp Pulse Resp BP Sys/Zayas Pulse Ox Last 24 Hr 97.2 F-98.5 F 78-100 16-20 95-103/62-78 91-96 General appearance: under weight - Respiratory Respiratory exam: Present: clear to auscultation bilaterally. Absent: rales, rhonchi, wheezes - Cardiovascular Cardiovascular exam: Present: regular rate and rhythm - GI/Abdominal GI/Abdominal exam: Present: normal bowel sounds. Absent: distended, tenderness - Extremities Exam Extremities exam: Absent: edema - Neurological Exam Neurological exam: Present: alert, oriented X3 Results - Labs CBC & BMP: 01/07/17 06:06 01/08/17 05:41 Quality Measures - VTE Contraindication to Pharmacological VTE Prophylaxis: Already on Theraputic Agent , No Prophylaxis Needed Specialty Discharge - Follow Up or Referrals Follow up with: Nani Hanna MD [Physician] - 2 Weeks Kimberly Pham DO [Physician] - 1 Month
[2017-01-08] MEDS: ITRACONAZOLE 100 MG CAPSULE PO SCH ×2 (09:24→20:36)
[2017-01-08] MEDS: ASPIRIN EC 81 MG TABLET PO SCH (09:25)
[2017-01-08] MEDS: POTASSIUM CHLORIDE 20 MEQ TABLET PO SCH ×3 (09:25→18:35)
[2017-01-08] MEDS: chlordiazePOXIDE 10 MG CAPSULE PO SCH ×4 (09:25→20:36)
[2017-01-08] MEDS: PANTOPRAZOLE 40 MG TABLET PO SCH (09:25)
[2017-01-08] MEDS: SPIRONOLACTONE 25 MG TABLET PO SCH (09:26)
[2017-01-08] MEDS: CARVEDILOL 3.125 MG TABLET PO SCH ×2 (09:26→20:37)
[2017-01-08] MEDS: LISINOPRIL 2.5 MG TABLET PO SCH (09:26)
[2017-01-08] MEDS: FUROSEMIDE 40 MG TABLET PO SCH (09:26)
[2017-01-08] MEDS: THIAMINE 100 MG TABLET PO SCH (09:26)
[2017-01-08] MEDS: MULTIVITAMIN (BEROCCA) TABLET PO SCH (09:26)
[2017-01-08] MEDS: ENOXAPARIN 40 MG/0.4 ML SYRINGE SUBCUT SCH (12:37)
[2017-01-08] MEDS: MAGNESIUM SULF RIDER 2 GM in PREMIX 1 EACH IV PRN (15:27)
[2017-01-09] MEDS: SODIUM CHLORIDE 0.45% 1,000 ML IV SCH (01:28)
[2017-01-09 07:24] VITALS: BP 126/76
[2017-01-09] MEDS: ASPIRIN EC 81 MG TABLET PO SCH ×2 (07:48→08:17)
[2017-01-09] MEDS: FUROSEMIDE 40 MG TABLET PO SCH ×2 (07:48→08:17)
[2017-01-09] MEDS: LISINOPRIL 2.5 MG TABLET PO SCH ×2 (07:48→08:17)
[2017-01-09] MEDS: ITRACONAZOLE 100 MG CAPSULE PO SCH ×2 (07:48→08:17)
[2017-01-09] MEDS: THIAMINE 100 MG TABLET PO SCH ×2 (07:49→08:18)
[2017-01-09] MEDS: SPIRONOLACTONE 25 MG TABLET PO SCH ×2 (07:49→08:16)
[2017-01-09] MEDS: chlordiazePOXIDE 10 MG CAPSULE PO SCH ×2 (07:49→08:17)
[2017-01-09] MEDS: MULTIVITAMIN (BEROCCA) TABLET PO SCH ×2 (07:49→08:17)
[2017-01-09] MEDS: DOCUSATE SODIUM 100 MG CAPSULE PO PRN (07:50)
[2017-01-09] MEDS: CARVEDILOL 3.125 MG TABLET PO SCH ×2 (07:50→08:17)
[2017-01-09] MEDS: PANTOPRAZOLE 40 MG TABLET PO SCH ×2 (07:50→08:17)
--- NOTE | 2017-01-09 08:55 | Discharge Summary ---
Hospital Course - Hospital Course Hospital Course: This is a chronically ill 41-year-old male that presented to the ED at [facility] on the morning of January 04, 2017 for evaluation of shortness of breath. Patient has a medical history significant of hypertension , nonischemic cardiomyopathy with an ejection fraction of 10%, alcohol addiction , nicotine addiction, pulmonary histoplasmosis, and seizure disorder. The patient reports no significant surgical history at the time of ED presentation. Apparently, the patient was recently discharged from [facility] on December 30, 2016 for symptoms similar in nature. During the clinical encounter, the patient was subsequently diagnosed with pulmonary histoplasmosis and alcoholic cardiomyopathy. The patient was discharged on itraconazole for the treatment of his pulmonary histoplasmosis however, the patient failed to obtain the medication due to financial constraints. His symptoms became severe in nature prompting him to present to the ED for further evaluation. The patient was assessed at the time of ED presentation. The patient was noted to be tachycardic with a heart rate at 100 and hypertensive with a blood pressure noted at 138/100. Labs were obtained which were significant for sodium 135, glucose 108, calculated osmolality 268.1, AST 52, alkaline phosphatase 119, BNP 3947, and albumin 2.7. Chest x-ray significant for cardiomegaly, right basilar atelectatic change, infiltrates, and low-volume effusion which was suggested secondary to mild cardiac decompensation or pneumonic infiltrate and parapneumonic effusion. The patient was subsequently admitted to the hospitalist service for continuation of care. Itraconazole was initiated at the time of admission. Due to the severity of the patient's cardiovascular disease, a cardiology consultation was requested. Infectious disease was also consulted to assist in the management of the patient 's pulmonary histoplasmosis. The patient was evaluated and recommendations were given. On January 07, 2017, the patient underwent elective heart catheterization was significant for nonischemic cardiomyopathy currently compensated with end-diastolic pressure of 14. The patient's condition slowly improved. Physical and Occupational Therapy consultations were requested. The patient was evaluated and recommendations were given. The patient's condition is stable. He has not experienced any significant overnight events. Today, we feel that he is indeed appropriate for discharge to follow-up with his primary care physician, cardiology, and infectious disease as indicated. Spoke with the patient in great detail regarding the need for medical compliance. In addition, discussed with patient the merits of alcohol and tobacco cessation. The patient will be discharged on itraconazole 200 mg by mouth twice daily. - Time spent with patient Time with patient DS: Greater than 30 minutes Diagnosis - Discharge Diagnosis (1) Alcohol abuse Status: Chronic (2) Cardiomyopathy Status: Chronic (3) Nicotine addiction Status: Chronic (4) Abnormal liver function test Status: Chronic (5) Hypokalemia Status: Acute (6) Hypomagnesemia Status: Acute (7) Pulmonary histoplasmosis Status: Chronic Specialty Discharge - Follow Up or Referrals Follow up with: Nani Hanna MD [Physician] - 2 Weeks Kimberly Pham DO [Physician] - 1 Month - Speciality Discharge Instructions Cardiology Instructions: Continue to take all medications as ordered. Follow- up with cardiology as directed. Hospitalist Instructions: Follow-up with your primary care physician, cardiology , and infectious disease as directed. Continue to take all medications as ordered. Refrain from alcohol and tobacco consumption. Infectious Disease Instructions: Continue to take itraconazole by mouth twice daily as ordered. Follow-up with infectious disease as directed. Discharge Plan - Discharge Medications New Aspirin EC Tab 81 mg PO DAILY #30 tablet Itraconazole Cap [Sporanox Cap] 200 mg PO BID #60 capsule Magnesium Oxide 400 mg PO DAILY #30 tablet Multivitamin (Berocca) [Berocca] 1 tablet PO DAILY #30 Potassium Chloride Cap/Tab [K Dur] 10 meq PO DAILY #60 tablet Spironolactone [Aldactone] 25 mg PO DAILY #30 tablet Thiamine Tab [Vitamin B1 Tab] 100 mg PO DAILY #30 tablet Furosemide Tab [Lasix Tab] 40 mg PO DAILY #30 tablet Pantoprazole Tab [Protonix Tab] 40 mg PO DAILY #30 tablet guaiFENesin/DM ER 600-30 [Mucinex Dm 600-30 MG] 1 tablet PO BID PRN #60 tablet PRN Reason: Congestion Continue Lisinopril [Prinivil] 2.5 mg PO DAILY #30 tablet Carvedilol [Coreg] 3.125 mg PO BID #60 tablet Lisinopril [Prinivil] 2.5 mg PO DAILY #30 tablet Carvedilol [Coreg] 3.125 mg PO BID #60 tablet - Follow Up or Referral Follow Up: Nani Hanna MD [Physician] - 2 Weeks Kimberly Pham DO [Physician] - 1 Month - Forms/Instructions Instructions: Spironolactone (By mouth), Lisinopril (By mouth), Itraconazole ( By mouth), Carvedilol (By mouth), Coronary Artery Disease (GEN), Left Heart Catheterization (DC), Heart Healthy Diet (GEN), Frankie Post Cardiac Catheterization Instructions -Radial Artery Exam - Constitutional Vitals: Period Temp Pulse Resp BP Sys/Zayas Pulse Ox Last 24 Hr 97.6 F-98.2 F 88-117 16-18 92-126/64-93 93-99 General appearance: no acute distress, under weight - Head Head exam: Present: normal inspection, normocephalic, atraumatic - Eye Eye exam: Present: EOMI, conjunctival injection, nystagmus Pupils: Present: RUCHI, normal accommodation - ENT ENT exam: Present: normal exam, normal external ear exam, normal oropharynx - Neck Neck exam: Present: normal inspection. Absent: lymphadenopathy, meningismus, thyromegaly - Respiratory Respiratory exam: Present: clear to auscultation bilaterally. Absent: rales, rhonchi, stridor, wheezes - Cardiovascular Cardiovascular exam: Present: regular rate and rhythm. Absent: carotid bruit, diastolic murmur, gallop, JVD, rubs, systolic murmur - GI/Abdominal GI/Abdominal exam: Present: normal bowel sounds, soft - Extremities Exam Extremities exam: Present: normal inspection, normal capillary refill, full ROM. Absent: edema - Back Exam Back exam: Present: normal inspection - Neurological Exam Neurological exam: Present: alert, oriented X3 - Psychiatric Psychiatric exam: Present: flat affect - Skin Skin exam: Present: normal color, warm, dry Discharge Results Procedures and tests throughout hospitalization: Pending Orders 01/07/17 06:31 CL heart Routine DS: Provider Date of admission: 01/04/17 08:14 Primary care physician: . No PCP Attending physician on admission: Zackery Sherwood MD Consults: 01/04/17 08:39 Consult to Physician [CONS] Routine Comment: histoplasmosis Consulting Provider: Nani Hanna When should Consulting Provider be notified: Now Person Notified: Lashell Date Notified: 01/04/17 Time Notified: 11:31 01/04/17 08:42 Consult to Physical Therapy [CONS] Routine Reason for Physical Therapy: Evaluate and Treat 01/04/17 08:53 Consult to Case Mgmt/Social Srvs [CONS] Routine Reason for Case Mgmt/Social Srvs: Swingbed/SNF/Custodial Other Consult Comment: help w money for medicine 01/05/17 11:27 Consult to Physician [CONS] Routine Comment: Severe cardiomyopathy Consulting Provider: Ankit Gilbert When should Consulting Provider be notified: Now Person Notified: Teri Date Notified: 01/05/17 Time Notified: 11:34 01/07/17 07:50 Consult to Cardiac Rehabilitation [CONS] Routine Reason for Cardiac Rehabilitation: Risk Factor Modification Other Consult Comment: Evaluate and recommend Discharging clinician: Nain Chairez CHIP PERSON
== END 2017-01-09 12:40 | disposition home or self-care (01) | DRG 286 ==
LOC: N.ED 06:01 → N.EDINP 08:14 → SUATTDRO 08:14 → N.EDINP 10:59 → N.5E 11:10
PROVIDERS: ADMIT Internal Medicine; ATTEND Internal Medicine
PROC: CLCCHCL (ICD-10-PCS; 2017-01-07 09:45)

== ENCOUNTER 2017-05-30 22:56 | Inpatient (IN) ==
[2017-05-31 02:28] LABS: Basophils % 0.4 % (0.0-0.8); Eosinophils % 0.2 % (0.00-10.9); Hematocrit 45.3 VOL% (42.0-52.0); Hemoglobin 15.8 GM/DL (14.0-18.0); Immature Granulocytes % 0.7 %; Immature Granulocytes Absolute 0.04 #; Lymphocytes # 1.6 10*3/uL (1.4-4.0); Lymphocytes % 27.9 % (21.2-54.2); Mean Corpuscular HGB Conc 34.9 GM/DL (32-36); Mean Corpuscular Hemoglobin 33 PG (27-34); Mean Corpuscular Volume 94.6 FL (87-102); Mean Platelet Volume 12.7 FL (9.6-12.0); Monocytes # 0.2 10*3/uL (0.11-0.8); Monocytes % 4.1 % (1.7-12.7); NRBC # 0.03 10*3/uL; Neutrophils # 3.8 10*3/uL (1.4-7.4); Neutrophils % 66.7 % (38.7-73.9); Red Blood Count 4.79 MC/CUMM (3.8-5.5); Red Cell Distribution Width 12.9 % (9.3-17.3); White Blood Count 5.7 T/CUMM (4-12)
[2017-05-31 02:30] LABS: Platelet Count 61 T/CUMM (130-400)
[2017-05-31 02:51] LABS: Albumin 2.7 G/DL (3.4-5.0); Bilirubin,Total 1.1 MG/DL (0.2-1.0); Calcium 8.1 MG/DL (8.5-10.1); Magnesium 1.7 MG/DL (1.8-2.4); Osmolality,Calculated 259.2 MOS/KG (273-304); Potassium 4.2 MMOL/L (3.5-5.1); Total Protein 6.7 G/DL (6.4-8.3)
[2017-05-31 02:55] LABS: Troponin I Only 0.095 NG/ML (0.00-0.045)
[2017-05-31 03:05] LABS: Ovalocytes 2+; Platelet Estimate Decreased
[2017-05-31] MEDS: DOBUTamine 500 MG/250 ML PREMIX IV SCH ×2 (03:32→18:39)
[2017-05-31] MEDS ORDERED: MAGNESIUM SULF RIDER 2 GM in PREMIX 1 EACH IV PRN (04:07)
[2017-05-31] MEDS ORDERED: MAGNESIUM SULF RIDER 4 GM in PREMIX 1 EACH IV PRN (04:07)
[2017-05-31] MEDS ORDERED: ACETAMINOPHEN 325 MG TABLET PO PRN (04:07)
[2017-05-31] MEDS ORDERED: ZALEPLON 5 MG CAPSULE PO PRN (04:07)
[2017-05-31] MEDS ORDERED: ONDANSETRON 4 MG/2 ML VIAL IV PRN (04:07)
[2017-05-31] MEDS ORDERED: guaiFENesin/DM ER 600-30 MG TABLET PO PRN (04:20)
[2017-05-31] MEDS ORDERED: LORazepam 2 MG/1 ML VIAL IV PRN (04:36)
[2017-05-31] MEDS: ENOXAPARIN 40 MG/0.4 ML SYRINGE SUBCUT SCH (07:00)
[2017-05-31 07:35] LABS: Basophils % 0.4 % (0.0-0.8); Hematocrit 40.5 VOL% (42.0-52.0); Hemoglobin 14.2 GM/DL (14.0-18.0); Immature Granulocytes % 0.8 %; Immature Granulocytes Absolute 0.04 #; Lymphocytes # 1.3 10*3/uL (1.4-4.0); Lymphocytes % 26.2 % (21.2-54.2); Mean Corpuscular HGB Conc 35.1 GM/DL (32-36); Mean Corpuscular Hemoglobin 33 PG (27-34); Mean Corpuscular Volume 93.8 FL (87-102); Mean Platelet Volume 12.5 FL (9.6-12.0); Monocytes # 0.2 10*3/uL (0.11-0.8); Monocytes % 4.6 % (1.7-12.7); Neutrophils # 3.4 10*3/uL (1.4-7.4); Platelet Count 48 T/CUMM (130-400); Red Blood Count 4.32 MC/CUMM (3.8-5.5); Red Cell Distribution Width 12.9 % (9.3-17.3)
[2017-05-31 07:58] LABS: Albumin 2.3 G/DL (3.4-5.0); Calcium 7.8 MG/DL (8.5-10.1); Osmolality,Calculated 264.7 MOS/KG (273-304); Potassium 3.6 MMOL/L (3.5-5.1); Total Protein 5.7 G/DL (6.4-8.3)
[2017-05-31 08:02] LABS: Hypochromasia 2+; Lymphocytes 11 % (20-55); Platelet Estimate Decreased; Segmented Neutrophils 87 % (50-85); Total Cells Counted 100
[2017-05-31] MEDS ORDERED: PANTOPRAZOLE 40 MG TABLET PO ONE (08:57)
[2017-05-31] MEDS ORDERED: ASPIRIN CHEW 81 MG TABLET PO ONE (08:57)
[2017-05-31] MEDS ORDERED: MAGNESIUM OXIDE 400 MG TABLET ONE (08:57)
[2017-05-31] MEDS ORDERED: FUROSEMIDE 40 MG TABLET ONE (08:57)
[2017-05-31] MEDS ORDERED: FUROSEMIDE 40 MG TABLET PO SCH (09:00)
[2017-05-31] MEDS ORDERED: NON-FORMULARY MEDICATION (Vitamin B Complex [Vitamin B Complex] 1 EACH) PO SCH (09:00)
[2017-05-31] MEDS ORDERED: CARVEDILOL 6.25 MG TABLET PO SCH (09:00)
[2017-05-31] MEDS: MAGNESIUM OXIDE 400 MG TABLET PO SCH (09:01)
[2017-05-31] MEDS: ASPIRIN CHEW 81 MG TABLET PO SCH (09:01)
[2017-05-31] MEDS: LISINOPRIL 5 MG TABLET PO SCH (09:02)
[2017-05-31] MEDS: PANTOPRAZOLE 40 MG TABLET PO SCH (09:02)
[2017-05-31] MEDS: POTASSIUM GLUCONATE 500 MG TABLET PO SCH (09:02)
[2017-05-31] MEDS: SPIRONOLACTONE 25 MG TABLET PO SCH (09:03)
[2017-05-31] MEDS: FOLIC ACID 1 MG TABLET PO SCH (09:03)
[2017-05-31] MEDS: MULTIVITAMIN (BEROCCA) TABLET PO SCH (09:03)
[2017-05-31] MEDS ORDERED: FUROSEMIDE 100 MG/10 ML VIAL ONE (10:34)
[2017-05-31] MEDS: FUROSEMIDE 40 MG/4 ML VIAL IV SCH ×2 (10:36→20:28)
[2017-05-31 15:12] LABS: Barbiturates Screen,Urine Negative (Negative); Benzodiazepines Screen,Urine Negative (Negative); Cannabinoid Screen,Urine Negative (Negative); Opiate Screen,Urine Negative (Negative); Phencyclidine Screen,Urine Negative (Negative)
[2017-05-31] MEDS: CARVEDILOL 3.125 MG TABLET PO SCH (20:28)
[2017-06-01] MEDS: DOBUTamine 500 MG/250 ML PREMIX IV SCH ×3 (01:42→09:35)
[2017-06-01 05:35] LABS: Basophils % 0.4 % (0.0-0.8); Eosinophils % 0.4 % (0.00-10.9); Hematocrit 42.2 VOL% (42.0-52.0); Immature Granulocytes % 0.5 %; Immature Granulocytes Absolute 0.03 #; Lymphocytes # 1.4 10*3/uL (1.4-4.0); Lymphocytes % 24.9 % (21.2-54.2); Mean Corpuscular HGB Conc 35.5 GM/DL (32-36); Mean Corpuscular Hemoglobin 33 PG (27-34); Mean Platelet Volume 12.8 FL (9.6-12.0); Monocytes # 0.3 10*3/uL (0.11-0.8); Monocytes % 5.3 % (1.7-12.7); Neutrophils # 3.9 10*3/uL (1.4-7.4); Neutrophils % 68.5 % (38.7-73.9); Platelet Count 55 T/CUMM (130-400); Red Blood Count 4.54 MC/CUMM (3.8-5.5); Red Cell Distribution Width 12.7 % (9.3-17.3); White Blood Count 5.7 T/CUMM (4-12)
[2017-06-01 05:43] LABS: Calcium 7.6 MG/DL (8.5-10.1); Magnesium 1.4 MG/DL (1.8-2.4); Osmolality,Calculated 266.5 MOS/KG (273-304); Potassium 3.3 MMOL/L (3.5-5.1)
[2017-06-01 06:08] LABS: Hypochromasia 1+
[2017-06-01 06:09] LABS: Microcytosis Slight; Platelet Estimate Decreased
[2017-06-01] MEDS: ENOXAPARIN 40 MG/0.4 ML SYRINGE SUBCUT SCH (09:00)
[2017-06-01] MEDS ORDERED: POTASSIUM CHLORIDE RIDER 20 MEQ in PREMIX 1 EACH IV PRN (09:14)
[2017-06-01] MEDS ORDERED: POTASSIUM CHLORIDE RIDER 10 MEQ in PREMIX 1 EACH IV PRN (09:14)
[2017-06-01] MEDS: FUROSEMIDE 40 MG/4 ML VIAL IV SCH ×2 (09:21→20:18)
[2017-06-01] MEDS: FOLIC ACID 1 MG TABLET PO SCH (09:22)
[2017-06-01] MEDS: LISINOPRIL 5 MG TABLET PO SCH ×2 (09:22→09:45)
[2017-06-01] MEDS: MAGNESIUM OXIDE 400 MG TABLET PO SCH (09:22)
[2017-06-01] MEDS: ASPIRIN CHEW 81 MG TABLET PO SCH (09:22)
[2017-06-01] MEDS: POTASSIUM GLUCONATE 500 MG TABLET PO SCH (09:22)
[2017-06-01] MEDS: MULTIVITAMIN (BEROCCA) TABLET PO SCH (09:22)
[2017-06-01] MEDS: PANTOPRAZOLE 40 MG TABLET PO SCH (09:22)
[2017-06-01] MEDS: SPIRONOLACTONE 25 MG TABLET PO SCH (09:22)
[2017-06-01] MEDS: CARVEDILOL 3.125 MG TABLET PO SCH ×2 (09:22→20:18)
[2017-06-01] MEDS ORDERED: DOBUTamine 500 MG/250 ML PREMIX IV ONE (09:33)
[2017-06-01] MEDS ORDERED: POTASSIUM CHLORIDE INJ 40 MEQ in SODIUM CHLORIDE 0.9% 500 ML IV SCH (10:30)
[2017-06-01] MEDS ORDERED: SKIN HEALING OINT (AQUAPHOR) 50 GM TUBE TOP PRN (11:49)
[2017-06-02 05:00] LABS: Basophils % 0.5 % (0.0-0.8); Eosinophils % 0.1 % (0.00-10.9); Hematocrit 45.6 VOL% (42.0-52.0); Hemoglobin 15.9 GM/DL (14.0-18.0); Immature Granulocytes % 0.8 %; Immature Granulocytes Absolute 0.06 #; Lymphocytes # 1.8 10*3/uL (1.4-4.0); Lymphocytes % 23.3 % (21.2-54.2); Mean Corpuscular HGB Conc 34.9 GM/DL (32-36); Mean Corpuscular Hemoglobin 33 PG (27-34); Mean Platelet Volume 12.8 FL (9.6-12.0); Monocytes # 0.5 10*3/uL (0.11-0.8); Neutrophils # 5.3 10*3/uL (1.4-7.4); Neutrophils % 69.3 % (38.7-73.9); Red Blood Count 4.85 MC/CUMM (3.8-5.5); Red Cell Distribution Width 12.6 % (9.3-17.3); White Blood Count 7.6 T/CUMM (4-12)
[2017-06-02 05:05] LABS: Platelet Count 76 T/CUMM (130-400)
[2017-06-02 05:13] LABS: INR 1.3; PT Patient Result 13.5 SECS; Partial Thromboplastin Time 31.2 SECS (0-40)
[2017-06-02 05:24] LABS: Platelet Estimate Decreased
[2017-06-02 05:27] LABS: Albumin 2.3 G/DL (3.4-5.0); Calcium 8.3 MG/DL (8.5-10.1); Osmolality,Calculated 267.4 MOS/KG (273-304); Potassium 3.8 MMOL/L (3.5-5.1)
[2017-06-02] MEDS: FUROSEMIDE 40 MG/4 ML VIAL IV SCH (08:58)
[2017-06-02] MEDS: POTASSIUM GLUCONATE 500 MG TABLET PO SCH (08:59)
[2017-06-02] MEDS: ASPIRIN CHEW 81 MG TABLET PO SCH (08:59)
[2017-06-02] MEDS: CARVEDILOL 3.125 MG TABLET PO SCH ×2 (08:59→20:57)
[2017-06-02] MEDS: FOLIC ACID 1 MG TABLET PO SCH (08:59)
[2017-06-02] MEDS: LISINOPRIL 5 MG TABLET PO SCH (08:59)
[2017-06-02] MEDS: MULTIVITAMIN (BEROCCA) TABLET PO SCH (08:59)
[2017-06-02] MEDS: SPIRONOLACTONE 25 MG TABLET PO SCH (08:59)
[2017-06-02] MEDS: PANTOPRAZOLE 40 MG TABLET PO SCH (08:59)
[2017-06-02] MEDS: MAGNESIUM OXIDE 400 MG TABLET PO SCH (09:19)
[2017-06-02] MEDS: FUROSEMIDE 80 MG TABLET PO SCH (16:19)
[2017-06-03 06:13] LABS: Basophils % 0.4 % (0.0-0.8); Eosinophils % 0.3 % (0.00-10.9); Hematocrit 43.4 VOL% (42.0-52.0); Hemoglobin 15.1 GM/DL (14.0-18.0); Immature Granulocytes % 0.9 %; Immature Granulocytes Absolute 0.06 #; Lymphocytes # 2.3 10*3/uL (1.4-4.0); Lymphocytes % 32.3 % (21.2-54.2); Mean Corpuscular HGB Conc 34.8 GM/DL (32-36); Mean Corpuscular Hemoglobin 33 PG (27-34); Mean Corpuscular Volume 94.6 FL (87-102); Mean Platelet Volume 13.4 FL (9.6-12.0); Monocytes # 0.4 10*3/uL (0.11-0.8); Monocytes % 6.3 % (1.7-12.7); Neutrophils # 4.2 10*3/uL (1.4-7.4); Neutrophils % 59.8 % (38.7-73.9); Platelet Count 81 T/CUMM (130-400); Red Blood Count 4.59 MC/CUMM (3.8-5.5); Red Cell Distribution Width 12.9 % (9.3-17.3)
[2017-06-03 06:44] LABS: Band Neutrophils 1 % (0-10); Eosinophils 2 % (0-10); Giant Platelets Few; Hypochromasia 1+; Lymphocytes 20 % (20-55); Microcytosis Slight; Ovalocytes Slight; Platelet Estimate Decreased; Segmented Neutrophils 70 % (50-85); Total Cells Counted 100
[2017-06-03 06:55] LABS: Calcium 7.7 MG/DL (8.5-10.1); Osmolality,Calculated 271.2 MOS/KG (273-304); Potassium 3.2 MMOL/L (3.5-5.1)
[2017-06-03 07:09] LABS: Calcium 7.9 MG/DL (8.5-10.1); Magnesium 1.7 MG/DL (1.8-2.4); Osmolality,Calculated 271.2 MOS/KG (273-304); Potassium 3.2 MMOL/L (3.5-5.1)
[2017-06-03] MEDS: FOLIC ACID 1 MG TABLET PO SCH (08:25)
[2017-06-03] MEDS: PANTOPRAZOLE 40 MG TABLET PO SCH (08:25)
[2017-06-03] MEDS: ASPIRIN CHEW 81 MG TABLET PO SCH (08:25)
[2017-06-03] MEDS: FUROSEMIDE 80 MG TABLET PO SCH (08:25)
[2017-06-03] MEDS: SPIRONOLACTONE 25 MG TABLET PO SCH (08:25)
[2017-06-03] MEDS: MULTIVITAMIN (BEROCCA) TABLET PO SCH (08:25)
[2017-06-03] MEDS: LISINOPRIL 5 MG TABLET PO SCH (08:25)
[2017-06-03] MEDS: MAGNESIUM OXIDE 400 MG TABLET PO SCH (08:25)
[2017-06-03] MEDS: POTASSIUM GLUCONATE 500 MG TABLET PO SCH (08:25)
[2017-06-03] MEDS: CARVEDILOL 3.125 MG TABLET PO SCH (08:25)
[2017-06-03 11:17] VITALS: BP 102/57
[2017-06-03] MEDS ORDERED: POTASSIUM CHLORIDE 20 MEQ TABLET PO ONE (13:14)
== END 2017-06-03 14:50 | disposition home or self-care (01) | DRG 194 ==
LOC: N.ED 22:56 → N.EDINP 05-31 14:12 → N.CC 05-31 15:33

== ENCOUNTER 2017-09-10 17:33 | Inpatient (IN) ==
[2017-09-10 18:13] LABS: Basophils # 0.1 10*3/uL (0.0-0.2); Basophils % 1.1 % (0.0-0.8); Eosinophils % 0.4 % (0.00-10.9); Hematocrit 42.6 VOL% (42.0-52.0); Hemoglobin 14.2 GM/DL (14.0-18.0); Immature Granulocytes % 0.9 %; Immature Granulocytes Absolute 0.08 #; Lymphocytes # 2.6 10*3/uL (1.4-4.0); Lymphocytes % 28.6 % (21.2-54.2); Mean Corpuscular HGB Conc 33.3 GM/DL (32-36); Mean Corpuscular Hemoglobin 32 PG (27-34); Mean Corpuscular Volume 96.2 FL (87-102); Mean Platelet Volume 10.4 FL (9.6-12.0); Monocytes # 0.4 10*3/uL (0.11-0.8); Monocytes % 4.8 % (1.7-12.7); Neutrophils # 5.9 10*3/uL (1.4-7.4); Neutrophils % 64.2 % (38.7-73.9); Platelet Count 170 T/CUMM (130-400); Red Blood Count 4.43 MC/CUMM (3.8-5.5); Red Cell Distribution Width 15.5 % (9.3-17.3); White Blood Count 9.2 T/CUMM (4-12)
[2017-09-10 18:30] LABS: Albumin 2.6 G/DL (3.4-5.0); Calcium 8.6 MG/DL (8.5-10.1); Osmolality,Calculated 257.9 MOS/KG (273-304); Potassium 3.6 MMOL/L (3.5-5.1)
[2017-09-10] MEDS ORDERED: cefTRIAXone 1,000 MG in SODIUM CHLORIDE 0.9% 100 ML IV STA (18:32)
[2017-09-10] MEDS ORDERED: FUROSEMIDE 100 MG/10 ML VIAL IV STA (18:32)
[2017-09-10] MEDS ORDERED: ONDANSETRON 4 MG/2 ML VIAL IV STA (18:32)
[2017-09-10] MEDS ORDERED: methylPREDNISolone SOD SUC 125 MG/2 ML VIAL IV STA (18:32)
[2017-09-10] MEDS ORDERED: MAGNESIUM SULF RIDER 2 GM in PREMIX 1 EACH IV STA (18:45)
[2017-09-10] MEDS ORDERED: ALBUTEROL 2.5 MG/3 ML NEB RESP TX SCH (19:00)
[2017-09-10 19:06] LABS: INR 1.6; PT Patient Result 16.4 SECS
[2017-09-10] MEDS ORDERED: PROMETHAZINE 25 MG/1 ML VIAL IM PRN (19:19)
[2017-09-10] MEDS ORDERED: ACETAMINOPHEN 325 MG TABLET PO PRN (19:19)
[2017-09-10] MEDS ORDERED: ONDANSETRON 4 MG/2 ML VIAL IV PRN (19:19)
[2017-09-10] MEDS ORDERED: NICOTINE 21 MG/24 HR PATCH TRANSDERM PRN (19:19)
[2017-09-10] MEDS ORDERED: MAGNESIUM SULF RIDER 4 GM in PREMIX 1 EACH IV PRN (19:28)
[2017-09-10] MEDS ORDERED: POTASSIUM CHLORIDE RIDER 10 MEQ in PREMIX 1 EACH IV PRN (19:28)
[2017-09-10] MEDS ORDERED: MAGNESIUM SULF RIDER 2 GM in PREMIX 1 EACH IV PRN (19:28)
[2017-09-10] MEDS ORDERED: SODIUM CHLORIDE 0.9% 1,000 ML IV SCH (19:30)
[2017-09-10] MEDS ORDERED: ENOXAPARIN 40 MG/0.4 ML SYRINGE SUBCUT SCH (20:00)
[2017-09-10 20:01] LABS: Risk Ratio 5.44; Thyroid Stimulating Hormone 9.05 uIU/ml (0.358-3.74)
[2017-09-10] MEDS ORDERED: AZITHROMYCIN INJ 500 MG in SODIUM CHLORIDE 0.9% 250 ML IV STA (21:59)
[2017-09-10] MEDS: CARVEDILOL 3.125 MG TABLET PO SCH (23:16)
[2017-09-11] MEDS ORDERED: NOREPINEPHRINE 4 MG/4 ML VIAL IV ONE ×2 (00:23→00:25)
[2017-09-11] MEDS ORDERED: MIDAZOLAM 10 MG/2 ML VIAL ONE (00:29)
[2017-09-11] MEDS ORDERED: MIDAZOLAM 2 MG/2 ML VIAL IV ONE (00:30)
[2017-09-11] MEDS ORDERED: PROPOFOL 1,000 MG/100 ML BOTTLE IV ONE (00:30)
[2017-09-11] MEDS ORDERED: PHENYLEPHRINE DRIP 40 MG/250 ML PREMIX IV ONE ×3 (00:40→02:36)
[2017-09-11] MEDS: PHENYLEPHRINE DRIP 40 MG/250 ML PREMIX IV PRN ×4 (00:43→07:43)
[2017-09-11 00:53] LABS: ABG Base Excess -16.5 MMOL/L (-2.5-2.5); ABG HCO3 8.2 MMOL/L (20-26); ABG Oxygen Saturation 99.7 % (95-100); ABG PH 7.264 (7.35-7.45); ABG PO2 432.4 MM HG (80-95); ABG TCO2 8.8 MMOL/L (23-27)
[2017-09-11 01:00] LABS: ABG PCO2 18.5 MM HG (35-48)
[2017-09-11] MEDS ORDERED: MEROPENEM 1,000 MG in SYRINGE 1 EACH IV SCH (02:30)
[2017-09-11] MEDS ORDERED: VANCOMYCIN INJ 750 MG in SODIUM CHLORIDE 0.9% 250 ML IV SCH (02:30)
[2017-09-11] MEDS ORDERED: DOPamine 800 MG/250 ML PREMIX IV ONE (02:33)
[2017-09-11] MEDS: DOPamine 800 MG/250 ML PREMIX IV PRN ×3 (02:37→14:08)
[2017-09-11] MEDS ORDERED: DEXTROSE 50% 25 GM/50 ML VIAL IV ONE ×3 (02:37→03:00)
[2017-09-11] MEDS ORDERED: NOREPINEPHRINE 8 MG in SODIUM CHLORIDE 0.9% 242 ML IV PRN (02:47)
[2017-09-11] MEDS ORDERED: SODIUM CHLORIDE 0.9% 2,000 ML IV ONE (02:47)
[2017-09-11] MEDS ORDERED: PROPOFOL 1,000 MG/100 ML BOTTLE IV SCH (03:00)
[2017-09-11] MEDS ORDERED: LEVOTHYROXINE 100 MCG VIAL IV ONE (03:00)
[2017-09-11] MEDS ORDERED: HYDROCORTISONE 100 MG VIAL IV ONE ×3 (03:31→08:49)
[2017-09-11 03:37] LABS: Basophils % 0.3 % (0.0-0.8); Eosinophils % 0.1 % (0.00-10.9); Hematocrit 36.5 VOL% (42.0-52.0); Immature Granulocytes % 1.8 %; Immature Granulocytes Absolute 0.12 #; Lymphocytes # 0.6 10*3/uL (1.4-4.0); Lymphocytes % 9.5 % (21.2-54.2); Mean Corpuscular HGB Conc 32.9 GM/DL (32-36); Mean Corpuscular Hemoglobin 33 PG (27-34); Mean Corpuscular Volume 100.6 FL (87-102); Mean Platelet Volume 10.5 FL (9.6-12.0); Monocytes # 0.2 10*3/uL (0.11-0.8); Monocytes % 2.2 % (1.7-12.7); Neutrophils # 5.8 10*3/uL (1.4-7.4); Neutrophils % 86.1 % (38.7-73.9); Platelet Count 104 T/CUMM (130-400); Red Blood Count 3.63 MC/CUMM (3.8-5.5); Red Cell Distribution Width 15.7 % (9.3-17.3); White Blood Count 6.7 T/CUMM (4-12)
[2017-09-11 03:43] LABS: ABG Base Excess -13.3 MMOL/L (-2.5-2.5); ABG HCO3 14.3 MMOL/L (20-26); ABG Oxygen Saturation 98.6 % (95-100); ABG PCO2 32.9 MM HG (35-48); ABG PH 7.224 (7.35-7.45); ABG TCO2 12.3 MMOL/L (23-27)
[2017-09-11] MEDS: NOREPINEPHRINE 16 MG in SODIUM CHLORIDE 0.9% 234 ML IV PRN ×2 (03:55→11:12)
[2017-09-11] MEDS ORDERED: methylPREDNISolone SOD SUC 125 MG/2 ML VIAL IV ONE (04:00)
[2017-09-11 04:06] LABS: Albumin 1.8 G/DL (3.4-5.0); Bilirubin,Total 1.8 MG/DL (0.2-1.0); Calcium 6.9 MG/DL (8.5-10.1); Osmolality,Calculated 272.7 MOS/KG (273-304); Potassium 4.2 MMOL/L (3.5-5.1); Total Protein 5.5 G/DL (6.4-8.3)
[2017-09-11 04:18] LABS: Apearance,Urine CLEAR (Clear); Bacteria,Urine Occasional /HPF (Few); Bilirubin,Urine Negative (Negative); Blood, Urine Small mg/dL (Negative); Glucose,Urine (UA) Negative (Negative); Hyaline Casts,Urine 51 /LPF (0-3); Ketones,Urine Negative (Negative); Nitrite,Urine Negative (Negative); Protein,Urine Negative; RBC,Urine <1 /HPF (0-4); Urine Color Yellow (Yellow); Urine Specific Gravity 1.008 (1.001-1.035); Urine Urobilinogen < 2.0 EU/DL (0.2-1.0); WBC,Urine 1 /HPF (0-6)
[2017-09-11 04:26] LABS: Lactic Acid 8.6 MMOL/L (0.4-2.0)
[2017-09-11 05:46] LABS: Anisocytosis 1+
[2017-09-11 05:47] LABS: Macrocytosis 1+; Platelet Estimate Normal
[2017-09-11] MEDS ORDERED: LEVOTHYROXINE 100 MCG VIAL IV SCH (06:00)
[2017-09-11] MEDS ORDERED: LEVOTHYROXINE 25 MCG TABLET PO SCH (06:30)
[2017-09-11] MEDS ORDERED: LEVALBUTEROL 1.25 MG/3 ML NEB RESP TX SCH (07:00)
[2017-09-11 07:06] LABS: Barbiturates Screen,Urine Negative (Negative); Benzodiazepines Screen,Urine Negative (Negative); Cannabinoid Screen,Urine Negative (Negative); Opiate Screen,Urine Negative (Negative); Phencyclidine Screen,Urine Negative (Negative)
[2017-09-11] MEDS ORDERED: PHENYLEPHRINE INJ 160 MG in SODIUM CHLORIDE 0.9% 234 ML IV PRN (07:38)
[2017-09-11 08:14] LABS: Lactic Acid 8.2 MMOL/L (0.4-2.0)
[2017-09-11 08:20] LABS: Albumin 1.9 G/DL (3.4-5.0); Bilirubin,Total 2.4 MG/DL (0.2-1.0); Calcium 6.6 MG/DL (8.5-10.1); Osmolality,Calculated 270.5 MOS/KG (273-304); Total Protein 6.1 G/DL (6.4-8.3)
[2017-09-11] MEDS ORDERED: SODIUM BICARBONATE 50 MEQ/50 ML SYRINGE IV ONE ×2 (08:48→08:51)
[2017-09-11] MEDS ORDERED: SPIRONOLACTONE 25 MG TABLET PO SCH (09:00)
[2017-09-11] MEDS ORDERED: MAGNESIUM OXIDE 400 MG TABLET PO SCH (09:00)
[2017-09-11] MEDS ORDERED: MULTIVITAMIN (BEROCCA) TABLET PO SCH ×2 (09:00)
[2017-09-11] MEDS ORDERED: LISINOPRIL 5 MG TABLET PO SCH (09:00)
[2017-09-11] MEDS ORDERED: PANTOPRAZOLE 40 MG TABLET PO SCH (09:00)
[2017-09-11] MEDS ORDERED: PNEUMOCOCCAL VACCINE (23 VALENT) 0.5 ML VIAL IM ONE (09:00)
[2017-09-11] MEDS ORDERED: FUROSEMIDE 40 MG/4 ML VIAL IV SCH (09:00)
[2017-09-11] MEDS ORDERED: THIAMINE 200 MG/2 ML VIAL IV SCH (09:00)
[2017-09-11] MEDS ORDERED: PANTOPRAZOLE 40 MG VIAL IV SCH (09:30)
[2017-09-11 09:34] LABS: HIV Antigen/Antibody Result Nonreactive (Nonreactive)
[2017-09-11] MEDS: CARVEDILOL 3.125 MG TABLET PO SCH (10:20)
[2017-09-11 10:49] LABS: Apearance,Urine CLOUDY (Clear); Bacteria,Urine Few /HPF (Few); Bilirubin,Urine Negative (Negative); Blood, Urine Small mg/dL (Negative); Glucose,Urine (UA) 150 mg/dL (Negative); Ketones,Urine Negative (Negative); Mucus,Urine Occasional /LPF (Occasional); Nitrite,Urine Negative (Negative); Protein,Urine 100 MG/DL; RBC,Urine 30 /HPF (0-4); Sperm,Urine Many /HPF (Negative); Squamous Epithelial Cell,Urine Moderate /HPF (0-10); Urine Color Yellow (Yellow); Urine Urobilinogen < 2.0 EU/DL (0.2-1.0); WBC,Urine 40 /HPF (0-6)
[2017-09-11] MEDS ORDERED: DEXTROSE 50% 25 GM/50 ML VIAL IV PRN (11:20)
[2017-09-11] MEDS ORDERED: GLUCAGON 1 MG VIAL IM PRN (11:20)
[2017-09-11] MEDS ORDERED: HYDROCORTISONE 100 MG VIAL IV SCH (12:00)
[2017-09-11] MEDS ORDERED: INSULIN REGULAR 100 UNIT/ML SUBCUT SCH (12:00)
[2017-09-11 16:06] VITALS: BP 32/24
[2017-09-11] MEDS ORDERED: cefTRIAXone 1,000 MG in SYRINGE 1 EACH IV SCH (18:00)
== END 2017-09-11 14:39 | disposition expired | DRG 871 ==
LOC: N.ED 17:33 → SUATTDRO 18:56 → N.EDINP 18:56 → N.ICU 19:57
PROVIDERS: ADMIT Family Medicine; ATTEND Hospitalist